=== PATIENT | female | born 1965 | race Caucasian/White ===

== ENCOUNTER 2022-12-22 02:53 | Emergency (ER) | payer OTHER, SELFPAY ==
[2022-12-22 02:55] VITALS: BP 141/81; PULSE 87; RESP 18; TEMP 36.8; O2SAT 99; BMI 23.5
[2022-12-22 03:11] VITALS: BP 162/94; PULSE 81
[2022-12-22] MEDS: EPINEPHrine 1 MG/ML VIAL 0.3 MG IM (03:11)
[2022-12-22] MEDS: diphenhydrAMINE HCL 50 MG/ML VIAL IVPUSH (03:16)
[2022-12-22] MEDS: methylPREDNISolone Sod Succ 125 MG/2 ML VIAL IVPUSH (03:16)
[2022-12-22] MEDS: Famotidine/PF 20 MG/2 ML VIAL IVPUSH (03:16)
[2022-12-22 03:53] VITALS: BP 130/68; PULSE 81; RESP 18; O2SAT 100
[2022-12-22 04:36] VITALS: BP 121/49; PULSE 77; RESP 14; TEMP 36.6; O2SAT 99
--- NOTE | 2022-12-22 04:58 | ED.ALLEREA ---
HPI - Allergic Reaction General Chief complaint: Allergic Reaction Stated complaint: Allergic reaction Time Seen by Provider: 12/22/22 03:06 Source: patient Mode of arrival: ambulatory Limitations: no limitations History of Present Illness HPI narrative: Patient had flu shot yesterday woke up at middle of the night with lip swelling and hives all over never had similar reaction in the past denies any shortness of breath no chest pain or palpitation Related Data Previous Rx's Medication Instructions Recorded diphenhydramine HCl 25 mg capsule 50 mg (2 x 25 mg) PO TID PRN 12/22/22 (Benadryl) allergic reaction #20 caps prednisone 20 mg tablet 40 mg (2 x 20 mg) PO DAILY #10 tabs 12/22/22 Allergies Allergy/AdvReac Type Severity Reaction Status Date / Time Sulfa (Sulfonamide Allergy Unknown headache Verified 03/22/14 00:00 Antibiotics) No Known Allergies Allergy Unverified 12/31/19 14:46 topiramate AdvReac Unknown confusion Verified 03/22/14 00:00 Review of Systems Review of Systems: Yes all other systems are reviewed and are negative [facility] Social History Social History Advance Directives: No Advance Directives Information Provided: Yes Patient : No Physical Exam ED Vital Signs: Vital Signs - 24 hr 12/22/22 02:55 12/22/22 03:11 12/22/22 03:53 Temperature 98.2 F Pulse Rate 87 81 81 Respiratory Rate 18 18 Blood Pressure 141/81 H 162/94 H 130/68 Pulse Oximetry 99 100 Oxygen Delivery Method Room Air 12/22/22 04:36 Temperature 97.8 F Pulse Rate 77 Respiratory Rate 14 Blood Pressure 121/49 L Pulse Oximetry 99 Oxygen Delivery Method Room Air BMI result Body Mass Index 23.5 Appearance: Alert. Oriented X3. No acute distress. Eyes: PERRLA, No Nystagmus ENT: Pharynx normal. Oral Mucosa moist upper lip swelling+ tongue and uvula normal Neck: Normal inspection. Neck supple. CVS: Normal heart rate and rhythm. Pulses normal. Respiratory: No respiratory distress. Equal air entry bilateral, no wheezing/rales/rhonchi Abdomen: Soft and nontender. Bowel sounds are present, no mass palpable, no CVA tenderness Skin: Skin warm and dry. Normal skin color. Normal skin turgor. Hives over the extremities Extremities: No lower extremity edema. No calf tenderness Neuro: Oriented X 3. No motor deficit. No sensory deficit.No cerebellar signs , cranial nerves II-XII intact Medications Administered Discontinued Medications Generic Name Dose Route Start Last Admin Trade Name Freq PRN Reason Stop Dose Admin Diphenhydramine HCl 50 mg 12/22/22 03:06 12/22/22 03:16 Diphenhydramine Hcl 50 Mg/Ml Vial IVPUSH 12/22/22 03:07 50 mg ONCE ONE Administration Epinephrine 0.3 mg 12/22/22 03:06 12/22/22 03:11 Epinephrine 1 Mg/Ml Vial IM 12/22/22 03:07 0.3 mg STAT STA Administration Famotidine 20 mg 12/22/22 03:06 12/22/22 03:16 Famotidine/Pf 20 Mg/2 Ml Vial IVPUSH 12/22/22 03:07 20 mg ONCE ONE Administration Methylprednisolone Sodium Succinate 125 mg 12/22/22 03:06 12/22/22 03:16 Methylprednisolone Sod Succ 125 Mg/2 Ml Vial IVPUSH 12/22/22 03:07 125 mg ONCE ONE Administration Medical Decision Making Medical Decision Making [facility] Narrative: Patient with acute allergic reaction with lip swelling and hives etiology not clear possibly from the flu shot received EpiPen Benadryl steroids and Pepcid improved discharge patient home Discharge Plan Discharge Clinical Impression: Allergic reaction Patient Disposition: Home, Self-Care Instructions: General Allergic Reaction (ED) Additional Instructions: Pursued you have allergic reaction to the flu shot Take prednisone and Benadryl as prescribed if hives come back Report to the ER if worsening of the rash Prescriptions: New diphenhydramine HCl [Benadryl] 25 mg capsule 50 mg PO TID PRN (Reason: allergic reaction) Qty: 20 0RF prednisone 20 mg tablet 40 mg PO DAILY Qty: 10 0RF Interventions: ED Discharge Assessment Last Done: 12/22/22 05:15 Discharge Date/Time: 12/22/22 05:16
== END 2022-12-22 05:16 | disposition home or self-care (01) ==
PROVIDERS: Emergency Provider Internal Medicine
DX: L50.9 Urticaria, unspecified (principal); T78.40XA Allergy, unspecified, initial encounter; X58.XXXA Exposure to other specified factors, initial encounter
CPT/HCPCS: 96372; 96374; 96375; 99284; J0171; J1200; J2930

== ENCOUNTER 2023-02-07 11:20 | Outpatient (AMB) | payer OTHER, SELFPAY ==
[2023-02-07 11:54] VITALS: BP 130/70; PULSE 98; TEMP 37; O2SAT 98; BMI 24.7
--- NOTE | 2023-02-07 11:54 | AM.OFFWIN_ITS ---
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 Allergic reaction-Hives/Sinus Intake Note: pt is here for c/o possible allergic reaction, hives and sinus issues Allergies diphenhydramine [From Banophen Anti-Itch] Allergy (Mild, Verified 02/07/23 11:59) Hives zinc acetate [From Banophen Anti-Itch] Allergy (Mild, Verified 02/07/23 11:59) Hives Sulfa (Sulfonamide Antibiotics) Allergy (Unknown, Verified 02/07/23 11:59) headache topiramate Adverse Reaction (Unknown, Verified 02/07/23 11:59) confusion Do you need a note to return to daycare/school/sports/work: Yes HPI HPI Comments History of Present Illness Details 57-year-old female presents for large re action and hives. Patient has an allergy to mushrooms accidentally ingested mushrooms soft. She endorses hives to come and go. She states this happened before in the thighs always come back worse and she has had anaphylaxis or 4. She also endorses some sinus pressure and fullness. Review of Systems Skin/Breast Details: Hives Reports pruritus Physical Exam Vital Signs: Last Vital Signs Temp 98.6 F 02/07/23 11:54 Pulse 98 02/07/23 11:54 BP 130/70 02/07/23 11:54 Pulse Ox 98 02/07/23 11:54 Oxygen Delivery Method Room Air 02/07/23 11:54 BMI result Body Mass Index 24.7 Const General: cooperative, no acute distress and alert Orientation/consciousness: patient oriented x3 Limitations: no limitations HEENT Head: Yes normal to inspection Ears: hearing grossly normal bilaterally and external ears normal General nose exam: Normal external nose present Eyes General: appearance normal, both eyes and all related structures Neck Other: No wheezing or stridor Neck: Yes normal visual inspection Chest Chest palpation & inspection: normal inspection of the chest Resp Effort & Inspection: normal respiratory effort, able to speak in complete sentences and no audible wheezes Auscultation: clear to auscultation bilaterally Cardio Rate: regular rate Rhythm: regular rhythm GI Inspection: Yes normal to inspection Palpation (GI): Soft to palpation and nontender Skin Other: Hives on the inner portion of right thigh General skin exam: no rashes or lesions noted Neuro General: patient oriented x3 Psych Appearance: grossly normal Mental Status: mental status grossly normal Speech and movement: Normal speech and movement present Affect: normal affect Attitude: cooperative Thought process: Normal thought process present Thought content: Normal thought content present Assessment & Plan Assessment & Plan (1) Allergic reaction: Code(s): T78.40XA - Allergy, unspecified, initial encounter Qualifiers: Encounter type: initial encounter Qualified Code(s): T78.40XA - Allergy, unspecified, initial encounter Plan: VSs. Exam notable for hives on the inner right thigh no wheezing or stridor present low suspicion for an for access. Will prescribe cetirizine prednisone and at the autoinjector. Plan VSS. Exam notable for high Center portion of the right thigh no wheezing or stridor. Full suspicion for anaphylaxis suspect allergic reaction will prescribe prednisone cetirizine and EpiPen Dragon Medications: New cetirizine (All Day Allergy (cetirizine)) Can take up to 40 mg daily 20 mg (2 x 10 mg) PO DAILY 5 days PRN 30 caps 0RF allergy symptoms epinephrine 0.3 mg (0.3 mL) IM Q4H PRN 2 ea 0RF anaphylaxis prednisone 50 mg PO DAILY 5 days 5 tabs 0RF Coding Level of Care Code New Pt Level 3 (48493) Diagnoses Allergic reaction, initial encounter T78.40XA Encounter type: initial encounter
== END 2023-02-07 12:42 | disposition home or self-care (01) ==
PROVIDERS: Visit Provider Physician Assistant
DX: T78.40XA Allergy, unspecified, initial encounter (principal)
CPT/HCPCS: 99203

== ENCOUNTER 2023-03-20 11:36 | Emergency (ER) | payer OTHER, SELFPAY ==
[2023-03-20 11:55] VITALS: BP 125/69; PULSE 78; RESP 18; TEMP 36.7; O2SAT 97; BMI 25.0
[2023-03-20 12:12] VITALS: BP 144/53; PULSE 74; RESP 14; O2SAT 98
[2023-03-20] MEDS: diphenhydrAMINE HCL 50 MG/ML VIAL IVPUSH (12:17)
[2023-03-20] MEDS: Famotidine/PF 20 MG/2 ML VIAL IVPUSH (12:17)
[2023-03-20] MEDS: methylPREDNISolone Sod Succ 125 MG/2 ML VIAL IVPUSH (12:18)
[2023-03-20 12:27] VITALS: BP 150/79; PULSE 75
[2023-03-20] MEDS: EPINEPHrine 1 MG/ML VIAL 0.3 MG IM (12:27)
--- NOTE | 2023-03-20 12:33 | PC.NURSE ---
pt medicated per MAR, facial swelling - lower lip, pt reports waking up with lower lip swelling, ate imitation crab last night. pt a&ox4, vss, lung sounds clear. pt reports hx of panic attacks.
[2023-03-20 13:30] VITALS: BP 103/46; PULSE 78; RESP 13; TEMP 37.1; O2SAT 98
--- NOTE | 2023-03-20 14:55 | ED.ALLEREA ---
HPI - Allergic Reaction General Chief complaint: Allergic Reaction Stated complaint: Diff Breathing Allergic Reaction to Seafood Time Seen by Provider: 03/20/23 12:10 Source: patient Mode of arrival: ambulatory Limitations: no limitations History of Present Illness HPI narrative: 57-year-old female with history of hyperlipidemia depression who presents emergency department for evaluation of allergic reaction. Patient states that she woke up this morning and had swelling of her right lower lip and a rash on her lower extremities. She states that the swelling of her lips got worse, she became short of breath, she felt dizzy and lightheaded, she denied difficulty swallowing, nausea or vomiting. She took Benadryl at home despite taking Benadryl her symptoms got worse therefore she came to the emergency department for evaluation. She states she has had allergic reaction before in the past after eating black olives. She has no known drug allergies. Related Data Home Medications Medication Instructions Recorded Confirmed atorvastatin 10 mg tablet 10 mg PO DAILY 02/07/23 brexpiprazole 0.5 mg tablet 0.5 mg PO DAILY 02/07/23 (Rexulti) escitalopram oxalate 20 mg tablet 20 mg PO DAILY 02/07/23 (Lexapro) hydroxyzine HCl 10 mg tablet 10 mg PO BID 02/07/23 lamotrigine 25 mg tablet 50 mg PO DAILY 02/07/23 levothyroxine 25 mcg tablet 25 mcg PO DAILY 02/07/23 lorazepam 1 mg tablet 1 mg PO BID 02/07/23 omeprazole 20 mg capsule,delayed 20 mg PO BID 02/07/23 release oxcarbazepine 300 mg tablet 300 mg PO BID 02/07/23 triamcinolone acetonide 0.1 % 1 appl topical BID-TID 02/07/23 topical cream vilazodone 20 mg tablet 20 mg PO DAILY 02/07/23 Previous Rx's Medication Instructions Recorded cetirizine 10 mg capsule (All Day 20 mg (2 x 10 mg) PO DAILY PRN 02/07/23 Allergy (cetirizine)) allergy symptoms 5 days #30 caps epinephrine 0.3 mg/0.3 mL 0.3 mg (0.3 mL) IM Q4H PRN 02/07/23 injection, auto-injector anaphylaxis #2 ea prednisone 50 mg tablet 50 mg PO DAILY 5 days #5 tabs 02/07/23 prednisone 20 mg tablet 60 mg (3 x 20 mg) PO DAILY 5 days 03/20/23 #15 tabs Allergies Allergy/AdvReac Type Severity Reaction Status Date / Time zinc acetate Allergy Mild Hives Verified 02/07/23 11:59 [From Banophen Anti-Itch] Sulfa (Sulfonamide Allergy Unknown headache Verified 02/07/23 11:59 Antibiotics) topiramate AdvReac Unknown confusion Verified 02/07/23 11:59 Review of Systems Review of Systems: Yes all other systems are reviewed and are negative [facility] Past Medical History [facility] Narrative: Social history: She denies tobacco and alcohol use. Social History Social History Smoked in Last 30 Days: No Use of substances other than those prescribed or required for medical reasons: No Advance Directives: No Advance Directives Information Provided: Yes Physical Exam ED Vital Signs: Vital Signs - 24 hr 03/20/23 11:55 03/20/23 12:12 03/20/23 12:27 Temperature 98.1 F Pulse Rate 78 74 75 Respiratory Rate 18 14 Blood Pressure 125/69 144/53 H 150/79 H Pulse Oximetry 97 98 Oxygen Delivery Method Room Air Room Air 03/20/23 13:30 Temperature 98.7 F Pulse Rate 78 Respiratory Rate 13 Blood Pressure 103/46 L Pulse Oximetry 98 Oxygen Delivery Method Room Air BMI result Body Mass Index 25.0 Vital signs were normal Exam: General: Awake, alert in no distress Head: Normocephalic, atraumatic EENT: PERRL, Lids symmetric swelling of the lower lip consistent with angioedema, sclera normal, conjunctiva normal, nose normal , ears normal, throat without erythema or exudates Neck: Supple, no adenopathy, no trachea midline or C-spine tenderness Lung: breath sounds symmetric, no wheezing, rales or rhonchi Chest: symmetric movement, nontender Heart: regular rate and rhythm, normal S1, S2 no murmurs or rubs Abdomen: soft, non-tender, nondistended, normal bowel sounds Back: no vertebral tenderness, no CVAT Extremities: no deformities, moves all extremities symmetrically Skin: Patient has an urticarial rash on her lower extremity Neuro: Awake, alert, oriented, normal speech, cranial nerves intact, moves all extremities symmetrically Psych: Pleasant, cooperative Medications Administered Discontinued Medications Generic Name Dose Route Start Last Admin Trade Name Freq PRN Reason Stop Dose Admin Diphenhydramine HCl 50 mg 03/20/23 12:07 03/20/23 12:17 Diphenhydramine Hcl 50 Mg/Ml Vial IVPUSH 03/20/23 12:08 50 mg ONCE ONE Administration Epinephrine 0.3 mg 03/20/23 12:17 03/20/23 12:27 Epinephrine 1 Mg/Ml Vial IM 03/20/23 12:18 0.3 mg STAT STA Administration Famotidine 20 mg 03/20/23 12:07 03/20/23 12:17 Famotidine/Pf 20 Mg/2 Ml Vial IVPUSH 03/20/23 12:08 20 mg ONCE ONE Administration Methylprednisolone Sodium Succinate 125 mg 03/20/23 12:07 03/20/23 12:18 Methylprednisolone Sod Succ 125 Mg/2 Ml Vial IVPUSH 03/20/23 12:08 125 mg ONCE ONE Administration Medical Decision Making Medical Decision Making MDM Narrative: 57-year-old female with a history of hyperlipidemia depression who presents emergency department for evaluation of allergic reaction that started earlier this morning at worse prior to coming to the emergency department. Patient has swelling of her lower lip, shortness of breath, dizziness and urticarial rash in her lower extremities. Patient was treated with the following medications: Epinephrine 0.3 mg IM, Solu-Medrol 125 mg IV, Benadryl 50 mg IV and Pepcid 20 mg IV Patient was placed on a cardiac and O2 saturation monitor. 15:03 Patient was observed on the cardiac and O2 saturation monitor for 2 hours after administration of the epinephrine with no rebound reaction. Patient's lip swelling did improve slightly, the patient's rash and shortness of breath resolved completely. Patient was discharged home with a prescription for prednisone 60 mg once a day for 5 days, she was advised to continue taking Benadryl as needed for rash and pruritus. She was given printed and verbal instructions prior to discharge Differential Diagnosis Differential diagnosis includes was not limited to allergic reaction, anaphylaxis Admission/Observation Consideration of admission/observation: Escalation of care including admission/observation considered Chronic Conditions Patient?s care impacted by: Other (Hyperlipidemia, depression) Discharge Plan Discharge Clinical Impression: Urticarial rash Allergic reaction Qualifiers: Encounter type: initial encounter Qualified Code(s): T78.40XA - Allergy, unspecified, initial encounter Angioedema of lips Qualifiers: Encounter type: initial encounter Qualified Code(s): T78.3XXA - Angioneurotic edema, initial encounter Patient Disposition: Home, Self-Care Instructions: General Allergic Reaction (ED) Additional Instructions: Take prednisone 20 mg pills, 3 pills once a day for 5 days. While you are taking prednisone, do not take any NSAIDs (Motrin, Advil, ibuprofen, Aleve, naproxen). Take your 1st dose of prednisone tomorrow morning. Take Benadryl (diphenhydramine) 25 mg pills, 2 pills 4 times a day for the next 2-3 days to help reduce the swelling and itchiness in the area of your rash. This medication will make you sleepy. Do not drive or work while taking this medication. Follow-up with your doctor in 2 days. Please return to the emergency department if your symptoms get worse or if you develop any symptoms that are concerning to you. Prescriptions: New prednisone 20 mg tablet 60 mg PO DAILY 5 Days Qty: 15 0RF No Action omeprazole 20 mg capsule,delayed release(DR/EC) 20 mg PO BID escitalopram oxalate [Lexapro] 20 mg tablet 20 mg PO DAILY triamcinolone acetonide 0.1 % cream 1 appl topical BID-TID atorvastatin 10 mg tablet 10 mg PO DAILY lorazepam 1 mg tablet 1 mg PO BID levothyroxine 25 mcg tablet 25 mcg PO DAILY hydroxyzine HCl 10 mg tablet 10 mg PO BID lamotrigine 25 mg tablet 50 mg PO DAILY oxcarbazepine 300 mg tablet 300 mg PO BID vilazodone 20 mg tablet 20 mg PO DAILY Rexulti 0.5 mg tablet 0.5 mg PO DAILY prednisone 50 mg tablet 50 mg PO DAILY 5 Days Qty: 5 0RF All Day Allergy (cetirizine) 10 mg capsule 20 mg PO DAILY PRN (Reason: allergy symptoms) 5 Days Qty: 30 0RF Rx Instructions: Can take up to 40 mg daily epinephrine 0.3 mg/0.3 mL auto-injector 0.3 mg IM Q4H PRN (Reason: anaphylaxis) Qty: 2 0RF
== END 2023-03-20 15:08 | disposition home or self-care (01) ==
PROVIDERS: Emergency Provider Emergency Medicine Emergency Medical Services
DX: T78.3XXA Angioneurotic edema, initial encounter (principal); T78.40XA Allergy, unspecified, initial encounter; X58.XXXA Exposure to other specified factors, initial encounter; E78.5 Hyperlipidemia, unspecified
CPT/HCPCS: 96372; 96374; 96375; 99284; J0171; J1200; J2930

== ENCOUNTER 2023-04-13 23:15 | Emergency (ER) | payer MEDICARE, MEDICAID, SELFPAY ==
[2023-04-13 23:20] VITALS: BP 163/93; PULSE 105; RESP 18; TEMP 36.8; O2SAT 97; BMI 24.9
--- NOTE | 2023-04-13 23:45 | ED_ITS ---
HPI - Allergic Reaction General Chief complaint: Allergic Reaction Stated complaint: allergic reaction Time Seen by Provider: 04/13/23 23:43 Source: patient and family Mode of arrival: ambulatory Limitations: no limitations History of Present Illness HPI narrative: 57-year-old female came in for evaluation of lip swelling, rashes and itching on the body after taking a shower with a soap that she has been using for months patient did not realize she was allergic to the soap, same thing happen yesterday patient had to administer 2 EpiPen at home yesterday to control the symptoms. Upper lip swelling, mild facial swelling, diffuse rash and hives on torso noticed on exam. No voice change, no SOB. Related Data Home Medications Medication Instructions Recorded Confirmed atorvastatin 10 mg tablet 10 mg PO DAILY 02/07/23 brexpiprazole 0.5 mg tablet 0.5 mg PO DAILY 02/07/23 (Rexulti) escitalopram oxalate 20 mg tablet 20 mg PO DAILY 02/07/23 (Lexapro) hydroxyzine HCl 10 mg tablet 10 mg PO BID 02/07/23 lamotrigine 25 mg tablet 50 mg PO DAILY 02/07/23 levothyroxine 25 mcg tablet 25 mcg PO DAILY 02/07/23 lorazepam 1 mg tablet 1 mg PO BID 02/07/23 omeprazole 20 mg capsule,delayed 20 mg PO BID 02/07/23 release oxcarbazepine 300 mg tablet 300 mg PO BID 02/07/23 triamcinolone acetonide 0.1 % 1 appl topical BID-TID 02/07/23 topical cream vilazodone 20 mg tablet 20 mg PO DAILY 02/07/23 Previous Rx's Medication Instructions Recorded cetirizine 10 mg capsule (All Day 20 mg (2 x 10 mg) PO DAILY PRN 02/07/23 Allergy (cetirizine)) allergy symptoms 5 days #30 caps epinephrine 0.3 mg/0.3 mL 0.3 mg (0.3 mL) IM Q4H PRN 02/07/23 injection, auto-injector anaphylaxis #2 ea prednisone 50 mg tablet 50 mg PO DAILY 5 days #5 tabs 02/07/23 prednisone 20 mg tablet 60 mg (3 x 20 mg) PO DAILY 5 days 03/20/23 #15 tabs epinephrine 0.3 mg/0.3 mL 0.3 mg (0.3 mL) IM Q4H PRN 04/14/23 injection, auto-injector (EpiPen anaphylaxis #2 ea 2-Reg) Allergies Allergy/AdvReac Type Severity Reaction Status Date / Time zinc acetate Allergy Mild Hives Verified 04/13/23 23:19 [From Banophen Anti-Itch] Sulfa (Sulfonamide Allergy Unknown headache Verified 04/13/23 23:19 Antibiotics) topiramate AdvReac Unknown confusion Verified 04/13/23 23:19 Review of Systems Review of Systems: All other systems are reviewed and are negative Constitutional: Reports as per HPI and Reports no additional constitutional complaints Eyes: Reports as per HPI and Reports no additional eye complaints Reports system reviewed and no additional complaints, except as documented Cardiovascular: Reports as per HPI and Reports no additional cardiovascular complaints Respiratory: Reports as per HPI and Reports no additional respiratory complaints Gastrointestinal: Reports as per HPI and Reports no additional gastrointestinal complaints Genitourinary: Reports no additional female genitourinary complaints Musculoskeletal: Reports no additional musculoskeletal complaints Skin/Breast: Reports system reviewed and no additional complaints, except as docu Psychiatric: Reports no additional psychiatric complaints Endocrine: Reports no additional endocrine complaints Hematologic/Lymphatic: Reports no additional hematologic/lymphatic complaints Allergic/Immunologic: Reports no additional allergic/immunologic complaints Reports system reviewed and no additional complaints, except as documented and Reports Abnormal speech present [facility] Social History Social History Advance Directives: No Advance Directives Information Provided: No Physical Exam ED Vital Signs: Vital Signs - 24 hr 04/13/23 23:20 Temperature 98.3 F Pulse Rate 105 H Respiratory Rate 18 Blood Pressure 163/93 H Pulse Oximetry 97 Oxygen Delivery Method Room Air BMI result Body Mass Index 24.9 Vital signs have been reviewed and appear to be correct. Blood pressure elevated. Heart rate normal. Respiratory rate normal. Temperature normal. Oxygen saturation normal. Appearance: Alert. Oriented X3. No acute distress. Head: Normal external exam. Normocephalic. Atraumatic. No [place] signs noted. No raccoon eyes noted Eyes: PERRLA. EOMI. Conjunctiva and sclera normal. Eyelids normal. ENT: TM's Normal. Pharynx normal. Uvula midline. Moist mucous membranes. No trismus noted. No drooling noted. No muffled voice noted. Neck: Normal inspection. Neck supple. FROM. No adenopathy. Thyroid Normal. No meningeal signs. No neck mass noted. CVS: Normal heart rate and rhythm. Heart sound normal. No murmurs noted. Pulses normal throughout. Respiratory: No respiratory distress. Painless inspiration. Breath sounds normal. No wheezes/rales/rhonchi noted. Chest nontender. No accessory muscle usage noted or decreased air movement noted. Abdomen: Soft and nontender. Bowel sounds normal in all 4 quadrants. No distention noted. No organomegaly noted. No visible injury noted. Back: No CVA tenderness. Full range of motion noted. Skin: Upper lip swelling, no tongue swelling all patent airway with no stridor, diffuse hives mostly on the anterior abdomin. Extremities: No lower extremity edema. Extremities exhibit normal range of motion. Extremities nontender. Neuro: Oriented X 3. Cranial nerve exam: II-XII are grossly intact No motor deficit. No sensory deficit. Reflexes normal. Course Reevaluation(s) Reevaluation #1: Patient received 2 L of normal saline, Solu-Medrol, Benadryl, decrease itching and rashes and facial swelling, patent airway. Will discharge the patient with EpiPen, refrain from using the same soap that caused the patient's symptoms. Time: 01:10 Medications Administered Discontinued Medications Generic Name Dose Route Start Last Admin Trade Name Freq PRN Reason Stop Dose Admin Diphenhydramine HCl 50 mg 04/13/23 23:43 04/13/23 23:56 Diphenhydramine Hcl 50 Mg/Ml Vial IVPUSH 04/13/23 23:44 50 mg ONCE ONE Administration Famotidine 20 mg 04/13/23 23:43 04/13/23 23:56 Famotidine/Pf 20 Mg/2 Ml Vial IVPUSH 04/13/23 23:44 20 mg ONCE ONE Administration Sodium Chloride 1,000 mls @ 999 mls/hr 04/13/23 23:43 04/13/23 23:57 Ns IV 04/14/23 00:43 999 mls/hr .Q1H1M ONE Administration Methylprednisolone Sodium Succinate 125 mg 04/13/23 23:43 04/13/23 23:56 Methylprednisolone Sod Succ 125 Mg/2 Ml Vial IVPUSH 04/13/23 23:44 125 mg ONCE ONE Administration Medical Decision Making Differential Diagnosis Differential Diagnoses: The differential diagnosis associated with the presentation includes (Angioedema, allergic reaction, upper airway obstruction.) Admission/Observation Consideration of admission/observation: Escalation of care including admission/observation considered Discharge Plan Discharge Clinical Impression: Allergic reaction, Angioedema Patient Disposition: Home, Self-Care Instructions: Angioedema (ED) Additional Instructions: Avoid using the same soap that caused your symptoms. Prescriptions: New epinephrine [EpiPen 2-Reg] 0.3 mg/0.3 mL auto-injector 0.3 mg IM Q4H PRN (Reason: anaphylaxis) Qty: 2 3RF No Action prednisone 20 mg tablet 60 mg PO DAILY 5 Days Qty: 15 0RF omeprazole 20 mg capsule,delayed release(DR/EC) 20 mg PO BID escitalopram oxalate [Lexapro] 20 mg tablet 20 mg PO DAILY triamcinolone acetonide 0.1 % cream 1 appl topical BID-TID atorvastatin 10 mg tablet 10 mg PO DAILY lorazepam 1 mg tablet 1 mg PO BID levothyroxine 25 mcg tablet 25 mcg PO DAILY hydroxyzine HCl 10 mg tablet 10 mg PO BID lamotrigine 25 mg tablet 50 mg PO DAILY oxcarbazepine 300 mg tablet 300 mg PO BID vilazodone 20 mg tablet 20 mg PO DAILY Rexulti 0.5 mg tablet 0.5 mg PO DAILY prednisone 50 mg tablet 50 mg PO DAILY 5 Days Qty: 5 0RF All Day Allergy (cetirizine) 10 mg capsule 20 mg PO DAILY PRN (Reason: allergy symptoms) 5 Days Qty: 30 0RF Rx Instructions: Can take up to 40 mg daily epinephrine 0.3 mg/0.3 mL auto-injector 0.3 mg IM Q4H PRN (Reason: anaphylaxis) Qty: 2 0RF Referrals: Migel Davis MD [Primary Care Provider] -
[2023-04-13] MEDS: Famotidine/PF 20 MG/2 ML VIAL IVPUSH (23:56)
[2023-04-13] MEDS: methylPREDNISolone Sod Succ 125 MG/2 ML VIAL IVPUSH (23:56)
[2023-04-13] MEDS: diphenhydrAMINE HCL 50 MG/ML VIAL IVPUSH (23:56)
[2023-04-13] MEDS: 0.9 % Sodium Chloride 1,000 ML 999 ML IV (23:57)
[2023-04-14] MEDS: 0.9 % Sodium Chloride 1,000 ML 999 ML IV (01:26)
[2023-04-14 03:06] VITALS: BP 144/80; PULSE 77; RESP 14; TEMP 36.7; O2SAT 97
--- NOTE | 2023-04-14 03:34 | PC.NURSE ---
pt denies difficulty breathing vss pt ambulatory at discharge. iv removed at discharge pt verbalized concern about no script for steroid at home use this rn made dr harp aware of pt concern. script added pt made aware. pt provided with discharge packet. pt verbalized understanding of discharge plan
== END 2023-04-14 03:39 | disposition home or self-care (01) ==
PROVIDERS: Emergency Provider Emergency Medicine; PCP Pediatrics
DX: L50.0 Allergic urticaria (principal); R22.9 Localized swelling, mass and lump, unspecified; T78.49XA Other allergy, initial encounter; X58.XXXA Exposure to other specified factors, initial encounter; Z79.899 Other long term (current) drug therapy
CPT/HCPCS: 96361; 96374; 96375; 99284; J1200; J2930

== ENCOUNTER 2023-05-03 14:23 | Outpatient (AMB) | payer OTHER, SELFPAY ==
[2023-05-03 14:38] VITALS: BP 152/84; PULSE 77; TEMP 36.8; O2SAT 97; BMI 26.3
--- NOTE | 2023-05-03 14:38 | AM.OFFWIN_ITS ---
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 PFSH Social History Patient Tobacco Use Status: Never used Tobacco Review of Systems Const All systems reviewed & are unremarkable except as noted in HPI and below Physical Exam Vital Signs: Last Vital Signs Temp 98.3 F 05/03/23 14:38 Pulse 77 05/03/23 14:38 BP 152/84 H 05/03/23 14:38 Pulse Ox 97 05/03/23 14:38 Oxygen Delivery Method Room Air 05/03/23 14:38 BMI result Body Mass Index 26.3 Const General: comfortable and no acute distress HEENT Head: Yes normocephalic Ears: external ears normal and TM's normal bilaterally General nose exam: Abnormal mucous membranes and turbinates present boggy and erythematous and Nasal discharge present Face and sinus: Yes normal facial exam Mouth: Normal oral and palatal mucosa present Throat: Yes posterior oropharynx normal Resp Effort & Inspection: normal respiratory effort, no audible wheezes and no cough Auscultation: clear to auscultation bilaterally Cardio Rate: regular rate Rhythm: regular rhythm Assessment & Plan Assessment & Plan (1) Acute rhinosinusitis: Code(s): J01.90 - Acute sinusitis, unspecified Plan: - OTC Cold remedies - Warm fluids - Rest Medications: New 2 azithromycin 500 mg PO DAILY 3 tabs 0RF 3 days J01.90 - Acute sinusitis, unspecified Coding Level of Care Code Est Pt Level 2 (89804) Diagnoses Acute rhinosinusitis J01.90 Time Spent (min) 10
== END 2023-05-03 15:11 | disposition home or self-care (01) ==
PROVIDERS: PCP Pediatrics; Visit Provider Nurse Practitioner Family
DX: J01.90 Acute sinusitis, unspecified (principal)
CPT/HCPCS: 99213

== ENCOUNTER 2023-05-15 10:46 | Outpatient (AMB) | payer OTHER, SELFPAY ==
[2023-05-15 11:16] VITALS: BP 126/70; PULSE 85; TEMP 36.6; O2SAT 98; BMI 26.3
--- NOTE | 2023-05-15 11:16 | MHC.OFFWIV ---
Intake Vital Signs 05/15/23 11:16 Height 5 ft 4 in Weight 153 lb 2 oz BMI 26.3 BP 126/70 Blood Pressure Location Rt brachial Position Sitting Pulse 85 Pulse Source Pulse Oximeter Temp 97.9 F Temp Source Oral Pulse Oximetry (%) 98 Oxygen Delivery Method Room Air Intake Visit Reasons: EP Allergic reactions/Lip Swelling Intake Note: Pt is here c/o having an allergic reaction to an ice pop. Pt states she ate it last night and woke up with swollen lips. Patient Tobacco Use Status: Never used Tobacco Allergies zinc acetate [From Banophen Anti-Itch] Allergy (Mild, Verified 05/15/23 11:17) Hives Sulfa (Sulfonamide Antibiotics) Allergy (Unknown, Verified 05/15/23 11:17) headache topiramate Adverse Reaction (Unknown, Verified 05/15/23 11:17) confusion Do you need a note to return to daycare/school/sports/work: No HPI HPI Comments History of Present Illness Details This is a 57-year-old female with a past medical history of multiple food and environmental allergies, hyperlipidemia and depression presenting for evaluation of swelling in her lower lip that she woke up with this morning. Patient states that she ate a popsicle last night at approximately 10:00 p.m., had no symptoms, went to bed and woke up with swelling in her lower lip. Patient denies having any hives, enlargement of her tongue, difficulty swallowing or shortness of breath. Patient took a Benadryl 25 mg at 10:00 a.m. today and presented to the urgent care for evaluation. [facility] Social History Patient Tobacco Use Status: Never used Tobacco Review of Systems Const All systems reviewed & are unremarkable except as noted in HPI and below Denies chills, Denies fatigue and Denies fever(s) Eyes Reports as per HPI ENT Details: lower lip swelling Denies sore throat, Denies throat swelling and Denies tongue swelling Card Reports no additional complaints Resp Reports no additional complaints Endo Denies fatigue Aller/Immun Reports no additional complaints, Denies throat swelling and Denies tongue swelling Physical Exam Vital Signs: Last Vital Signs Temp 97.9 F 05/15/23 11:16 Pulse 85 05/15/23 11:16 BP 126/70 05/15/23 11:16 Pulse Ox 98 05/15/23 11:16 Oxygen Delivery Method Room Air 05/15/23 11:16 BMI result Body Mass Index 26.3 Patient is not tachycardic, tachypneic or hypoxic. Const General: cooperative, healthy appearing, comfortable, no acute distress, alert, awake and Physically active; No acute distress Nutritional Appearance: average body habitus Orientation/consciousness: patient oriented x3 Limitations: no limitations HEENT Head: Yes normal to inspection Ears: hearing grossly normal bilaterally General nose exam: Normal external nose present Face and sinus: Yes sinuses nontender, No sinus tenderness and No amato face Mouth: Normal oral and palatal mucosa present, lip abnormal (mild edema lower lip; no edema upper lip or tongue), oropharynx normal, moist mucous membranes, no muffled voice and normal tongue Teeth and gingiva: dentition normal Throat: Yes posterior oropharynx normal (There is no edema of the posterior oropharynx) and Yes other (Patient is managing secretions independently) Eyes Eyelids: Yes eyelids normal Conjunctivae: conjunctivae normal Sclerae: sclerae normal Corneas: corneas normal Pupils: Equal, round and reactive pupils present EOM: EOMs intact bilaterally Resp Effort & Inspection: normal respiratory effort, able to speak in complete sentences, no audible wheezes and not tachypneic Auscultation: clear to auscultation bilaterally Cardio Rate: regular rate Rhythm: regular rhythm Skin Other: no hives, wheals, urticaria noted on examination Neuro General: patient oriented x3 Cranial nerves: Yes Equal, round and reactive pupils present Psych Appearance: grossly normal Mental Status: mental status grossly normal Insight: Good insight present (Psych) Judgement: Good judgement present (Psych) Assessment & Plan Assessment & Plan (1) Lip swelling: Comment: Patient has subjective enlargement of the lower lip only and no clinical signs consistent with anaphylaxis are global allergic reaction. Code(s): R22.0 - Localized swelling, mass and lump, head Plan: Diphenhydramine 25 mg q.6 hours x 24 hours. Patient will go to the emergency department directly if her symptoms acutely worsen. Coding Level of Care Code Est Pt Level 3 (79084) Diagnoses Lip swelling R22.0 Time Spent (min) 20
== END 2023-05-15 11:43 | disposition home or self-care (01) ==
PROVIDERS: PCP Pediatrics; Visit Provider Physician Assistant
DX: R22.0 Localized swelling, mass and lump, head (principal)
CPT/HCPCS: 99213

== ENCOUNTER 2023-05-29 09:16 | Outpatient (AMB) | payer OTHER, SELFPAY ==
[2023-05-29 10:50] VITALS: BP 140/100; TEMP 37.4; BMI 25.7
--- NOTE | 2023-05-29 10:50 | MHC.OFFWIV ---
Intake Vital Signs 05/29/23 10:50 Height 5 ft 4 in Weight 150 lb BMI 25.7 BP 140/100 H Blood Pressure Location Lt brachial Position Sitting Temp 99.3 F Temp Source Temporal Artery Scan Intake Visit Reasons: EST/allergy eye swelling ([phone]) Intake Note: pt is here today for allergy eye swelling started yesterday Patient Tobacco Use Status: Never used Tobacco Allergies zinc acetate [From Banophen Anti-Itch] Allergy (Mild, Verified 05/29/23 11:23) Hives Sulfa (Sulfonamide Antibiotics) Allergy (Unknown, Verified 05/29/23 11:23) headache topiramate Adverse Reaction (Unknown, Verified 05/29/23 11:23) confusion Medication List - Last Reconciled 05/29/23 by Arnaud Campos MD atorvastatin 10 mg PO DAILY azelastine intranasal azithromycin 500 mg PO DAILY 3 days epinephrine (EpiPen 2-Reg) 0.3 mg (0.3 mL) IM Q4H PRN epinephrine 0.3 mg (0.3 mL) IM Q4H PRN escitalopram oxalate (Lexapro) 20 mg PO DAILY levothyroxine 25 mcg PO DAILY lorazepam 1 mg PO BID omeprazole 20 mg PO BID triamcinolone acetonide 0.1% 1 appl topical BID-TID Do you need a note to return to daycare/school/sports/work: No HPI EST/allergy eye swelling ([phone]) HPI Details 57 yr old female presents to the office with complaints of a rash. Sx present for a day. Mostly in the upper thighs and around the eyes. Predominant complaint is itching. 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 Right and left thighs: Fading erythematous macular lesions. No vesicles or pustules Assessment & Plan Assessment & Plan (1) Rash: Code(s): R21 - Rash and other nonspecific skin eruption Plan: No lesions around the eyes seen. Most likely allergic reaction. Prednisone called in. Coding Level of Care Code Est Pt Level 3 (34361) Diagnoses Rash R21
== END 2023-05-29 12:43 | disposition home or self-care (01) ==
PROVIDERS: PCP Pediatrics; Visit Provider Internal Medicine
DX: R21 Rash and other nonspecific skin eruption (principal)
CPT/HCPCS: 99213

== ENCOUNTER 2023-06-09 23:34 | Emergency (ER) | payer OTHER, SELFPAY ==
[2023-06-09 23:40] VITALS: BP 151/71; PULSE 77; RESP 16; TEMP 36.6; O2SAT 99; BMI 25.7
--- NOTE | 2023-06-10 | ED.ALLEREA ---
HPI - Allergic Reaction General Chief complaint: Allergic Reaction Stated complaint: allergic reaction Time Seen by Provider: 06/09/23 23:45 Source: patient Mode of arrival: ambulatory Limitations: no limitations History of Present Illness HPI narrative: 57 yo female with PMH of allergies, recent sinusitis took amoxicillin at 2pm and 9pm upper lip felt tight and swollen no resp issues no rash took 50mg benadryl prior to arrival it has not worsened. Not on CRUZ-i MD complaint: facial swelling Onset (ago): hour(s) (11pm ) Exposure: medication Symptoms: lip swelling Severity: mild Treatment prior to arrival: benadryl Previous Allergic Reaction History: prior ED visit(s) and angioedema Related Data Home Medications Medication Instructions Recorded Confirmed atorvastatin 10 mg tablet 10 mg PO DAILY 02/07/23 05/29/23 escitalopram oxalate 20 mg tablet 20 mg PO DAILY 02/07/23 05/29/23 (Lexapro) levothyroxine 25 mcg tablet 25 mcg PO DAILY 02/07/23 05/29/23 lorazepam 1 mg tablet 1 mg PO BID 02/07/23 05/29/23 omeprazole 20 mg capsule,delayed 20 mg PO BID 02/07/23 05/29/23 release triamcinolone acetonide 0.1 % 1 appl topical BID-TID 02/07/23 05/29/23 topical cream azelastine 137 mcg (0.1 %) nasal intranasal 05/29/23 05/29/23 spray aerosol Previous Rx's Medication Instructions Recorded epinephrine 0.3 mg/0.3 mL 0.3 mg (0.3 mL) IM Q4H PRN 02/07/23 injection, auto-injector anaphylaxis #2 ea epinephrine 0.3 mg/0.3 mL 0.3 mg (0.3 mL) IM Q4H PRN 04/14/23 injection, auto-injector (EpiPen anaphylaxis #2 ea 2-Reg) azithromycin 500 mg tablet 500 mg PO DAILY 3 days #3 tabs 05/03/23 prednisone 20 mg tablet 60 mg (3 x 20 mg) PO DAILY #9 tabs 05/29/23 azithromycin 250 mg tablet See Rx Instructions PO .COMPLEX #6 06/10/23 tabs epinephrine 0.3 mg/0.3 mL 0.3 mg (0.3 mL) IM Q10M PRN 06/10/23 injection, auto-injector anaphylaxis #2 ea Allergies Allergy/AdvReac Type Severity Reaction Status Date / Time zinc acetate Allergy Mild Hives Verified 06/09/23 23:40 [From Banophen Anti-Itch] Sulfa (Sulfonamide Allergy Unknown headache Verified 06/09/23 23:40 Antibiotics) amoxicillin Allergy Swelling Verified 06/09/23 23:40 topiramate AdvReac Unknown confusion Verified 06/09/23 23:40 Review of Systems Review of Systems: Constitutional : No Fever, No Chills ENT/Mouth : positive oral swelling, No Hoarseness, No Swallowing Difficulty Eyes: No Eye Pain, No Swelling, No Redness Cardiovascular : No Chest Pain, No SOB Respiratory : No Cough, No Sputum, No Wheezing, No Smoke Exposure, No Dyspnea Gastrointestinal : No Nausea, No Vomiting, No Diarrhea, No abdominal Pain Genitourinary : No Dysuria, No Urinary Frequency, No Hematuria Musculoskeletal : No joint pain, No Myalgias, No Joint Swelling Skin : No Skin Lesions, no rash Neuro : No Weakness, No Numbness, No Headache Psych : No Anxiety/Panic, No Depression Heme/Lymph: No Bruising, No Lymphadenopathy Endocrine : No Polyuria, No Polydipsia All other systems reviewed and are negative [facility] Past Medical History Attestation statement: The following information was validated with the patient. Source: old records reviewed Medical History Allergies Sinusitis Depression Social History Social History Patient Tobacco Use Status: Never used Tobacco Smoked in Last 30 Days: No Use of substances other than those prescribed or required for medical reasons: No Any prior treatment program specific to substance use: No Advance Directives: No Advance Directives Information Provided: No Physical Exam ED Vital Signs: Vital Signs - 24 hr 06/09/23 23:40 Temperature 97.9 F Pulse Rate 77 Respiratory Rate 16 Blood Pressure 151/71 H Pulse Oximetry 99 Oxygen Delivery Method Room Air BMI result Body Mass Index 25.7 Appearance: Alert. Oriented X3. No acute distress. Eyes: Pupils equal, round and reactive to light. ENT: upper lip mild swelling otherwise oral area is normal no tongue, soft palate uvula swelling no hoarse voice no muffled voice Neck: Normal inspection. Neck supple. CVS: Normal heart rate and rhythm. Pulses normal. Respiratory: No respiratory distress. Breath sounds normal. Abdomen: Soft and nontender. Skin: Skin warm and dry. Normal skin color. Normal skin turgor. Extremities: No lower extremity edema. No calf ttp Neuro: Oriented X 3. No motor deficit. No sensory deficit. Course Course Course Narrative: symptoms improving anticipate she will be DC - plan to watch until 2am but swelling mostly resolved, already has epi pen at home Medications Administered Discontinued Medications Generic Name Dose Route Start Last Admin Trade Name Kristen PRN Reason Stop Dose Admin Famotidine 20 mg 06/09/23 23:49 06/10/23 00:06 Famotidine/Pf 20 Mg/2 Ml Vial IVPUSH 06/09/23 23:50 20 mg ONCE ONE Administration Loratadine 10 mg 06/09/23 23:49 06/10/23 00:06 Loratadine 10 Mg Tablet PO 06/09/23 23:50 10 mg ONCE ONE Administration Medical Decision Making Medical Decision Making [facility] Narrative: 57 yo female with PMH of depression, allergies, just took a 2 doses of amoxicillin yesterday 2pm and 9pm for sinusitis around 11pm she wok eup with lip swelling and tingling it is mild. at this time no need for epi pen she is refusing steroids as she states it has caused rash and worsens her mental health. We did discuss if it worsens she will need IV steroids. Will observe and take her off of amoxicillin Differential Diagnosis Differential Diagnoses: The differential diagnosis associated with the presentation includes allergic reaction Admission/Observation Consideration of admission/observation: Escalation of care including admission/observation considered observe for a couple of hours to make sure there is no progression External Record Review External record reviewed: Outpatient record Prescription Management I considered prescription management with: Antibiotic and Other Discharge Plan Discharge Clinical Impression: Lip swelling Patient Disposition: Home, Self-Care Instructions: Angioedema (ED) Additional Instructions: stop taking amoxicillin return for worsening symptoms of throat closing, inability to breathe, tongue swelling or any other concerns. a new antibiotic in in the pharmacy for you along with epi pen you can take zyrtec OR claritin daily for the next week Prescriptions: New azithromycin 250 mg tablet See Rx Instructions PO .COMPLEX Qty: 6 0RF Rx Instructions: For 250 mg dose pack: take 500 mg today (day 1), then 250 mg for 4 days (days 2-5) epinephrine 0.3 mg/0.3 mL auto-injector 0.3 mg IM Q10M PRN (Reason: anaphylaxis) Qty: 2 0RF Rx Instructions: for 2 doses No Action epinephrine [EpiPen 2-Reg] 0.3 mg/0.3 mL auto-injector 0.3 mg IM Q4H PRN (Reason: anaphylaxis) Qty: 2 3RF omeprazole 20 mg capsule,delayed release(DR/EC) 20 mg PO BID escitalopram oxalate [Lexapro] 20 mg tablet 20 mg PO DAILY triamcinolone acetonide 0.1 % cream 1 appl topical BID-TID atorvastatin 10 mg tablet 10 mg PO DAILY lorazepam 1 mg tablet 1 mg PO BID levothyroxine 25 mcg tablet 25 mcg PO DAILY epinephrine 0.3 mg/0.3 mL auto-injector 0.3 mg IM Q4H PRN (Reason: anaphylaxis) Qty: 2 0RF azithromycin 500 mg tablet 500 mg PO DAILY 3 Days Qty: 3 0RF azelastine 137 mcg (0.1 %) aerosol,spray intranasal prednisone 20 mg tablet 60 mg PO DAILY Qty: 9 0RF
[2023-06-10] MEDS: Famotidine/PF 20 MG/2 ML VIAL IVPUSH (00:06)
[2023-06-10] MEDS: Loratadine 10 MG TABLET PO (00:06)
[2023-06-10 02:22] VITALS: BP 128/66; PULSE 64; RESP 13; TEMP 36.8; O2SAT 98
== END 2023-06-10 02:28 | disposition home or self-care (01) ==
PROVIDERS: Emergency Provider Emergency Medicine
DX: K13.0 Diseases of lips (principal); J32.9 Chronic sinusitis, unspecified; Z91.09 Other allergy status, other than to drugs and biological substances
CPT/HCPCS: 96374; 99284

== ENCOUNTER 2023-06-11 21:53 | Emergency (ER) | payer MEDICARE, MEDICAID, SELFPAY ==
--- NOTE | 2023-06-11 | ECG_ITS ---
Test Reason : ALLERGIC REACTION Blood Pressure : / mmHG Vent. Rate : 098 BPM Atrial Rate : 098 BPM P-R Int : 136 ms QRS Dur : 076 ms QT Int : 338 ms P-R-T Axes : 062 065 017 degrees QTc Int : 431 ms Normal sinus rhythm T wave abnormality, consider inferior ischemia Abnormal ECG When compared to the previous EKG of 05 july 2010, inferior T inversions new. Referred By: Generic ED Physician Electronically Signed By:SAMMIE DANIELSON
[2023-06-11 22:01] VITALS: BP 165/76; PULSE 97; RESP 14; TEMP 36.9; O2SAT 97; BMI 31.4
--- NOTE | 2023-06-11 22:18 | ED.ALLEREA ---
HPI - Allergic Reaction General Chief complaint: Allergic Reaction Stated complaint: Allergic reaction antibiotics Time Seen by Provider: 06/11/23 22:11 Source: patient Mode of arrival: ambulatory Limitations: no limitations History of Present Illness HPI narrative: Patient allergic to mushrooms and amoxicillin start taking Zithromax since yesterday sinusitis also patient had popcorn with new type of salt which she had yesterday today again she had popcorn after eating popcorn she noticed swelling of the lower lip no rash no itching swelling localized to the lower lip no difficulty in breathing no tongue swelling speech is normal no nausea no vomiting Related Data Home Medications Medication Instructions Recorded Confirmed atorvastatin 10 mg tablet 10 mg PO DAILY 02/07/23 05/29/23 escitalopram oxalate 20 mg tablet 20 mg PO DAILY 02/07/23 05/29/23 (Lexapro) levothyroxine 25 mcg tablet 25 mcg PO DAILY 02/07/23 05/29/23 lorazepam 1 mg tablet 1 mg PO BID 02/07/23 05/29/23 omeprazole 20 mg capsule,delayed 20 mg PO BID 02/07/23 05/29/23 release triamcinolone acetonide 0.1 % 1 appl topical BID-TID 02/07/23 05/29/23 topical cream azelastine 137 mcg (0.1 %) nasal intranasal 05/29/23 05/29/23 spray aerosol Previous Rx's Medication Instructions Recorded epinephrine 0.3 mg/0.3 mL 0.3 mg (0.3 mL) IM Q4H PRN 02/07/23 injection, auto-injector anaphylaxis #2 ea epinephrine 0.3 mg/0.3 mL 0.3 mg (0.3 mL) IM Q4H PRN 04/14/23 injection, auto-injector (EpiPen anaphylaxis #2 ea 2-Reg) azithromycin 500 mg tablet 500 mg PO DAILY 3 days #3 tabs 05/03/23 prednisone 20 mg tablet 60 mg (3 x 20 mg) PO DAILY #9 tabs 05/29/23 azithromycin 250 mg tablet See Rx Instructions PO .COMPLEX #6 06/10/23 tabs epinephrine 0.3 mg/0.3 mL 0.3 mg (0.3 mL) IM Q10M PRN 06/10/23 injection, auto-injector anaphylaxis #2 ea Allergies Allergy/AdvReac Type Severity Reaction Status Date / Time zinc acetate Allergy Mild Hives Verified 06/11/23 22:01 [From Banophen Anti-Itch] Sulfa (Sulfonamide Allergy Unknown headache Verified 06/11/23 22:01 Antibiotics) amoxicillin Allergy Swelling Verified 06/11/23 22:01 topiramate AdvReac Unknown confusion Verified 06/11/23 22:01 Review of Systems Review of Systems: Yes all other systems are reviewed and are negative PMFSH Past Medical History Medical History Allergies Sinusitis Depression Social History Social History Patient Tobacco Use Status: Never used Tobacco Smoked in Last 30 Days: No Use of substances other than those prescribed or required for medical reasons: No Advance Directives: No Advance Directives Information Provided: No Patient : No Physical Exam ED Vital Signs: Vital Signs - 24 hr 06/11/23 22:01 06/11/23 23:57 Temperature 98.5 F 97.8 F Pulse Rate 97 76 Respiratory Rate 14 12 Blood Pressure 165/76 H 118/70 Pulse Oximetry 97 97 Oxygen Delivery Method Room Air Room Air BMI result Body Mass Index 31.4 Appearance: Alert. Oriented X3. No acute distress. ENT: Pharynx normal. Oral Mucosa moist localized swelling of the lower lip uvula normal tongue normal, no stridor Neck: Normal inspection. Neck supple. CVS: Normal heart rate and rhythm. Pulses normal. Respiratory: No respiratory distress. Equal air entry bilateral, no wheezing/rales/rhonchi Abdomen: Soft and nontender. Bowel sounds are present, Skin: Skin warm and dry. Normal skin color. Normal skin turgor. Neuro: Oriented X 3. No motor deficit. Medications Administered Discontinued Medications Generic Name Dose Route Start Last Admin Trade Name Freq PRN Reason Stop Dose Admin Dexamethasone 10 mg 06/11/23 22:19 06/11/23 22:25 Dexamethasone 2 Mg Tablet PO 06/11/23 22:20 10 mg ONCE ONE Administration Diphenhydramine HCl 50 mg 06/11/23 22:19 06/11/23 22:25 Diphenhydramine Hcl 25 Mg Capsule PO 06/11/23 22:20 50 mg ONCE ONE Administration Famotidine 20 mg 06/11/23 22:20 06/11/23 22:25 Famotidine 20 Mg Tablet PO 06/11/23 22:21 20 mg ONCE ONE Administration Medical Decision Making Medical Decision Making MDM Narrative: Patient with localized allergic reaction not on CRUZ inhibitor likely from popcorn/salt. Unlikely from Zithromax. Will give her Decadron and Benadryl and Pepcid Patient felt better during stay in the ER no further progression of the angioedema/allergic rash discharge patient home on Benadryl Discharge Plan Discharge Clinical Impression: Allergic reaction, Lip swelling Patient Disposition: Home, Self-Care Instructions: General Allergic Reaction (ED) Additional Instructions: Likely allergic to salt/popcorn which you had earlier Take Benadryl 1-2 tablets every 6 hours as needed Swelling should get better in a day or so Report to the ER if worsening of the swelling or swelling of the tongue or difficulty in swallowing Prescriptions: No Action azithromycin 250 mg tablet See Rx Instructions PO .COMPLEX Qty: 6 0RF Rx Instructions: For 250 mg dose pack: take 500 mg today (day 1), then 250 mg for 4 days (days 2-5) epinephrine 0.3 mg/0.3 mL auto-injector 0.3 mg IM Q10M PRN (Reason: anaphylaxis) Qty: 2 0RF Rx Instructions: for 2 doses epinephrine [EpiPen 2-Reg] 0.3 mg/0.3 mL auto-injector 0.3 mg IM Q4H PRN (Reason: anaphylaxis) Qty: 2 3RF omeprazole 20 mg capsule,delayed release(DR/EC) 20 mg PO BID escitalopram oxalate [Lexapro] 20 mg tablet 20 mg PO DAILY triamcinolone acetonide 0.1 % cream 1 appl topical BID-TID atorvastatin 10 mg tablet 10 mg PO DAILY lorazepam 1 mg tablet 1 mg PO BID levothyroxine 25 mcg tablet 25 mcg PO DAILY epinephrine 0.3 mg/0.3 mL auto-injector 0.3 mg IM Q4H PRN (Reason: anaphylaxis) Qty: 2 0RF azithromycin 500 mg tablet 500 mg PO DAILY 3 Days Qty: 3 0RF azelastine 137 mcg (0.1 %) aerosol,spray intranasal prednisone 20 mg tablet 60 mg PO DAILY Qty: 9 0RF Interventions: ED Discharge Assessment Last Done: 06/12/23 00:18 Discharge Date/Time: 06/12/23 00:18
[2023-06-11] MEDS: diphenhydrAMINE HCL 25 MG CAPSULE 50 MG PO (22:25)
[2023-06-11] MEDS: dexAMETHasone 2 MG TABLET 10 MG PO (22:25)
[2023-06-11] MEDS: Famotidine 20 MG TABLET PO (22:25)
--- NOTE | 2023-06-11 22:34 | PC.NURSE ---
this rn assumed care of pt. pt reports taking z-pack for 3 days and reports after dose this morning she developed lower lip swelling an hour ago. pt talking in full clear sentences, lung sounds clear bilaterally, throat patent. pt denies n/v/d and chest pain. denies rash at this time. pt normal sinus on tele 80-83.
--- NOTE | 2023-06-11 23:26 | PC.NURSE ---
pt resting in stretcher, no acute distress noted. pt lower lip noted to be swollen, denies SOB. lung sounds clear bilaterally.
[2023-06-11 23:57] VITALS: BP 118/70; PULSE 76; RESP 12; TEMP 36.6; O2SAT 97
== END 2023-06-12 00:18 | disposition home or self-care (01) ==
PROVIDERS: Emergency Provider Internal Medicine
DX: L50.0 Allergic urticaria (principal); R94.31 Abnormal electrocardiogram [ECG] [EKG]
CPT/HCPCS: 93005; 99283; 99285; J8540

== ENCOUNTER → 2023-06-11 22:11 | Outpatient (BNV) | payer OTHER, MEDICAID, SELFPAY | PROVIDERS: Emergency Provider Internal Medicine; Visit Provider Internal Medicine | DX: Z88.1 Allergy status to other antibiotic agents (principal) | CPT/HCPCS: 93010 ==

== ENCOUNTER 2023-06-28 02:48 | Emergency (ER) | payer OTHER, MEDICAID, SELFPAY ==
[2023-06-28 03:03] VITALS: BP 139/81; PULSE 97; RESP 18; TEMP 36.2; O2SAT 96; BMI 26.8
[2023-06-28 06:23] VITALS: BP 144/75; PULSE 99; RESP 14; TEMP 37.2; O2SAT 99
[2023-06-28 07:11] VITALS: BP 151/64; RESP 18; O2SAT 97
--- NOTE | 2023-06-28 07:28 | ED.ALLEREA ---
HPI - Allergic Reaction General Chief complaint: Allergic Reaction Stated complaint: allergic reaction Time Seen by Provider: 06/28/23 06:58 History of Present Illness HPI narrative: Patient is a 57-year-old has a history of allergic reaction to unknown substance. Patient complaining of itchy skin some rashes over the body. Took some Benadryl without any relief. Patient is from home. There is no difficulty in voice. There has no difficulty in breathing. There has no lesion inside her mouth. Had a history of something similar. The last time was about a month ago. Patient has an appointment to see an concrete pointer in 6 months. He is trying to move that up. No fever no chills no systemic complaints Related Data Home Medications Medication Instructions Recorded Confirmed atorvastatin 10 mg tablet 10 mg PO DAILY 02/07/23 05/29/23 escitalopram oxalate 20 mg tablet 20 mg PO DAILY 02/07/23 05/29/23 (Lexapro) levothyroxine 25 mcg tablet 25 mcg PO DAILY 02/07/23 05/29/23 lorazepam 1 mg tablet 1 mg PO BID 02/07/23 05/29/23 omeprazole 20 mg capsule,delayed 20 mg PO BID 02/07/23 05/29/23 release triamcinolone acetonide 0.1 % 1 appl topical BID-TID 02/07/23 05/29/23 topical cream azelastine 137 mcg (0.1 %) nasal intranasal 05/29/23 05/29/23 spray aerosol Previous Rx's Medication Instructions Recorded epinephrine 0.3 mg/0.3 mL 0.3 mg (0.3 mL) IM Q4H PRN 02/07/23 injection, auto-injector anaphylaxis #2 ea epinephrine 0.3 mg/0.3 mL 0.3 mg (0.3 mL) IM Q4H PRN 04/14/23 injection, auto-injector (EpiPen anaphylaxis #2 ea 2-Reg) azithromycin 500 mg tablet 500 mg PO DAILY 3 days #3 tabs 05/03/23 prednisone 20 mg tablet 60 mg (3 x 20 mg) PO DAILY #9 tabs 05/29/23 azithromycin 250 mg tablet See Rx Instructions PO .COMPLEX #6 06/10/23 tabs epinephrine 0.3 mg/0.3 mL 0.3 mg (0.3 mL) IM Q10M PRN 06/10/23 injection, auto-injector anaphylaxis #2 ea famotidine 20 mg tablet (Pepcid) 20 mg PO BID 5 days #10 tabs 06/28/23 prednisone 20 mg tablet 40 mg (2 x 20 mg) PO DAILY #10 tabs 06/28/23 Allergies Allergy/AdvReac Type Severity Reaction Status Date / Time zinc acetate Allergy Mild Hives Verified 06/11/23 22:01 [From Banophen Anti-Itch] Sulfa (Sulfonamide Allergy Unknown headache Verified 06/11/23 22:01 Antibiotics) amoxicillin Allergy Swelling Verified 06/11/23 22:01 topiramate AdvReac Unknown confusion Verified 06/11/23 22:01 Review of Systems Review of Systems: Positive rash Yes all other systems are reviewed and are negative [facility] Past Medical History Attestation statement: The following information was validated with the patient. Medical History Allergies Sinusitis Depression Social History Social History Alcohol intake: never Patient Tobacco Use Status: Never used Tobacco Smoked in Last 30 Days: No Use of substances other than those prescribed or required for medical reasons: No Advance Directives: No Advance Directives Information Provided: No Physical Exam ED Vital Signs: Vital Signs - 24 hr 06/28/23 03:03 06/28/23 06:23 06/28/23 07:11 Temperature 97.1 F 99.0 F Pulse Rate 97 99 Respiratory Rate 18 14 18 Blood Pressure 139/81 144/75 H 151/64 H Pulse Oximetry 96 99 97 Oxygen Delivery Method Room Air Room Air Room Air BMI result Body Mass Index 26.8 Appearance: Alert. Oriented X3. No acute distress. Eyes: Pupils equal, round and reactive to light. ENT: Pharynx normal. Neck: Normal inspection. Neck supple. No lymph nodes noted. No crepitus CVS: Normal heart rate and rhythm. Pulses normal. Normal S1 and S2 Respiratory: No respiratory distress. Breath sounds normal. No Wheezing. No rales Abdomen: Soft and nontender. No rigidity. No distention. good BS x4 Skin: Skin warm and dry. Normal skin color. Normal skin turgor. Positive red irregularly bordered slightly raised blanching rash over the legs and abdomen. Pruritic Extremities: No lower extremity edema. Neurovascular intact to all extremities. No Lacerations. No Rash Neuro: Oriented X 3. No motor deficit. No sensory deficit. Moving all extermities. No slurred speech Medical Decision Making Medical Decision Making MDM Narrative: Question allergic reaction. Patient already took Benadryl with only moderate relief. We will go ahead and give patient some steroids. Pepcid close follow-up on an outpatient basis there is no respiratory distress. Patient's lungs are clear. Vital signs are normal. Will discharge patient home close follow-up on an outpatient basis. Patient has been seen multiple times for allergic reaction. Differential Diagnosis Differential Diagnoses: The differential diagnosis associated with the presentation includes Allergic reaction, anaphylaxis, [place] Admission/Observation Consideration of admission/observation: Escalation of care including admission/observation considered Discharge Plan Discharge Clinical Impression: Allergic reaction Patient Disposition: Home, Self-Care Instructions: General Allergic Reaction (ED) Prescriptions: New prednisone 20 mg tablet 40 mg PO DAILY Qty: 10 0RF famotidine [Pepcid] 20 mg tablet 20 mg PO BID 5 Days Qty: 10 0RF No Action azithromycin 250 mg tablet See Rx Instructions PO .COMPLEX Qty: 6 0RF Rx Instructions: For 250 mg dose pack: take 500 mg today (day 1), then 250 mg for 4 days (days 2-5) epinephrine 0.3 mg/0.3 mL auto-injector 0.3 mg IM Q10M PRN (Reason: anaphylaxis) Qty: 2 0RF Rx Instructions: for 2 doses epinephrine [EpiPen 2-Reg] 0.3 mg/0.3 mL auto-injector 0.3 mg IM Q4H PRN (Reason: anaphylaxis) Qty: 2 3RF omeprazole 20 mg capsule,delayed release(DR/EC) 20 mg PO BID escitalopram oxalate [Lexapro] 20 mg tablet 20 mg PO DAILY triamcinolone acetonide 0.1 % cream 1 appl topical BID-TID atorvastatin 10 mg tablet 10 mg PO DAILY lorazepam 1 mg tablet 1 mg PO BID levothyroxine 25 mcg tablet 25 mcg PO DAILY epinephrine 0.3 mg/0.3 mL auto-injector 0.3 mg IM Q4H PRN (Reason: anaphylaxis) Qty: 2 0RF azithromycin 500 mg tablet 500 mg PO DAILY 3 Days Qty: 3 0RF azelastine 137 mcg (0.1 %) aerosol,spray intranasal prednisone 20 mg tablet 60 mg PO DAILY Qty: 9 0RF Referrals: Physician,Unknown J [Primary Care Provider] - (Please follow-up with your concrete pointer within a week)
[2023-06-28 08:02] VITALS: BP 151/64; PULSE 99; RESP 18; TEMP 37.1; O2SAT 98
== END 2023-06-28 08:03 | disposition home or self-care (01) ==
PROVIDERS: Emergency Provider Emergency Medicine Emergency Medical Services
DX: T78.40XA Allergy, unspecified, initial encounter (principal); X58.XXXA Exposure to other specified factors, initial encounter
CPT/HCPCS: 99283; 99284

== ENCOUNTER 2023-09-16 08:12 | Outpatient (AMB) | payer MEDICARE, MEDICAID, SELFPAY ==
[2023-09-16 08:51] VITALS: BP 112/70; PULSE 89; TEMP 36.2; O2SAT 98; BMI 26.8
--- NOTE | 2023-09-16 08:51 | AM.OFFWIN_ITS ---
Intake Vital Signs 09/16/23 08:51 Height 5 ft 4 in Weight 70.76 kg BMI 26.8 BP 112/70 Blood Pressure Location Lt brachial Position Sitting Pulse 89 Pulse Source Pulse Oximeter Temp 97.2 F Temp Source Temporal Artery Scan Pulse Oximetry (%) 98 Oxygen Delivery Method Room Air Intake Visit Reasons: EP allergic reaction Intake Note: pt is here today for allergic reaction started saturday Patient Tobacco Use Status: Never used Tobacco Allergies zinc acetate [From Banophen Anti-Itch] Allergy (Mild, Verified 09/16/23 08:55) Hives Sulfa (Sulfonamide Antibiotics) Allergy (Unknown, Verified 09/16/23 08:55) headache amoxicillin Allergy (Verified 09/16/23 08:55) Swelling topiramate Adverse Reaction (Unknown, Verified 09/16/23 08:55) confusion Do you need a note to return to daycare/school/sports/work: No HPI EP allergic reaction HPI Details Patient presents with 4 days of hives mostly on her lower extremity but also some on the trunk. She notes she has been to an flight agent and is known to break out in hives at times from exposure to chlorine and swimming pools, a llergies are also heightened during pollen season for her. She has been using Xyzal Q 24 hours with minimal relief. She went in and exercise pool twice last week. Denies shortness of breath or difficulty breathing. [facility] Medical History Allergies Sinusitis Depression Social History Alcohol intake: never Patient Tobacco Use Status: Never used Tobacco Review of Systems Const Reports no additional complaints Eyes Reports no additional complaints ENT Reports as per HPI Card Reports no additional complaints Resp Reports as per HPI and Reports no additional complaints GI Reports no additional complaints Skin/Breast Reports as per HPI Physical Exam Vital Signs: Last Vital Signs Temp 97.2 F 09/16/23 08:51 Pulse 89 09/16/23 08:51 BP 112/70 09/16/23 08:51 Pulse Ox 98 09/16/23 08:51 Oxygen Delivery Method Room Air 09/16/23 08:51 BMI result Body Mass Index 26.8 Const General: cooperative, comfortable and no acute distress Orientation/consciousness: patient oriented x3 HEENT General nose exam: Normal external nose present Face and sinus: Yes normal facial exam Mouth: Normal oral and palatal mucosa present Throat: Yes posterior oropharynx normal Resp Effort & Inspection: normal respiratory effort Auscultation: clear to auscultation bilaterally Cardio Rate: regular rate Rhythm: regular rhythm Heart sounds: S1 normal heart sound present and S2 normal heart sound present Skin General skin exam: turgor normal Rashes: rashes noted (Urticaria noted also concentrated on lower extremities, thighs with scatter) Neuro General: patient oriented x3 Assessment & Plan Assessment & Plan (1) Hives: Code(s): L50.9 - Urticaria, unspecified Plan: Patient advised to avoid contact with coordinated pools. We will start a 10 day prednisone taper 50 mg to 10 mg over 10 days. ER if worsening symptoms tongue lip or mouth swelling or wheezing or shortness of occur. Follow-up with flight agent as planned. Medications: New prednisone 5 pills day 1 and 2, 4 pills day 3 and 4, 3 pills day 5 and 6, 2 pills day 7 and 8, 1 pill day 9 and 10 10 mg PO DIRECTED 30 tabs 0RF Coding Level of Care Code Est Pt Level 3 (76510) Diagnoses Hives L50.9
== END 2023-09-16 09:26 | disposition home or self-care (01) ==
PROVIDERS: Visit Provider Physician Assistant
DX: L50.9 Urticaria, unspecified (principal)
CPT/HCPCS: 99213

== ENCOUNTER 2023-10-10 10:15 | Outpatient (AMB) | payer MEDICARE, MEDICAID, SELFPAY ==
--- NOTE | 2023-10-10 10:19 | AM.OFFWIN_ITS ---
Intake Vital Signs 10/10/23 10:22 Height 5 ft 4 in Weight 156 lb BMI 26.8 BP 126/74 Blood Pressure Location Lt brachial Position Sitting Pulse 86 Pulse Source Pulse Oximeter Temp 98.1 F Temp Source Oral Pulse Oximetry (%) 98 Intake Visit Reasons: EP allergic reaction rash legs from lubriderm Intake Note: pt is here for allergic reaction to rash on legs Patient Tobacco Use Status: Never used Tobacco Allergies zinc acetate [From Banophen Anti-Itch] Allergy (Mild, Verified 10/10/23 10:22) Hives Sulfa (Sulfonamide Antibiotics) Allergy (Unknown, Verified 10/10/23 10:22) headache amoxicillin Allergy (Verified 10/10/23 10:22) Swelling topiramate Adverse Reaction (Unknown, Verified 10/10/23 10:22) confusion Do you need a note to return to daycare/school/sports/work: No HPI HPI Comments History of Present Illness Details Pateint is a 58 year old female complaining of breaking out an itchy h hector on both of her legs that she believes is from Lubriderm lotion. She states this started 4 days ago. She denies any fevers. She states she does have an appointment with an business initiatives manager in early October because she seems to be allergic to a lot of creams and lotions. She states this has happened before where she applies a new cream to her body and she ends up breaking out in hives. She states she just moved here from [place] and she is having issues with allergic reactions to environmental. She states she has tried steroid creams in the past and they do not work, she states the only thing that will help is oral prednisone [facility] Medical History Allergies Sinusitis Depression Social History Alcohol intake: never Patient Tobacco Use Status: Never used Tobacco Review of Systems Const All systems reviewed & are unremarkable except as noted in HPI and below Physical Exam Vital Signs: Last Vital Signs Temp 98.1 F 10/10/23 10:22 Pulse 86 10/10/23 10:22 BP 126/74 10/10/23 10:22 Pulse Ox 98 10/10/23 10:22 BMI result Body Mass Index 26.8 Const General: cooperative, healthy appearing, comfortable, no acute distress and well developed Orientation/consciousness: patient oriented x3 Limitations: no limitations Eyes General: appearance normal, both eyes and all related structures Resp Effort & Inspection: normal respiratory effort and able to speak in complete sentences Skin Other: 4-5 areas of 1cm circular erythema that is raised on posterior right lower extremity, 3 more similar circular raised erythematous areas on right thigh Neuro General: patient oriented x3 Assessment & Plan Assessment & Plan (1) Allergic dermatitis: Code(s): L23.9 - Allergic contact dermatitis, unspecified cause Plan: Sent prednisone taper to pharmacy for patient advised to make sure she follows up with her business initiatives manager, as scheduled. We did discuss the risks and benefits of prednisone. Patient understands and agrees with plan. Plan See above Medications: New prednisone On days 1&2, take 3 tablets with breakfast. On days 3&4 take 2 tablets with breakfast, on days 5&6 take 1.5 tablets with breakfast, on days 7&8 take 1 tablet with breakfast, on days 9&10 take 0.5 tablet with breakfast. 20 mg PO DAILY 16 tabs 0RF Coding Level of Care Code Est Pt Level 3 (63967) Diagnoses Allergic dermatitis L23.9
[2023-10-10 10:22] VITALS: BP 126/74; PULSE 86; TEMP 36.7; O2SAT 98; BMI 26.8
== END 2023-10-10 11:45 | disposition home or self-care (01) ==
PROVIDERS: Visit Provider Physician Assistant
DX: L23.9 Allergic contact dermatitis, unspecified cause (principal)
CPT/HCPCS: 99213

== ENCOUNTER 2023-11-09 14:31 | Outpatient (AMB) | payer MEDICARE, MEDICAID, SELFPAY ==
[2023-11-09 14:31] VITALS: BP 138/82; PULSE 86; TEMP 36.8; O2SAT 98
--- NOTE | 2023-11-09 14:31 | AM.OFFWIN_ITS ---
Intake Vital Signs 11/09/23 14:31 Height 5 ft 4 in BP 138/82 Blood Pressure Location Rt brachial Position Sitting Pulse 86 Pulse Source Pulse Oximeter Temp 98.2 F Temp Source Temporal Artery Scan Pulse Oximetry (%) 98 Intake Visit Reasons: EP/ Allergic reaction Intake Note: pt is here for allergic reaction on legs Patient Tobacco Use Status: Never used Tobacco Allergies zinc acetate [From Banophen Anti-Itch] Allergy (Mild, Verified 11/09/23 14:50) Hives Sulfa (Sulfonamide Antibiotics) Allergy (Unknown, Verified 11/09/23 14:50) headache amoxicillin Allergy (Verified 11/09/23 14:50) Swelling topiramate Adverse Reaction (Unknown, Verified 11/09/23 14:50) confusion Medication List - Last Reconciled 11/09/23 by Joanna Altamirano, MIXED SIGNAL DESIGN ENGINEER- atorvastatin 10 mg PO DAILY azelastine intranasal epinephrine 0.3 mg (0.3 mL) IM Q10M PRN escitalopram oxalate (Lexapro) 20 mg PO DAILY famotidine (Pepcid) 20 mg PO BID 5 days levothyroxine 25 mcg PO DAILY lorazepam 1 mg PO BID omeprazole 20 mg PO BID triamcinolone acetonide 0.1% 1 appl topical BID-TID Do you need a note to return to daycare/school/sports/work: No HPI HPI Comments History of Present Illness Details 58-year-old female here today for recurr ent dermatitis. She reports multiple allergies and sensitivities. Has been seen at the walk-in several times for the same. She was recently evaluated by an supervisor fruit grading who advised her to refrain from using any products that are highly scented. Unfortunately she use [place] fabric softener and her laundry and then developed hives. The hives are on the inside of her right thigh and on her left waist. They started yesterday. Time spent reviewing the last 2 urgent care visit notes. Exam Awake alert oriented Speaking in full sentences Urticaria on the inside of right thigh, left waist Plan States that she can not tolerate topical steroid cream. States that she responds very well to prednisone taper. I have sent this in. Advised for her to follow up with her primary care and discuss a referral to a senior javascript engineer. She thinks that this would be a good idea. Advised to avoid known irritants. This note is constructed using voice recognition software. While every effort has been made to ensure accuracy in director of transportation, still errors may have been included Sometimes, these errors may affect the content or meaning of the given sentence . PFSH Medical History Allergies Sinusitis Depression Social History Alcohol intake: never Patient Tobacco Use Status: Never used Tobacco Assessment & Plan Assessment & Plan (1) Allergic dermatitis: Code(s): L23.9 - Allergic contact dermatitis, unspecified cause Plan: . Medications: New prednisone 5 tabs x 2 days, 4 tabs x 2 days, 3 tabs x 2 days, 2 tabs x 2 days, 1 tab x 2 days and then STOP. 10 mg PO DIRECTED 10 days 30 tabs 0RF Coding Level of Care Code Est Pt Level 4 (48040) Diagnoses Allergic dermatitis L23.9
== END 2023-11-09 14:47 | disposition home or self-care (01) ==
LOC: HO.HMGWI 14:31
DX: L23.9 Allergic contact dermatitis, unspecified cause (principal)
CPT/HCPCS: 99051; 99214

== ENCOUNTER 2023-12-09 09:40 | Outpatient (AMB) | payer MEDICARE, MEDICAID, SELFPAY ==
--- NOTE | 2023-12-09 09:51 | AM.OFFWIN_ITS ---
Intake Vital Signs 12/09/23 09:53 Height 5 ft 4 in Weight 160 lb BMI 27.5 BP 126/84 Blood Pressure Location Lt brachial Position Sitting Pulse 75 Pulse Source Pulse Oximeter Temp 98.1 F Temp Source Oral Pulse Oximetry (%) 98 Oxygen Delivery Method Room Air Intake Visit Reasons: EP allergy, hives on behind/legs Intake Note: pt c/o of hives on legs and buttocks. Started last night after using new soap Patient Tobacco Use Status: Never used Tobacco Allergies zinc acetate [From Banophen Anti-Itch] Allergy (Mild, Verified 12/09/23 09:52) Hives Sulfa (Sulfonamide Antibiotics) Allergy (Unknown, Verified 12/09/23 09:52) headache amoxicillin Allergy (Verified 12/09/23 09:52) Swelling topiramate Adverse Reaction (Unknown, Verified 12/09/23 09:52) confusion Olay Soap Allergy (Intermediate, Uncoded 12/09/23 09:57) Hives Do you need a note to return to daycare/school/sports/work: No HPI HPI Comments History of Present Illness Details Patient is a 58-year-old female complaining of hives and itchiness on her legs and buttocks and arms after using a new soap yesterday. She states she went to a audiovisual tech who told her she has a lot of skin he has and she needs to be very careful when she changes soaps. She bought a new soap and tried it and ended up breaking out with this itchy rash. She states this has happened several times before and she always needs prednisone to clear it up. She states she took a Benadryl and it only helped for about an hour or 2. She denies any trouble breathing or shortness of breath or tingling in the back of her throat [facility] Medical History Allergies Sinusitis Depression Social History Alcohol intake: never Patient Tobacco Use Status: Never used Tobacco Review of Systems Const All systems reviewed & are unremarkable except as noted in HPI and below Physical Exam Vital Signs: Last Vital Signs Temp 98.1 F 12/09/23 09:53 Pulse 75 12/09/23 09:53 BP 126/84 12/09/23 09:53 Pulse Ox 98 12/09/23 09:53 Oxygen Delivery Method Room Air 12/09/23 09:53 BMI result Body Mass Index 27.5 Const General: cooperative, healthy appearing, comfortable, no acute distress and well developed Orientation/consciousness: patient oriented x3 Limitations: no limitations Eyes General: appearance normal, both eyes and all related structures Resp Effort & Inspection: normal respiratory effort and able to speak in complete sentences Skin Other: Patches of erythematous, slightly raised hives on her bilateral buttocks, upper bilateral thighs and bilateral forearms. No signs of infection noted Neuro General: patient oriented x3 Assessment & Plan Assessment & Plan (1) Allergic dermatitis: Code(s): L23.9 - Allergic contact dermatitis, unspecified cause Plan: As patient requested, I have sent prednisone to her pharmacy for a 5 day burst along with hydroxyzine to help with the itching. Recommended she try using a soap without many additives, and when she adds a new soap, to only use it in a small area to see how her skin reacts before she uses it on her whole body. Plan See above Medications: New hydroxyzine HCl 10 mg PO Q6-8H PRN 20 tabs 0RF itching prednisone 20 mg PO DAILY 10 tabs 0RF Coding Level of Care Code New Pt Level 3 (86673) Diagnoses Allergic dermatitis L23.9
[2023-12-09 09:53] VITALS: BP 126/84; PULSE 75; TEMP 36.7; O2SAT 98; BMI 27.5
== END 2023-12-09 10:37 | disposition home or self-care (01) ==
PROVIDERS: Visit Provider Physician Assistant
DX: L23.9 Allergic contact dermatitis, unspecified cause (principal)
CPT/HCPCS: 99213

== ENCOUNTER 2024-01-08 13:14 | Outpatient (AMB) | payer MEDICARE, MEDICAID, SELFPAY ==
--- NOTE | 2024-01-08 13:19 | MHC.OFFWIV ---
Intake Vital Signs 01/08/24 13:20 Height 5 ft 4 in Weight 160 lb BMI 27.5 BP 116/80 Blood Pressure Location Lt brachial Position Sitting Pulse 90 Pulse Source Pulse Oximeter Temp 98.4 F Temp Source Oral Pulse Oximetry (%) 98 Oxygen Delivery Method Room Air Intake Visit Reasons: EP allergic reaction Intake Note: pt c/o allergic reaction (Hives) to a new nail [place] islander. Started 4 days ago. Improves w/ Benadryl and returns Patient Tobacco Use Status: Never used Tobacco Allergies zinc acetate [From Banophen Anti-Itch] Allergy (Mild, Verified 01/08/24 13:32) Hives Sulfa (Sulfonamide Antibiotics) Allergy (Unknown, Verified 01/08/24 13:32) headache amoxicillin Allergy (Verified 01/08/24 13:32) Swelling topiramate Adverse Reaction (Unknown, Verified 01/08/24 13:32) confusion Olay Soap Allergy (Intermediate, Uncoded 01/08/24 13:32) Hives Do you need a note to return to daycare/school/sports/work: No HPI EP allergic reaction HPI Details This note is constructed using voice recognition software. While every effort has been made to ensure accuracy, completions manager errors may have been included. The patient is a 58 year old female who presents to the clinic today with rash to her groin onset Saturday. She notes reported hives one day after having a new nail Spanish applied at the big enough. She denies pain to the, but does note that the area is worsened when she experiences heat, particularly sweat which she sweats quite a bit in that area. She notes that the area is somewhat raised, but flat, pink, and then after some time it seems to go away. She takes Benadryl every day since the onset but it does not seem to be making it go away completely. [facility] Medical History Allergies Sinusitis Depression Social History Alcohol intake: never Patient Tobacco Use Status: Never used Tobacco Review of Systems Const All systems reviewed & are unremarkable except as noted in HPI and below Physical Exam Vital Signs: Last Vital Signs Temp 98.4 F 01/08/24 13:20 Pulse 90 01/08/24 13:20 BP 116/80 01/08/24 13:20 Pulse Ox 98 01/08/24 13:20 Oxygen Delivery Method Room Air 01/08/24 13:20 BMI result Body Mass Index 27.5 Const General: cooperative, healthy appearing, comfortable, no acute distress and well developed Orientation/consciousness: patient oriented x3 Limitations: no limitations Resp Effort & Inspection: normal respiratory effort and able to speak in complete sentences Skin Other: Slightly raised salmon-colored plaques to bilateral groin area. No erythema, warmth, discharge. Neuro General: patient oriented x3 Assessment & Plan Assessment & Plan (1) Tinea versicolor: Code(s): B36.0 - Pityriasis versicolor Plan: Advised use of selsun blue applied to rash three times per week in combination with ketoconazole. She may continue to use benadryl to help with itch. I advised her to avoid the new [place] islander for now, until symptoms have subsided, and then reintroduce this watching for any return of symptoms. Plan See above for full details and plan. Medications: New ketoconazole 2% Apply daily for one to three weeks to rash 1 appl topical DAILY 30 grams 0RF Coding Level of Care Code Est Pt Level 3 (80386) Diagnoses Tinea versicolor B36.0
[2024-01-08 13:20] VITALS: BP 116/80; PULSE 90; TEMP 36.9; O2SAT 98; BMI 27.5
== END 2024-01-08 14:52 | disposition home or self-care (01) ==
PROVIDERS: Visit Provider Registered Nurse
DX: B36.0 Pityriasis versicolor (principal)

== ENCOUNTER → 2024-01-08 13:14 | Outpatient (BNVA) | payer MEDICARE, MEDICAID, SELFPAY | DX: B36.0 Pityriasis versicolor (principal) | CPT/HCPCS: 99212 ==

== ENCOUNTER 2024-02-11 10:03 | Outpatient (AMB) | payer MEDICARE, MEDICAID, SELFPAY ==
[2024-02-11 10:07] VITALS: BP 142/80; PULSE 76; TEMP 37; O2SAT 98; BMI 27.5
--- NOTE | 2024-02-11 10:07 | MHC.OFFWIV ---
Intake Vital Signs 02/11/24 10:07 Height 5 ft 4 in Weight 160 lb BMI 27.5 BP 142/80 H Blood Pressure Location Rt brachial Position Sitting Pulse 76 Pulse Source Pulse Oximeter Temp 98.6 F Temp Source Oral Pulse Oximetry (%) 98 Intake Visit Reasons: EP Allergic reaction Intake Note: pt is here for c/o allergic reaction to cream from OTC Patient Tobacco Use Status: Never used Tobacco Allergies zinc acetate [From Banophen Anti-Itch] Allergy (Mild, Verified 02/11/24 10:08) Hives Sulfa (Sulfonamide Antibiotics) Allergy (Unknown, Verified 02/11/24 10:08) headache amoxicillin Allergy (Verified 02/11/24 10:08) Swelling topiramate Adverse Reaction (Unknown, Verified 02/11/24 10:08) confusion Olay Soap Allergy (Intermediate, Uncoded 01/08/24 13:32) Hives Do you need a note to return to daycare/school/sports/work: No HPI HPI Comments History of Present Illness Details Patient is a 58-year-old female complaining of an itchy rash all over her legs that has continued for the last 2 weeks. She tells me that 2 weeks ago, she used a cream that she had at home and she did not know she was allergic to it. She tells me she has been using Benadryl every day to try to get rid of the rash but it is just making her tired in the rash is still itchy and present. She tells me that 3 days ago, her eyes got swollen and her lips got swollen so she gave herself her EpiPen but did not want to go to the emergency room. She denies any shortness of breath, trouble be breathing, tickle in the back of her throat or feeling like her throat is closing up today. She tells me she tried to refill the EpiPen but the pharmacy would not do it because it was ?too soon? and she is asking for a new prescription. [facility] Medical History Allergies Sinusitis Depression Social History Alcohol intake: never Patient Tobacco Use Status: Never used Tobacco Review of Systems Const All systems reviewed & are unremarkable except as noted in HPI and below Physical Exam Vital Signs: Last Vital Signs Temp 98.6 F 02/11/24 10:07 Pulse 76 02/11/24 10:07 BP 142/80 H 02/11/24 10:07 Pulse Ox 98 02/11/24 10:07 BMI result Body Mass Index 27.5 Const General: cooperative, healthy appearing, comfortable, no acute distress and well developed Orientation/consciousness: patient oriented x3 Limitations: no limitations HEENT Head: Yes normal to inspection Ears: hearing grossly normal bilaterally General nose exam: Normal external nose present Face and sinus: Yes normal facial exam Eyes General: appearance normal, both eyes and all related structures Neck Neck: Yes normal visual inspection and Yes full ROM Resp Effort & Inspection: normal respiratory effort and able to speak in complete sentences Auscultation: clear to auscultation bilaterally Cardio Rate: regular rate Rhythm: regular rhythm Heart sounds: normal S1 and S2 Skin Other: raised round pink rash on bilateral lower extremities, no warmth, no signs of infection noted, no ecchymosis Neuro General: patient oriented x3 Extrem General: Yes normal to inspection Assessment & Plan Assessment & Plan (1) Allergic reaction: Code(s): T78.40XA - Allergy, unspecified, initial encounter Qualifiers: Encounter type: initial encounter Qualified Code(s): T78.40XA - Allergy, unspecified, initial encounter Plan: Vital signs are stable, patient well-appearing and lung sounds are clear, she has no angioedema or other signs of anaphylaxis. We will start her on a prednisone taper (patient asking to start with 60mg daily) and hydroxyzine. Sent a refill on her EpiPen, as requested. Plan see above Medications: New prednisone On days 1&2, take 3 tablets with breakfast. On days 3&4 take 2 tablets with breakfast, on days 5&6 take 1.5 tablets with breakfast, on days 7&8 take 1 tablet with breakfast, on days 9&10 take 0.5 tablet with breakfast. 20 mg PO DAILY 16 tabs 0RF Refilled hydroxyzine HCl 10 mg PO Q6-8H PRN 20 tabs 0RF itching epinephrine for 2 doses 0.3 mg (0.3 mL) IM Q10M PRN 2 ea 0RF anaphylaxis Coding Level of Care Code New Pt Level 4 (42222) Diagnoses Allergic reaction, initial encounter T78.40XA Encounter type: initial encounter
== END 2024-02-11 10:58 | disposition home or self-care (01) ==
PROVIDERS: Visit Provider Physician Assistant
DX: T78.40XA Allergy, unspecified, initial encounter (principal)

== ENCOUNTER → 2024-02-11 10:03 | Outpatient (BNVA) | payer MEDICARE, MEDICAID, SELFPAY | PROVIDERS: Visit Provider Physician Assistant | DX: T78.40XA Allergy, unspecified, initial encounter (principal) | CPT/HCPCS: 99202 ==

== ENCOUNTER 2024-03-26 11:01 | Outpatient (AMB) | payer MEDICARE, MEDICAID, SELFPAY ==
--- NOTE | 2024-03-26 11:04 | MHC.OFFWIV ---
Intake Vital Signs 03/26/24 11:16 Height 5 ft 4 in Weight 161 lb BMI 27.6 BP 130/90 H Blood Pressure Location Lt brachial Position Sitting Pulse 85 Pulse Source Pulse Oximeter Pulse Oximetry (%) 98 Oxygen Delivery Method Room Air Intake Visit Reasons: EP-body allergy reaction Intake Note: Patient here for allergic reaction to acrylic that has been present for a couple of days. Patient Tobacco Use Status: Never used Tobacco Allergies zinc acetate [From Banophen Anti-Itch] Allergy (Mild, Verified 03/26/24 11:17) Hives Sulfa (Sulfonamide Antibiotics) Allergy (Unknown, Verified 03/26/24 11:17) headache amoxicillin Allergy (Verified 03/26/24 11:17) Swelling topiramate Adverse Reaction (Unknown, Verified 03/26/24 11:17) confusion Olay Soap Allergy (Intermediate, Uncoded 03/26/24 11:17) Hives Do you need a note to return to daycare/school/sports/work: No HPI EP-body allergy reaction HPI Details This note is constructed using voice recognition software. While every effort has been made to ensure accuracy, phlebotomy program coordinator errors may have been included. The patient is a 58 year old female who presents to the clinic today with concern of allergic reaction on her body after wearing and shirt that had acrylic in it. She notes that she has numerous responses to medications and chemicals, so she tries to avoid new medications when she can. She has been taking Benadryl which seems to help with the itch, as well as Zyrtec to help her allergies. She requests a prescription for prednisone as this has helped with previous rashes. She has been seen multiple times for rashes, and does report that previous symptoms did completely resolve, prior to her putting on the sweater. She denies mild swelling, shortness of breath, difficulty breathing, or any other respiratory symptoms. She reports the rash to be flat, red, and mostly on her torso and upper legs, it is itchy.. [facility] Medical History Allergies Sinusitis Depression Social History Alcohol intake: never Patient Tobacco Use Status: Never used Tobacco Review of Systems Const All systems reviewed & are unremarkable except as noted in HPI and below Physical Exam Vital Signs: Last Vital Signs Pulse 85 03/26/24 11:16 BP 130/90 H 03/26/24 11:16 Pulse Ox 98 03/26/24 11:16 Oxygen Delivery Method Room Air 03/26/24 11:16 BMI result Body Mass Index 27.6 Const General: cooperative, healthy appearing, comfortable, no acute distress and well developed Orientation/consciousness: patient oriented x3 Limitations: no limitations HEENT Head: Yes normal to inspection Ears: hearing grossly normal bilaterally General nose exam: Normal external nose present Face and sinus: Yes normal facial exam Eyes General: appearance normal, both eyes and all related structures Neck Neck: Yes normal visual inspection and Yes full ROM Resp Effort & Inspection: normal respiratory effort and able to speak in complete sentences Auscultation: clear to auscultation bilaterally Cardio Rate: regular rate Rhythm: regular rhythm Heart sounds: normal S1 and S2 Skin Other: Flat, salmon-colored plaques to torso, bilateral upper legs. No erythema, warmth, discharge. Neuro General: patient oriented x3 Assessment & Plan Assessment & Plan (1) Allergic dermatitis: Code(s): L23.9 - Allergic contact dermatitis, unspecified cause Plan: Discussed possible treatment plans, advised patient to continue with the Benadryl and Zyrtec, advised trial Pepcid for antihistamine response, and prescription sent for prednisone for symptomatic management. Advised patient to follow up with her PCP with ongoing or worsening symptoms.. Plan See above for full details and plan. Medications: New prednisone 40 mg (2 x 20 mg) PO DAILY 5 days 10 tabs 0RF Coding Level of Care Code Est Pt Level 3 (03385) Diagnoses Allergic dermatitis L23.9
[2024-03-26 11:16] VITALS: BP 130/90; PULSE 85; O2SAT 98; BMI 27.6
== END 2024-03-26 12:11 | disposition home or self-care (01) ==
PROVIDERS: Visit Provider Registered Nurse
DX: L23.9 Allergic contact dermatitis, unspecified cause (principal)

== ENCOUNTER → 2024-03-26 11:01 | Outpatient (BNVA) | payer MEDICARE, MEDICAID, SELFPAY | PROVIDERS: Visit Provider Registered Nurse | DX: L23.9 Allergic contact dermatitis, unspecified cause (principal) | CPT/HCPCS: 99212 ==

== ENCOUNTER 2024-04-09 10:22 | Outpatient (AMB) | payer MEDICARE, MEDICAID, SELFPAY ==
--- NOTE | 2024-04-09 12:17 | MHC.OFFWIV ---
Intake Vital Signs 04/09/24 12:22 Height 5 ft 4 in Weight 163 lb BMI 28.0 BP 124/80 Blood Pressure Location Rt brachial Position Sitting Pulse 84 Pulse Source Pulse Oximeter Pulse Oximetry (%) 95 Oxygen Delivery Method Room Air Intake Visit Reasons: EP-body rash from a blanket Intake Note: Patient here for rash all over body after using a new blanket. Patient Tobacco Use Status: Never used Tobacco Allergies zinc acetate [From Banophen Anti-Itch] Allergy (Mild, Verified 04/09/24 12:23) Hives Sulfa (Sulfonamide Antibiotics) Allergy (Unknown, Verified 04/09/24 12:23) headache amoxicillin Allergy (Verified 04/09/24 12:23) Swelling topiramate Adverse Reaction (Unknown, Verified 04/09/24 12:23) confusion Olay Soap Allergy (Intermediate, Uncoded 04/09/24 12:23) Hives Do you need a note to return to daycare/school/sports/work: No HPI EP-body rash from a blanket HPI Details This note is constructed using voice recognition software. While every effort has been made to ensure accuracy, outcomes analyst errors may have been included. The patient is a 58 year old female who presents to the clinic today with body rash. Patient reports that for she was kept at a pool the had Roque fur, which she used, she later developed a body wide rash. She has a allergies to many things that she comes into contact with such as cashier associate and acrylic, and she typically gets a similar rash. She developed a rash on her legs, arms, chest, abdomen, it is itchy, but improving since onset. She has not taken anything for it this time, in the past she has taken Benadryl but does not want to take it as she does not want to be sleepy. She requests prescription with prednisone for symptomatic management this that has worked well in the past she denies any new soaps, lotions, detergents, or exposures to anything. [facility] Medical History Allergies Sinusitis Depression Social History Alcohol intake: never Patient Tobacco Use Status: Never used Tobacco Review of Systems Const All systems reviewed & are unremarkable except as noted in HPI and below Physical Exam Vital Signs: Last Vital Signs Pulse 84 12/26/24 12:22 BP 124/80 04/09/24 12:22 Pulse Ox 95 04/09/24 12:22 Oxygen Delivery Method Room Air 04/09/24 12:22 BMI result Body Mass Index 28.0 Const General: cooperative, healthy appearing, comfortable, no acute distress and well developed Orientation/consciousness: patient oriented x3 Limitations: no limitations Neck Neck: Yes normal visual inspection and Yes full ROM Resp Effort & Inspection: normal respiratory effort and able to speak in complete sentences Auscultation: clear to auscultation bilaterally Cardio Rate: regular rate Rhythm: regular rhythm Heart sounds: normal S1 and S2 Skin Other: urticaria present to bilateral arms, legs, chest. Neuro General: patient oriented x3 Assessment & Plan Assessment & Plan (1) Allergic dermatitis: Code(s): L23.9 - Allergic contact dermatitis, unspecified cause Plan: Advised antihistamines, which patient has declined. Discussed avoidance of repeat exposure to the pillow. Prednisone prescription sent for symptomatic management. Plan See above for full details and plan. Medications: New prednisone 40 mg (2 x 20 mg) PO DAILY 5 days 10 tabs 0RF Coding Level of Care Code Est Pt Level 3 (17490) Diagnoses Allergic dermatitis L23.9
[2024-04-09 12:22] VITALS: BP 124/80; PULSE 84; O2SAT 95; BMI 28.0
== END 2024-04-09 14:30 | disposition home or self-care (01) ==
PROVIDERS: Visit Provider Registered Nurse
DX: L23.9 Allergic contact dermatitis, unspecified cause (principal)

== ENCOUNTER → 2024-04-09 10:22 | Outpatient (BNVA) | payer MEDICARE, MEDICAID, SELFPAY | PROVIDERS: Visit Provider Registered Nurse | DX: L23.9 Allergic contact dermatitis, unspecified cause (principal) | CPT/HCPCS: 99212 ==

== ENCOUNTER 2024-05-22 08:00 | Outpatient (REF) | payer MEDICARE, MEDICAID, SELFPAY ==
--- OUTSIDE RECORDS SUMMARY | 2024-05-22 13:37 | XMS_ITS | Encounter Summary ---
Author Organization [facility] Address [address] [place] [address] Care Team Providers Care Link Wire Fabric Machine Tender Name Role Phone Farzana Herring MD Primary Care Provider [phone] Encounter Details Date Type Department Care Team (Latest Contact Info) Description 04/30/2024 11:10 AM EST - 04/30/2024 11:59 PM [facility] Hospital Encounter XRAY - [place] [address] [place] [address] Chronic midline low back pain with bilateral [...] mg capsule Take by mouth. butalbit/acetamin/caff/c odeine (OPKJGOLUAQ-HSNZQCVNXF-M AF-COD ORAL) [id number]- COD OR Take by mouth cetirizine (ZyrTEC) [...] Description 05/25/2024 10:00 AM EST Treatment Outpatient [facility] - [address] [phone] Sangeeta Epstein, LICENSED GUIDE 05/29/2024 10:00 AM EST Treatment Outpatient [facility] - [address] [phone] Sangeeta Epstein, LICENSED GUIDE 06/01/2024 10:00 AM EST Treatment Outpatient [address] [phone] Sangeeta Epstein, LICENSED GUIDE 06/05/2024 10:00 AM EST Treatment Outpatient [address] [phone] Sangeeta Epstein, LICENSED GUIDE 06/08/2024 10:30 AM EST Treatment Outpatient [address] [phone] Jayden Archuleta, PT 10/28/2024 8:30 AM EDT Office Visit Adult Medicine [address] [phone] Farzana Herring MD [address] [place] [address] 02/05/2025 3:00 PM EDT Office Visit Adult Medicine [facility] [place] [address] [facility] [place] [address] Farzana Herring MD [address] [place] documented as of this [...] PM EST Multilevel degenerative changes. POS - [id number] -------- FINAL REPORT -------- Dictated By: Radha Nicholson Dictated Date: 04/30/2024 19:26 ET Assigned Physician: Radha Nicholson Reviewed and Electronically Signed By: Radha Nicholson Signed Date: 04/30/2024 19:31 ET Workstation ID: [id number] Transcribed By: Self Edit Transcribed Date: 04/30/2024 [...] throughL5-S1. IMPRESSION: Multilevel degenerative changes. POS - [id number] -------- FINAL REPORT -------- Dictated By: Radha Nicholson Dictated Date: 04/30/2024 19:26 ET Assigned Physician: Radha Nicholson Reviewed and Electronically Signed By: Radha Nicholson Signed Date: 04/30/2024 19:31 ET Workstation ID: [id number] Transcribed By: Self Edit Transcribed Date: 04/30/2024 19:26 ET Farzana Herring MD IMG XR PROCEDURES documented in this encounter Visit Diagnoses Diagnosis Chronic midline low back pain with bilateral sciatica documented in this encounter Care Teams Link Wire Fabric Machine Tender Relationship Specialty Start Date End Date Farzana Herring MD [address] [place] [address] PCP - General Internal Medicine 04/23/24 documented as of this encounter
--- OUTSIDE RECORDS SUMMARY | 2024-05-22 13:37 | XMS_ITS | Encounter Summary ---
Author Organization [facility] Address [address] [place] [address] Care Team Providers Care Automobile Racer Name Role Phone Farzana Herring MD Primary Care Provider [phone] Reason for Visit * Consultation (Routine) - Authorized Specialty Diagnoses / Procedures Referred By Pablito correa Referred To Contact Physical Therapy Diagnoses Chronic pain of both hips Farzana Herring MD [address] [place] [address] Referral ID Status Reason Start Date Expiration Date Visits Requested Visits Authorized [id number] Authorized Specialty Services Required 04/30/2024 04/30/2025 13 13 Encounter Details Date Type Department Care Team ([facility] Contact Info) Description 05/18/2024 11:00 AM EST Treatment Outpatient Rehabilitation [address] [phone] Sangeeta Epstein PTA Chronic pain of both [...] Epstein PTA - 05/18/2024 11:00 AM EST [facility] - Outpatient PHYSICAL THERAPY DAILY TREATMENT NOTE - OP Date: 05/18/2024 Visit Number: 3 Patient Name: Olivia Jacome : 1965 Age: 58 y.o. Gender: female Diagnosis: ICD-10-CM ICD-9-CM 1. Chronic pain of both hips M25.551 719.45 M25.552 338.29 G89.29 Date of Onset/Surgery: 05/11/2021 Referring Provider: Farzana Herring MD Insurance: Payor: UNITED [employer] MEDICARE / Plan: [address] MEDICARE ADVANTAGE / Product Type: *No Product type* / Patient Identified by: Sangeeta Epstein PTA Language: Hebrew Medications: Current Outpatient Medications on File Prior [...] (Patient not taking: Reported on 04/30/2024) butalbit/acetamin/caff/codeine (WOEYANAHCM-JQRBINSDPX-NIZ-COD ORAL) YSAFUTYWUM-CAVO-APLH-COD OR Take by mouth cetirizine (ZyrTEC) 10 [...] 05/25/2024 10:00 AM EST Treatment Outpatient Rehabilitation [address] [phone] Sangeeta Epstein PTA 05/29/2024 10:00 AM EST Treatment Outpatient Rehabilitation [address] [phone] Sangeeta Epstein PTA 06/01/2024 10:00 AM EST Treatment Outpatient Rehabilitation [address] [phone] Sangeeta Epstein PTA 06/05/2024 10:00 AM EST Treatment Outpatient Rehabilitation [address] [phone] GilbertoSangeeta diamond, COUNTY COURT JUDGE 06/08/2024 10:30 AM EST Treatment Outpatient Rehabilitation - [address] [phone] Jayden Archuleta, PT 10/28/2024 8:30 AM EDT Office Visit [address] [phone] Farzana Herring MD [address] [place], [place] 02/05/2025 3:00 PM EDT Office Visit [address] [phone] Farzana Herring MD [address] [place], [place] documented as of this encounter Goals [...] Primary documented in this encounter Care Teams Automobile Racer Relationship Specialty Start Date End Date Farzana Herring MD [address] [place] [address] PCP - General Internal Medicine 04/23/24 documented as of this encounter
--- OUTSIDE RECORDS SUMMARY | 2024-05-22 13:37 | XMS_ITS | Clinical Summary ---
Author Organization [address] Address [address] [place] [address] Phone Care Team Providers Care Sheet Metal Duct Installer Apprentice Name Role Phone Farzana Herring MD Primary Care Provider [phone] Allergies Active Allergy Reactions Criticality Noted Date [...] Take by mouth. Active butalbit/acetami n/caff/codeine (BUTALBITAL-ACET HPGVUW-UBL-VDQ ORAL) BUTALBITAL-AP AP-CAFF-COD OR Take by mouth [...] 05/18/2024 11:00 AM EST Treatment Outpatient Rehabilitation [address] [phone] Sangeeta Epstein PTA Chronic pain of both hips (Primary Dx) 05/13/2024 10:00 AM EST Treatment Outpatient [address] [phone] Sangeeta Epstein, REGISTERED PHARMACY TECHNICIAN Chronic pain of both hips (Primary Dx) 05/12/2024 3:00 PM EST Consult Orthopedic Surgery - [address] [phone] Luis Felipe Raman, DPM Chronic pain of both feet (Primary Dx); Lumbosacral radiculopathy; Pes planus of both feet; Metatarsalgia of left foot 05/11/2024 10:30 AM EST Evaluation Outpatient Rehabilitation [address] [phone] Jayden Archuleta, PT Chronic pain of both hips (Primary Dx) 05/11/2024 Plan of Care Documentation Outpatient Rehabilitation - [address] [phone] 04/30/2024 11:12 AM EST - 04/30/2024 11:59 PM EST Hospital Encounter [address] [phone] Chronic pain of both hips Discharge Disposition: Home or Self Care 04/30/2024 11:10 AM EST - 04/30/2024 11:59 PM EST Hospital Encounter [address] [phone] Chronic midline low back pain with bilateral sciatica Discharge Disposition: Home or Self Care 04/30/2024 11:00 AM EST - 04/30/2024 11:59 PM EST Hospital Encounter XRAY - [address] [phone] Chronic pain of both feet Discharge Disposition: Home or Self Care 04/30/2024 10:30 AM EST Office Visit Adult Medicine [address] [phone] Farzana Herring MD Hyperlipidemia, unspecified hyperlipidemia type (Primary Dx); Hypothyroidism, unspecified type; Chronic pain of both hips; Overweight (BMI 25.0-29.9); Chronic midline low back pain with bilateral sciatica; History of gestational diabetes; Family history of diabetes mellitus; Hyperglycemia; Chronic pain of both feet; Muscle spasm 04/23/2024 Telephone Adult Medicine [address] [phone] Farzana Herring MD Back Pain from Last [...] 10:00 AM EST Treatment Outpatient Rehabilitation - [address] [phone] Sangeeta Epstein, REGISTERED PHARMACY TECHNICIAN 05/29/2024 10:00 AM EST Treatment Outpatient [facility] - [address] [phone] Sangeeta Epstein, REGISTERED PHARMACY TECHNICIAN 06/01/2024 10:00 AM EST Treatment Outpatient [facility] - [address] [phone] Sangeeta Epstein, REGISTERED PHARMACY TECHNICIAN 06/05/2024 10:00 AM EST Treatment Outpatient [facility] - [address] [phone] Sangeeta Epstein, REGISTERED PHARMACY TECHNICIAN 06/08/2024 10:30 AM EST Treatment Outpatient [facility] - [address] [phone] Jayden Archuleta, PT 10/28/2024 8:30 AM EDT Office Visit Adult Medicine [address] [phone] Farzana Herring MD [address] [place] [address] 02/05/2025 3:00 PM EDT Office Visit Adult Medicine [facility] [address] [facility] [place] [phone] Farzana Herring MD [address] [facility] [place] [address] Health Maintenance Due Date Last Done Comments [...] free t3 (05/11/2024 10:08 AM EST) Pathologist [facility] TSH 2.95 0.40 - 4.00 mcIU/mL LAB CHEMISTRY METHOD 05/11/2024 3:06 PM EST [facility] Blood Venous blood specimen / Unknown Venipuncture / Unknown 05/11/2024 10:08 AM EST 05/11/2024 10:08 AM EST Farzana Herring MD LAB BLOOD ORDERABLE S [facility] [address] [place] [address], [place] [phone] * (ABNORMAL) Lipid panel with reflex to direct LDL (05/11/2024 10:08 AM EST) Pathologist [facility] Cholesterol 207(H) 0 - 200 mg/dL LAB CHEMISTRY METHOD 05/11/2024 2:59 PM [facility] Triglycerides 145 0 - 150 mg/dL LAB CHEMISTRY METHOD 05/11/2024 2:59 PM EST [facility] HDL 49 >=40 mg/dL LAB CHEMISTRY METHOD 05/11/2024 2:59 PM [facility] LDL Calculated 129(H) 0 - 100 mg/dL LAB CHEMISTRY METHOD 05/11/2024 2:59 PM [facility] VLDL Cholesterol Rambo 29 mg/dL LAB CHEMISTRY METHOD 05/11/2024 2:59 PM [facility] Non HDL Chol. (LDL+VLDL) 158(H) <145 mg/dL LAB CHEMISTRY METHOD 05/11/2024 2:59 PM EST [facility] Chol/HDL Ratio 4.2 0.0 - 4.4 LAB CHEMISTRY METHOD 05/11/2024 2:59 PM EST [facility] Blood Venous blood specimen / Unknown Venipuncture / Unknown 05/11/2024 10:08 AM EST 05/11/2024 10:08 AM EST Farzana Herring MD LAB BLOOD ORDERABLE S Performing Organization Address City/[facility]/ZIP Co de Phone Number [facility] [address] [place] [address], * Phosphorus (05/11/2024 10:08 AM EST) Phosphorus 3.4 2.5 - 4.5 mg/dL LAB CHEMISTRY METHOD 05/11/2024 2:59 PM EST [facility] Blood Venous blood specimen / Unknown Venipuncture / Unknown 05/11/2024 10:08 AM EST 05/11/2024 10:08 AM EST Farzana Herring MD LAB BLOOD ORDERABLE S Performing Organization Address City/[facility]/ZIP Co de Phone Number [facility] [address] [place] [address], * Magnesium (05/11/2024 10:08 AM EST) Magnesium 2.1 1.9 - 2.6 mg/dL LAB CHEMISTRY METHOD 05/11/2024 2:59 PM EST [facility] Blood Venous blood specimen / Unknown Venipuncture / Unknown 05/11/2024 10:08 AM EST 05/11/2024 10:08 AM EST Farzana Herring MD LAB BLOOD ORDERABLE S [facility] [address] [place] [address], [place] [phone] * Hemoglobin A1c (05/11/2024 10:08 AM EST) [facility] Hemoglobin A1C 6.1 <6.5 % LAB CHEMISTRY METHOD 05/11/2024 1:57 PM [facility] Mean Bld Glu Estim. 128 mg/dL LAB CHEMISTRY METHOD 05/11/2024 1:57 PM [facility] Blood Venous blood specimen / Unknown Venipuncture / Unknown 05/11/2024 10:08 AM EST 05/11/2024 10:08 AM EST Farzana Herring MD LAB BLOOD ORDERABLE S [facility] [address] [place] [address], * (ABNORMAL) Comprehensive metabolic panel (05/11/2024 10:08 AM EST) [facility] Sodium 138 133 - 145 mmol/L LAB CHEMISTRY METHOD 05/11/2024 3:28 PM [facility] Potassium 4.9 3.5 - 5.5 mmol/L LAB CHEMISTRY METHOD 05/11/2024 3:28 PM [facility] Chloride 106 96 - 110 mmol/L LAB CHEMISTRY METHOD 05/11/2024 3:28 PM [facility] CO2 28 21 - 32 mmol/L LAB CHEMISTRY METHOD 05/11/2024 3:28 PM [facility] Anion Gap 4 3 - 11 LAB CHEMISTRY METHOD 05/11/2024 3:28 PM [facility] Glucose 137(H) 70 - 100 mg/dL LAB CHEMISTRY METHOD 05/11/2024 3:28 PM [facility] BUN 18 5 - 25 mg/dL LAB CHEMISTRY METHOD 05/11/2024 3:28 PM [facility] Creatinine 0.98 0.50 - 1.10 mg/dL LAB CHEMISTRY METHOD 05/11/2024 3:28 PM [facility] eGFR 67 >=60 mL/min/1. 73m2 LAB CHEMISTRY METHOD 05/11/2024 3:28 PM [facility] Comment:Calculation based on the??Chronic Kidney Disease Epidemiology Collaboration (CKD-EPI) equation refit??without adjustment for race. BUN/Creatinine Ratio 18.4 LAB CHEMISTRY METHOD 05/11/2024 3:28 PM [facility] Calcium 9.6 8.5 - 10.5 mg/dL LAB CHEMISTRY METHOD 05/11/2024 3:28 PM [facility] AST (SGOT) 47(H) 10 - 42 unit/L LAB CHEMISTRY METHOD 05/11/2024 3:28 PM [facility] ALT (SGPT) 68(H) 10 - 60 unit/L LAB CHEMISTRY METHOD 05/11/2024 3:28 PM [facility] Alkaline Phosphatase 126(H) 42 - 121 unit/L LAB CHEMISTRY METHOD 05/11/2024 3:28 PM [facility] Total Protein 7.0 6.0 - 8.0 g/dL LAB CHEMISTRY METHOD 05/11/2024 3:28 PM [facility] Albumin 4.1 3.2 - 5.0 g/dL LAB CHEMISTRY METHOD 05/11/2024 3:28 PM [facility] Total Bilirubin 0.4 0.0 - 1.4 mg/dL LAB CHEMISTRY METHOD 05/11/2024 3:28 PM [facility] Blood Venous blood specimen / Unknown Venipuncture / Unknown 05/11/2024 10:08 AM EST 05/11/2024 10:08 AM EST Farzana Herring MD LAB BLOOD ORDERABLE S [facility] [address] [place] [address], * XR Hips 5+ Views wo or w Pelvis bilat (04/30/2024 11:50 AM EST) Anatomical Region Laterality Modality Lower Extremities, Hip Bilateral Radiograp hic Imaging 04/30/2024 7:32 PM EST Impressions 04/30/2024 7:34 PM EST No hip abnormality identified. POS - [id number] -------- FINAL REPORT -------- Dictated By: Radha Nicholson Dictated Date: 04/30/2024 19:32 ET Assigned Physician: Radha Nicholson Reviewed and Electronically Signed By: Radha Nicholson Signed Date: 04/30/2024 19:34 ET Workstation ID: [id number] Transcribed By: Self Edit Transcribed Date: 04/30/2024 [...] IMPRESSION: No hip abnormality identified. POS - [id number] -------- FINAL REPORT -------- Dictated By: Radha Nicholson Dictated Date: 04/30/2024 19:32 ET Assigned Physician: Radha Nicholson Reviewed and Electronically Signed By: Radha Nicholson Signed Date: 04/30/2024 19:34 ET Workstation ID: [id number] Transcribed By: Self Edit Transcribed Date: 04/30/2024 19:32 ET Authorizing Provider Result Christiano Herring MD IMG XR PROCEDURES * XR Lumbar Spine 4+ Views (04/30/2024 11:49 AM EST) Anatomical Region Laterality Modality Spine, L-spine Radiographic Yahaira ging 04/30/2024 7:26 PM EST Impressions 04/30/2024 7:31 PM EST Multilevel degenerative changes. POS - [id number] -------- FINAL REPORT -------- Dictated By: Radha Nicholson Dictated Date: 04/30/2024 19:26 ET Assigned Physician: Radha Nicholson Reviewed and Electronically Signed By: Radha Nicholson Signed Date: 04/30/2024 19:31 ET Workstation ID: [id number] Transcribed By: Self Edit Transcribed Date: 04/30/2024 [...] throughL5-S1. IMPRESSION: Multilevel degenerative changes. POS - [id number] -------- FINAL REPORT -------- Dictated By: Radha Nicholson Dictated Date: 04/30/2024 19:26 ET Assigned Physician: Radha Nicholson Reviewed and Electronically Signed By: Radha Nicholson Signed Date: 04/30/2024 19:31 ET Workstation ID: [id number] Transcribed By: Self Edit Transcribed Date: 04/30/2024 19:26 ET Farzana Herring MD IMG XR PROCEDURES * XR Foot 3+ Views bilat (04/30/2024 11:48 AM EST) Anatomical Region Laterality Modality Lower Extremities, Foot Bilateral Radiogra phic Imaging 04/30/2024 7:34 PM EST Impressions 04/30/2024 7:39 PM EST Bilateral pes planus. ??Tiny bilateral calcaneal spurs. POS - [id number] -------- FINAL REPORT -------- Dictated By: Radha Nicholson Dictated Date: 04/30/2024 19:34 ET Assigned Physician: Radha Nicholson Reviewed and Electronically Signed By: Radha Nicholson Signed Date: 04/30/2024 19:39 ET Workstation ID: [id number] Transcribed By: Self Edit Transcribed Date: 04/30/2024 [...] planus. Tiny bilateral calcaneal spurs. POS - [id number] -------- FINAL REPORT -------- Dictated By: Radha Nicholson Dictated Date: 04/30/2024 19:34 ET Assigned Physician: Radha Nicholson Reviewed and Electronically Signed By: Radha Nicholson Signed Date: 04/30/2024 19:39 ET Workstation ID: [id number] Transcribed By: Self Edit Transcribed Date: 04/30/2024 19:34 ET Farzana Herring MD IMG XR PROCEDURES * Hepatitis C Screening (05/16/2023) Hepatitis C Screening abstracted Historical Provider MD NEHA Shankar from Last 3 Months or Most Recently Relevant to Health Maintenance Guarantor Name Account Type Relation to Patient Date of Phone Billing Address Olivia Jacome Personal/Family Self 1965 [address] [place] [id number] Care Teams Sheet Metal Duct Installer Apprentice Relationship Specialty Start Date End Date Farzana Herring MD [address] [place] [address] [place] [address] PCP - General Internal Medicine 04/23/24
--- OUTSIDE RECORDS SUMMARY | 2024-05-22 13:37 | XMS_ITS | Encounter Summary ---
Author Organization [facility] Address [address] [place] [address] Care Team Providers Care Manufacturing Cost Estimator Name Role Phone Farzana Herring MD Primary Care Provider [phone] Reason for Visit * Consultation (Routine) - Authorized Specialty Diagnoses / Procedures Referred By Pablito correa Referred To Contact Physical Therapy Diagnoses Chronic pain of both hips Farzana Herring MD [address] [place] [address] Referral ID Status Reason Start Date Expiration Date Visits Requested Visits Authorized [id number] Authorized Specialty Services Required 04/30/2024 04/30/2025 13 13 Encounter Details Date Type Department Care Team (Latest Contact Info) Description 05/11/2024 10:30 AM EST Evaluation Outpatient Rehabilitation [address] [phone] Jayden Archuleta, PT Chronic pain of both [...] from the original note were not included. [facility] - Outpatient PHYSICAL THERAPY EVALUATION Date: [...] Jayden Archuleta PT Language: Speaks and understands Indian as preferred language with no nuclear physician required Chart Reviewed: Yes Medications: Current Outpatient [...] (Patient not taking: Reported on 04/30/2024) butalbit/acetamin/caff/codeine (LLTKYCKVNA-BBJBBSJGNI-ZOD-COD ORAL) EJYBHSXYIN-AFUV-IDTB-COD OR Take by mouth cetirizine (ZyrTEC) 10 [...] restrictions Documentation completed by Jayden Archuleta PT [address] Dept: [phone] Dept PATIENT NAME: Olivia Jacome : 1965 [...] Description 05/25/2024 10:00 AM EST Treatment Outpatient [address] [phone] Sangeeta Epstein PTA 05/29/2024 10:00 AM EST Treatment Outpatient Rehabilitation - [address] [phone] Lucian Sangeeta, FINANCE ADMINISTRATOR 06/01/2024 10:00 AM EST Treatment Outpatient Rehabilitation - [address] [phone] Sangeeta Epstein, FINANCE ADMINISTRATOR 06/05/2024 10:00 AM EST Treatment Outpatient Rehabilitation - [address] [phone] Gilbertodara Sangeeta, FINANCE ADMINISTRATOR 06/08/2024 10:30 AM EST Treatment Outpatient [facility] - [address] [phone] Jayden Archuleta, PT 10/28/2024 8:30 AM EDT Office Visit Adult [address] [phone] Farzana Herring MD [address] [place], [place] 02/05/2025 3:00 PM EDT Office Visit [address] [phone] Farzana Herring MD [address] [place], [place] documented as of this encounter Goals [...] 05/11/2024 documented in this encounter Care Teams Manufacturing Cost Estimator Relationship Specialty Start Date End Date Farzana Herring MD [address] [place] [address] PCP - General Internal Medicine 04/23/24 documented as of this encounter
--- OUTSIDE RECORDS SUMMARY | 2024-05-22 13:37 | XMS_ITS | Encounter Summary ---
Author Organization [facility] Address [address] [place] [address] Care Team Providers Care Internship Name Role Phone Farzana Herring MD Primary Care Provider [phone] Reason for Referral * Consultation (Routine) - Pending Review Specialty Diagnoses / Procedures Referred By Contact Referred To Contact Physical Medicine and Rehabilitation Diagnoses Lumbosacral radiculopathy Luis Felipe Raman DPM [address] [address] Referral ID Status Reason Start Date Expiration Date Visits Requested Visits Authorized [id number] Pending Review Specialty Services Required 05/12/2024 05/12/2025 1 1 Reason for Visit * Reason Comments Foot Pain * Consultation (Routine) - Closed Specialty Diagnoses / Procedures Referred By Contrancho t Referred To Contact Podiatry Diagnoses Chronic pain of both feet Farzana Herring MD [address] [place] [address] Luis Felipe Raman DPM [address] [address] Referral ID Status Reason Start Date Expiration Date V isits Requested Visits Authorized [id number] Closed Specialty Services Required 04/30/2024 04/30/2025 1 1 Encounter Details Date Type Department Care Team ([facility] st Contact Info) Description 05/12/2024 3:00 PM EST Consult Orthopedic Surgery - [place] [address] 175 [facility] [address] [place] [id number] Luis Felipe Raman DPM 175 [facility] [address] [place] [address] Chronic pain of both feet (Primary Dx); [...] Sharp/dull sensation intact, protective sensation intact on [place]. Peripheral neuropathy throughout the feet bilaterally. ORTHOPEDIC: [...] legs. Patient is currently going to a ham trimmer and increasing mobility through the hips lower [...] AM EST Treatment Outpatient Rehabilitation - [address] [phone] Sangeeta Epstein PTA 05/29/2024 10:00 AM EST Treatment Outpatient Rehabilitation - [address] [phone] Sangeeta Epstein PTA 06/01/2024 10:00 AM EST Treatment Outpatient Rehabilitation [address] [phone] Sangeeta Epstein, SAND HAULER 06/05/2024 10:00 AM EST Treatment Outpatient [address] [phone] Sangeeta Epstein, SAND HAULER 06/08/2024 10:30 AM EST Treatment Outpatient [address] [phone] Jayden Archuleta, PT 10/28/2024 8:30 AM EDT Office Visit Adult [address] [phone] Farzana Herring MD [address] [place], [place] 02/05/2025 3:00 PM EDT Office Visit [address] [phone] Farzana Herring MD [address] [place], [place] Scheduled Referrals Name Type Priority Associated [...] 05/12/2024 documented in this encounter Care Teams Internship Relationship Specialty Start Date End Date Farzana Herring MD [address] [place] [address] PCP - General Internal Medicine 04/23/24 documented as of this encounter
--- OUTSIDE RECORDS SUMMARY | 2024-05-22 13:37 | XMS_ITS | Encounter Summary ---
Author Organization [facility] Address [address] [place] [address] Care Team Providers Care Die Repair Machinist Name Role Phone Farzana Herring MD Primary Care Provider [phone] Reason for Visit * Consultation (Routine) - Authorized Specialty Diagnoses / Procedures Referred By Pablito correa Referred To Contact Physical Therapy Diagnoses Chronic pain of both hips Farzana Herring MD [address] [place] [address] Referral ID Status Reason Start Date Expiration Date Visits Requested Visits Authorized [id number] Authorized Specialty Services Required 04/30/2024 04/30/2025 13 13 Encounter Details Date Type Department Care Team ([facility] Contact Info) Description 05/13/2024 10:00 AM EST Treatment Outpatient [address] [phone] Sangeeta Epstein PTA Chronic pain of both [...] Epstein PTA - 05/13/2024 10:00 AM EST [facility] - Outpatient PHYSICAL THERAPY DAILY TREATMENT NOTE - OP Date: 05/13/2024 Visit Number: 2 Patient Name: Olivia Jacome : 1965 Age: 58 y.o. Gender: female Diagnosis: ICD-10-CM ICD-9-CM 1. Chronic pain of both hips M25.551 719.45 M25.552 338.29 G89.29 Date of Onset/Surgery: 05/11/2021 Referring Provider: Farzana Herring MD Insurance: Payor: [employer] MEDICARE / Plan: [address] MEDICARE ADVANTAGE / Product Type: *No Product type* / Patient Identified by: Sangeeta Epstein PTA Language: Sierra Leonean Medications: Current Outpatient Medications on File Prior [...] (Patient not taking: Reported on 04/30/2024) butalbit/acetamin/caff/codeine (BZLNUMLLRG-QBKEVRYVNF-FAZ-COD ORAL) AGYGQABFHU-MVEO-KADE-COD OR Take by mouth cetirizine (ZyrTEC) 10 [...] 10:00 AM EST Treatment Outpatient Rehabilitation - [address] [phone] Sangeeta Epstein, FIRE PREVENTION FORESTER 05/29/2024 10:00 AM EST Treatment Outpatient Rehabilitation [address] [phone] Sangeeta Epstein, FIRE PREVENTION FORESTER 06/01/2024 10:00 AM EST Treatment Outpatient Rehabilitation - [address] [phone] Sangeeta Epstein, FIRE PREVENTION FORESTER 06/05/2024 10:00 AM EST Treatment Outpatient Rehabilitation - [address] [phone] Sangeeta Epstein, FIRE PREVENTION FORESTER 06/08/2024 10:30 AM EST Treatment Outpatient Rehabilitation [address] [phone] Jayden Archuleta, PT 10/28/2024 8:30 AM EDT Office Visit [facility] [address] [place] [phone] Farzana Herring MD [address] [place] 02/05/2025 3:00 PM EDT Office Visit [facility] [address] [place] [phone] Farzana Herring MD [address] [place] [place] [...] Primary documented in this encounter Care Teams Die Repair Machinist Relationship Specialty Start Date End Date Farzana Herring MD [address] [place] PCP - General Internal Medicine 04/23/24 documented as of this encounter
--- OUTSIDE RECORDS SUMMARY | 2024-05-22 13:37 | XMS_ITS | Encounter Summary ---
Author Organization [facility] Address [address] [place] [address] Care Team Providers Care Boiler House Mechanic Name Role Phone Farzana Herring MD Primary Care Provider [phone] Reason for Referral * Consultation (Routine) - Closed Specialty Diagnoses / Procedures Referred By Pablito t Referred To Contact Podiatry Diagnoses Chronic pain of both feet Farzana Herring MD [address] [place] [address] Luis Felipe Raman, BRANT [address] [facility] [address] [place] [address] Referral ID Status Reason Start Date Expiration Date V isits Requested Visits Authorized [id number] Closed Specialty Services Required 04/30/2024 04/30/2025 1 1 * Consultation (Routine) - Authorized Specialty Diagnoses / Procedures Referred By Contac t Referred To Contact Physical Therapy Diagnoses Chronic pain of both hips Farzana Herring MD [address] [place] [address] Referral ID Status Reason Start Date Expiration Date Visits Requested Visits Authorized [id number] Authorized Specialty Services Required 04/30/2024 04/30/2025 13 13 Reason for Visit * Reason Comments Hyperlipidemia Hypothyroidism Encounter Details Date Type Department Care Team ([facility] Contact Info) Description 04/30/2024 10:30 AM EST Office Visit Adult Medicine [facility] [address], [place] [phone] Farzana Herring MD [address] [facility] [place] [address] Hyperlipidemia, unspecified hyperlipidemia type (Primary Dx); Hypothyroidism, [...] sent through Care Everywhere. * Diet: DASH (Namibian) * Back Pain (Namibian) * Hip Pain (Namibian) * Hip Pain: Sex (Namibian) documented in this encounter Ordered Prescriptions Prescription [...] pain with bilateral sciatica Patient moved from [place] in Dec 2022 But she was born and raised in [place] Patient takes fusion multivitamin ROS: The remainder [...] Use in each nostril as directed butalbit/acetamin/caff/codeine (JSOYHKZYGD-CSLNDZBJPJ-FKW-COD ORAL) TWLJXAIRKT-INMI-POAD-COD OR Take by mouth escitalopram (Lexapro) 20 [...] pain with bilateral sciatica Patient moved from [place] in Dec 2022 But she was born and raised in [place] Patient takes fusion multivitamin #Hyperlipidemia #Overweight Plan: [...] ice therapy as needed Patient will try nlfl-hde-[id number] Tylenol as needed Will consider NSAIDs for [...] Description 05/25/2024 10:00 AM EST Treatment Out[facility] [address] [phone] Sangeeta Epstein, GLASS ETCHER 05/29/2024 10:00 AM EST Treatment Out[facility] - [address] [phone] Sangeeta Epstein, GLASS ETCHER 06/01/2024 10:00 AM EST Treatment Outpatient [facility] - [address] [phone] Sangeeta Epstein, GLASS ETCHER 06/05/2024 10:00 AM EST Treatment Outpatient [facility] - [address] [phone] Sangeeta Epstein, GLASS ETCHER 06/08/2024 10:30 AM EST Treatment Outpatient [facility] - [address] [phone] Jayden Archuleta, PT 10/28/2024 8:30 AM EDT Office Visit Adult Medicine [address] [phone] Farzana Herring MD [address] [place] [address] 02/05/2025 3:00 PM EDT Office Visit Adult Medicine [facility] [address] [place], [place] [phone] Farzana Herring MD [address] [place] [address] Scheduled Referrals Name Type Priority Associated Diagnoses [...] LAB CHEMISTRY METHOD 05/11/2024 2:59 PM EST [facility] Blood Venous blood specimen / Unknown Venipuncture / Unknown 05/11/2024 10:08 AM EST 05/11/2024 10:08 AM EST Farzana Herring MD LAB BLOOD ORDERABLE S [facility] [address] [place] [address], * Magnesium (05/11/2024 10:08 AM EST) Magnesium 2.1 1.9 - 2.6 mg/dL LAB CHEMISTRY METHOD 05/11/2024 2:59 PM EST [facility] Blood Venous blood specimen / Unknown Venipuncture / Unknown 05/11/2024 10:08 AM EST 05/11/2024 10:08 AM EST Farzana Herring MD LAB BLOOD ORDERABLE S [facility] [address] [place] [address], * (ABNORMAL) Comprehensive metabolic panel (05/11/2024 10:08 AM EST) Sodium 138 133 - 145 mmol/L LAB CHEMISTRY METHOD 05/11/2024 3:28 PM [facility] Potassium 4.9 3.5 - 5.5 mmol/L LAB CHEMISTRY METHOD 05/11/2024 3:28 PM [facility] Chloride 106 96 - 110 mmol/L LAB CHEMISTRY METHOD 05/11/2024 3:28 PM [facility] CO2 28 21 - 32 mmol/L LAB CHEMISTRY METHOD 05/11/2024 3:28 PM [facility] Anion Gap 4 3 - 11 LAB CHEMISTRY METHOD 05/11/2024 3:28 PM [facility] Glucose 137(H) 70 - 100 mg/dL LAB CHEMISTRY METHOD 05/11/2024 3:28 PM [facility] BUN 18 5 - 25 mg/dL LAB CHEMISTRY METHOD 05/11/2024 3:28 PM [facility] Creatinine 0.98 0.50 - 1.10 mg/dL LAB CHEMISTRY METHOD 05/11/2024 3:28 PM [facility] eGFR 67 >=60 mL/min/1. 73m2 LAB CHEMISTRY METHOD 05/11/2024 3:28 PM [facility] Comment:Calculation based on the??Chronic Kidney Disease Epidemiology Collaboration (CKD-EPI) equation refit??without adjustment for race. BUN/Creatinine Ratio 18.4 LAB CHEMISTRY METHOD 05/11/2024 3:28 PM [facility] Calcium 9.6 8.5 - 10.5 mg/dL LAB CHEMISTRY METHOD 05/11/2024 3:28 PM [facility] AST (SGOT) 47(H) 10 - 42 unit/L LAB CHEMISTRY METHOD 05/11/2024 3:28 PM [facility] ALT (SGPT) 68(H) 10 - 60 unit/L LAB CHEMISTRY METHOD 05/11/2024 3:28 PM EST [facility] Alkaline Phosphatase 126(H) 42 - 121 unit/L LAB CHEMISTRY METHOD 05/11/2024 3:28 PM [facility] Total Protein 7.0 6.0 - 8.0 g/dL LAB CHEMISTRY METHOD 05/11/2024 3:28 PM EST [facility] Albumin 4.1 3.2 - 5.0 g/dL LAB CHEMISTRY METHOD 05/11/2024 3:28 PM [facility] Total Bilirubin 0.4 0.0 - 1.4 mg/dL LAB CHEMISTRY METHOD 05/11/2024 3:28 PM [facility] Blood Venous blood specimen / Unknown Venipuncture / Unknown 05/11/2024 10:08 AM EST 05/11/2024 10:08 AM EST Farzana Herring MD LAB BLOOD ORDERABLE S [facility] [address] [place] [address], * Hemoglobin A1c (05/11/2024 10:08 AM EST) Hemoglobin A1C 6.1 <6.5 % LAB CHEMISTRY METHOD 05/11/2024 1:57 PM [facility] Mean Bld Glu Estim. 128 mg/dL LAB CHEMISTRY METHOD 05/11/2024 1:57 PM EST [facility] Blood Venous blood specimen / Unknown Venipuncture / Unknown 05/11/2024 10:08 AM EST 05/11/2024 10:08 AM EST Farzana Herring MD LAB BLOOD ORDERABLE S [facility] [address] [place] [address], [place] [phone] * Thyroid stimulating hormone with reflex to free t4 and free t3 (05/11/2024 10:08 AM EST) [facility] TSH 2.95 0.40 - 4.00 mcIU/mL LAB CHEMISTRY METHOD 05/11/2024 3:06 PM [facility] Blood Venous blood specimen / Unknown Venipuncture / Unknown 05/11/2024 10:08 AM EST 05/11/2024 10:08 AM EST Farzana Herring MD LAB BLOOD ORDERABLE S [facility] [address] [place] [address], [place] [phone] * (ABNORMAL) Lipid panel with reflex to direct LDL (05/11/2024 10:08 AM EST) [facility] Cholesterol 207(H) 0 - 200 mg/dL LAB CHEMISTRY METHOD 05/11/2024 2:59 PM [facility] Triglycerides 145 0 - 150 mg/dL LAB CHEMISTRY METHOD 05/11/2024 2:59 PM [facility] HDL 49 >=40 mg/dL LAB CHEMISTRY METHOD 05/11/2024 2:59 PM [facility] LDL Calculated 129(H) 0 - 100 mg/dL LAB CHEMISTRY METHOD 05/11/2024 2:59 PM [facility] VLDL Cholesterol Rambo 29 mg/dL LAB CHEMISTRY METHOD 05/11/2024 2:59 PM [facility] Non HDL Chol. (LDL+VLDL) 158(H) <145 mg/dL LAB CHEMISTRY METHOD 05/11/2024 2:59 PM [facility] Chol/HDL Ratio 4.2 0.0 - 4.4 LAB CHEMISTRY METHOD 05/11/2024 2:59 PM [facility] Blood Venous blood specimen / Unknown Venipuncture / Unknown 05/11/2024 10:08 AM EST 05/11/2024 10:08 AM EST Farzana Herring MD LAB BLOOD ORDERABLE S [facility] [address] [place] [address], documented in this encounter Visit Diagnoses Diagnosis [...] documented as of this encounter Care Teams Boiler House Mechanic Relationship Specialty Start Date End Date Farzana Herring MD [address] [facility] [place] [address] PCP - General Internal Medicine 04/23/24 documented as of this encounter
--- OUTSIDE RECORDS SUMMARY | 2024-05-22 13:37 | XMS_ITS | Encounter Summary ---
Author Organization [facility] Address [address] [place] [address] Care Team Providers Care Community Development Specialist Name Role Phone Farzana Herring MD Primary Care Provider [phone] Encounter Details Date Type Department Care Team (Latest Contact Info) Description 05/11/2024 Plan of Care Documentation Outpatient Rehabilitation - [address] [address] Social History Tobacco Use Types Packs/Day Years [...] from the original note were not included. [facility] - Outpatient PHYSICAL THERAPY EVALUATION Date: 05/11/2024 Visit Number: 1 Patient Name: Olivia Jacome : 1965 Age: 58 y.o. Gender: female Diagnosis: ICD-10-CM ICD-9-CM 1. Chronic pain of both hips M25.551 719.45 Ambulatory referral to Physical Therapy and Athletic Training M25.552 338.29 G89.29 Date of Onset/Surgery: 05/11/2021 Referring Provider: Farzana Herring MD Insurance: Payor: [facility] MED[facility] / Plan: LIFE1 A[employer] MEDICARE ADVANTAGE / Product Type: *No Product type* / Patient identified by: Jayden Archuleta PT Language: Speaks and understands Japanese as preferred language with no coal washer tender required Chart Reviewed: Yes Medications: Current Outpatient [...] (Patient not taking: Reported on 04/30/2024) butalbit/acetamin/caff/codeine (HWRBKBCTFQ-BUMNXPMWNE-NLY-COD ORAL) [id number]-AALX-COD OR Take by mouth cetirizine (ZyrTEC) 10 [...] Documentation completed by Jayden Archuleta PT OUTPATIENT [address] Dept: [phone] Dept PATIENT NAME: Olivia Jacome : 1965 [...] 10:00 AM EST Treatment Outpatient Rehabilitation - [address] [phone] Sangeeta Epstein, SLAB STRIPPER 05/29/2024 10:00 AM EST Treatment Outpatient Rehabilitation [address] [phone] Sangeeta Epstein, SLAB STRIPPER 06/01/2024 10:00 AM EST Treatment Outpatient Rehabilitation [address] [phone] Sangeeta Epstein, SLAB STRIPPER 06/05/2024 10:00 AM EST Treatment Outpatient [address] [place] [phone] Sangeeta Epstein, SLAB STRIPPER 06/08/2024 10:30 AM EST Treatment Outpatient Rehabilitation [address] [phone] Jayden Archuleta, WINSTON 10/28/2024 8:30 AM EDT Office Visit [address] [phone] Farzana Herring MD [address] [place], [place] 02/05/2025 3:00 PM EDT Office Visit [address] [phone] Farzana Herring MD [address] [place], [place] documented as of this encounter Goals [...] on filedocumented in this encounter Care Teams Community Development Specialist Relationship Specialty Start Date End Date Farzana Herring MD [address] [place] [address] PCP - General Internal Medicine 04/23/24 documented as of this encounter
--- OUTSIDE RECORDS SUMMARY | 2024-05-22 13:37 | XMS_ITS | Encounter Summary ---
Author Organization [facility] Address [address] [place] [address] Care Team Providers Care Party Plan Sales Unit Sales Leader Name Role Phone Farzana Herring MD Primary Care Provider [phone] Encounter Details Date Type Department Care Team (Latest Contact Info) Description 04/30/2024 11:12 AM EST - 04/30/2024 11:59 PM [facility] Hospital Encounter XRAY - [place] [address] [place] [address] Chronic pain of both hips Discharge Disposition: [...] mg capsule Take by mouth. butalbit/acetamin/caff/c odeine (CLWDXVLMVL-EYUUCXUAEP-Q AF-COD ORAL) [id number]- COD OR Take by mouth cetirizine (ZyrTEC) [...] Description 05/25/2024 10:00 AM EST Treatment Outpatient [address] [phone] Sangeeta Epstein, DRIED FRUIT WASHER 05/29/2024 10:00 AM EST Treatment Outpatient [facility] - [address] [phone] Sangeeta Epstein, DRIED FRUIT WASHER 06/01/2024 10:00 AM EST Treatment Outpatient [address] [phone] Sangeeta Epstein, DRIED FRUIT WASHER 06/05/2024 10:00 AM EST Treatment Outpatient [address] [phone] Sangeeta Epstein, DRIED FRUIT WASHER 06/08/2024 10:30 AM EST Treatment Outpatient [address] [phone] Jayden Archuleta, PT 10/28/2024 8:30 AM EDT Office Visit Adult Medicine [address] [phone] Farzana Herring MD [address] [place] [address] 02/05/2025 3:00 PM EDT Office Visit Adult Medicine [facility] [address] [facility] [place] [address] Farzana Herring MD [address] [facility] [place] [address] documented as of this encounter Procedures Procedure [...] EST No hip abnormality identified. POS - [id number] -------- FINAL REPORT -------- Dictated By: Radha Nicholson Dictated Date: 04/30/2024 19:32 ET Assigned Physician: Radha Nicholson Reviewed and Electronically Signed By: Radha Nicholson Signed Date: 04/30/2024 19:34 ET Workstation ID: [id number] Transcribed By: Self Edit Transcribed Date: 04/30/2024 [...] IMPRESSION: No hip abnormality identified. POS - [id number] -------- FINAL REPORT -------- Dictated By: Radha Nicholson Dictated Date: 04/30/2024 19:32 ET Assigned Physician: Radha Nicholson Reviewed and Electronically Signed By: Radha Nicholson Signed Date: 04/30/2024 19:34 ET Workstation ID: [id number] Transcribed By: Self Edit Transcribed Date: 04/30/2024 19:32 ET Farzana Herring MD IMG XR PROCEDURES documented in this encounter Visit Diagnoses Diagnosis Chronic pain of both hips documented in this encounter Care Teams Party Plan Sales Unit Sales Leader Relationship Specialty Start Date End Date Farzana Herring MD [address] [place] [address] PCP - General Internal Medicine 04/23/24 documented as of this encounter
--- OUTSIDE RECORDS SUMMARY | 2024-05-22 13:37 | XMS_ITS | Encounter Summary ---
Author Organization [facility] Address [address] [place] [address] Care Team Providers Care Household Personal Assistant Name Role Phone Farzana Herring MD Primary Care Provider [phone] Reason for Visit * Reason Onset Date Comments Back Pain 04/23/2024 Encounter Details Date Type Department Care Team ([facility] Contact Info) Description 04/23/2024 Telephone Adult Medicine [facility] [address] [place] [address] Farzana Herring MD [address] [place] [address] Back Pain Social History Tobacco Use Types [...] to keep appt in oct also for PE/POST OFFICE CLERK appt * Scarlet Satya - 04/23/2024 11:56 [...] traveled recently to another state outside of [place], [place], [place], [place], [place], [place], [place]? no o If yes, did you quarantine [...] of accident/Injury: No If yes, gather 3rd libertarian insurance information Third Constitution Party Information: not applicable PCP: Farzana Herring MD Payor: / No coverage found. documented in this encounter Plan of Treatment Upcoming Encounters Date Type Department Care Team (Late st Contact Info) Description 05/25/2024 10:00 AM EST Treatment Outpatient Rehabilitation - [address] [phone] Sangeeta Epstein PTA 05/29/2024 10:00 AM EST Treatment Outpatient Rehabilitation - [address] [phone] Sangeeta Epstein, HOT DIP GALVANIZER 06/01/2024 10:00 AM EST Treatment Outpatient [address] [phone] Sangeeta Epstein, HOT DIP GALVANIZER 06/05/2024 10:00 AM EST Treatment Outpatient [address] [phone] Sangeeta Epstein, HOT DIP GALVANIZER 06/08/2024 10:30 AM EST Treatment Outpatient [address] [phone] Jayden Archuleta, PT 10/28/2024 8:30 AM EDT Office Visit Adult [address] [phone] Farzana Herring MD [address] [place], [place] 02/05/2025 3:00 PM EDT Office Visit Adult [address] [phone] Farzana Herrnig MD [address] [place], [place] documented as of this encounter Visit Diagnoses Not on filedocumented in this encounter Care Teams Household Personal Assistant Relationship Specialty Start Date End Date Farzana Herring MD [address] [place], [place] PCP - General Internal Medicine 04/23/24 documented as of this encounter
--- OUTSIDE RECORDS SUMMARY | 2024-05-22 13:37 | XMS_ITS | Encounter Summary ---
Author Organization [facility] Address [address] [place] [address] Care Team Providers Care Digital X Ray Service Engineer Name Role Phone Farzana Herring MD Primary Care Provider [phone] Encounter Details Date Type Department Care Team (Latest Contact Info) Description 04/30/2024 11:00 AM EST - 04/30/2024 11:59 PM [facility] Hospital Encounter XRAY - [place] [address] [place] [address] Chronic pain of both feet Discharge Disposition: [...] mg capsule Take by mouth. butalbit/acetamin/caff/c odeine ([id number]-[id number]-E AF-COD ORAL) [id number]- COD OR Take by mouth cetirizine (ZyrTEC) [...] Description 05/25/2024 10:00 AM EST Treatment Outpatient [address] [phone] Sangeeta Epstein, WASH HOUSE WORKER 05/29/2024 10:00 AM EST Treatment Outpatient [facility] - [address] [phone] Sangeeta Epstein, WASH HOUSE WORKER 06/01/2024 10:00 AM EST Treatment Outpatient [address] [phone] Sangeeta Epstein, WASH HOUSE WORKER 06/05/2024 10:00 AM EST Treatment Outpatient [address] [phone] Sangeeta Epstein, WASH HOUSE WORKER 06/08/2024 10:30 AM EST Treatment Outpatient [address] [phone] Jayden Archuleta, PT 10/28/2024 8:30 AM EDT Office Visit Adult Medicine [address] [phone] Farzana Herring MD [address] [place] [address] 02/05/2025 3:00 PM EDT Office Visit Adult Medicine [facility] [address] [facility] [place] [address] Farzana Herring MD [address] [facility] [place] documented as of this encounter Procedures Procedure [...] planus. ??Tiny bilateral calcaneal spurs. POS - [id number] -------- FINAL REPORT -------- Dictated By: Radha Nicholson Dictated Date: 04/30/2024 19:34 ET Assigned Physician: Radha Nicholson Reviewed and Electronically Signed By: Radha Nicholson Signed Date: 04/30/2024 19:39 ET Workstation ID: [id number] Transcribed By: Self Edit Transcribed Date: 04/30/2024 [...] planus. Tiny bilateral calcaneal spurs. POS - [id number] -------- FINAL REPORT -------- Dictated By: Radha Nicholson Dictated Date: 04/30/2024 19:34 ET Assigned Physician: Radha Nicholson Reviewed and Electronically Signed By: Radha Nicholson Signed Date: 04/30/2024 19:39 ET Workstation ID: [id number] Transcribed By: Self Edit Transcribed Date: 04/30/2024 19:34 ET Farzana Herring MD IMG XR PROCEDURES documented in this encounter Visit Diagnoses Diagnosis Chronic pain of both feet documented in this encounter Care Teams Digital X Ray Service Engineer Relationship Specialty Start Date End Date Farzana Herring MD [address] [place] [address] PCP - General Internal Medicine 04/23/24 documented as of this encounter
[2024-05-22 14:29] LABS: Influenza A PCR POSITIVE (Negative); Influenza B PCR NEGATIVE (Negative); Resp Syncy Virus RNA Qual PCR NEGATIVE (Negative); SARS COV2 PCR INHOUSE NEGATIVE (Negative)
== END 2024-05-22 08:01 | disposition home or self-care (01) ==
LOC: HO.LNP 08:00
PROVIDERS: Visit Provider Physician Assistant Medical
DX: J06.9 Acute upper respiratory infection, unspecified (principal); L50.0 Allergic urticaria; R00.0 Tachycardia, unspecified; R22.0 Localized swelling, mass and lump, head
CPT/HCPCS: 0241U; 93005; 99212

== ENCOUNTER → 2024-05-22 08:00 | Outpatient (AMB) ==
--- OUTSIDE RECORDS SUMMARY | 2024-05-22 08:04 | XMS_ITS | Encounter Summary ---
Author Organization [facility] Address [address] [place] [address] Care Team Providers Care Ferris Wheel Operator Name Role Phone Farzana Herring MD Primary Care Provider [phone] Reason for Referral * Consultation (Routine) - Closed Specialty Diagnoses / Procedures Referred By Pablito t Referred To Contact Podiatry Diagnoses Chronic pain of both feet Farzana Herring MD [address] [place] [address] Luis Felipe Raman, BRANT [address] [facility] [address] [place] [address] Referral ID Status Reason Start Date Expiration Date V isits Requested Visits Authorized [id number] Closed Specialty Services Required 04/30/2024 04/30/2025 1 1 * Consultation (Routine) - Authorized Specialty Diagnoses / Procedures Referred By Contac t Referred To Contact Physical Therapy Diagnoses Chronic pain of both hips Farzana Herring MD [address] [place] [address] Referral ID Status Reason Start Date Expiration Date Visits Requested Visits Authorized [id number] Authorized Specialty Services Required 04/30/2024 04/30/2025 13 13 Reason for Visit * Reason Comments Hyperlipidemia Hypothyroidism Encounter Details Date Type Department Care Team ([facility] Contact Info) Description 04/30/2024 10:30 AM EST Office Visit Adult Medicine [facility] [address] [place], [place] [phone] Farzana Herring MD [address] [place] [address] Hyperlipidemia, unspecified hyperlipidemia type (Primary Dx); Hypothyroidism, unspecified type; Chronic pain of both hips; Overweight (BMI 25.0-29.9); Chronic midline low back pain with bilateral sciatica; History of gestational diabetes; Family history of diabetes mellitus; Hyperglycemia; Chronic pain of both feet; Muscle spasm Social History Tobacco Use Types Packs/Day Years Used Date Smoking Tobacco: Never Smokeless Tobacco: Never Alcohol Use Standard Drinks/Week Comments Never 0 (1 standard drink = 0.6 oz pur e alcohol) Sex and Gender Information Value Date Recorded Sex Assigned at Not on file Gender Identity Not on file Sexual Orientation Not on file Job Start Date Occupation Industry Not on file Not on file Not on file documented as of this encounter Last Filed Vital Signs Vital Sign Reading Time Taken Comments Blood Pressure 124/70 04/30/2024 10:32 AM EST Pulse 86 04/30/2024 10:32 AM EST Temperature 36.5 ??C (97.7 ??F) 04/30/2024 10:[address] Respiratory Rate 12 04/30/2024 10:32 AM EST Oxygen Saturation - - Inhaled Oxygen Concentration - - Weight 74.8 kg (165 lb) 04/30/2024 10:32 AM EST Height 162.6 cm (5' 4 ) 04/30/2024 10:32 AM EST Body Mass Index 28.32 04/30/2024 10:32 AM EST documented in this encounter Patient Instructions * Attachments The following attachments cannot be sent through Care Everywhere. * Diet: DASH (Cymraes) * Back Pain (Cymraes) * Hip Pain (Cymraes) * Hip Pain: Sex (Cymraes) documented in this encounter Ordered Prescriptions Prescription Sig Dispensed Refills Start Date End Da te loratadine (CLARITIN) 10 mg tablet Take 1 tablet (10 mg total) by mouth 1 (one) time each day if needed for allergies. 90 each 1 04/30/2024 acetaminophen (Tylenol 8 Hour) 650 mg 8 hr tablet Take 1 tablet (650 mg total) by mouth every 8 (eight) hours if needed for mild pain. Do not crush, chew, or split. 60 tablet 2 04/30/2024 atorvastatin (LIPITOR) 10 mg tablet Take 1 tablet (10 mg total) by mouth 1 (one) time each day. 90 tablet 1 04/30/2024 atorvastatin (LIPITOR) 10 mg tablet Take 1 tablet (10 mg total) by mouth 1 (one) time each day. 90 tablet 04/30/2024 04/30/2024 documented in this encounter Progress Notes * Farzana Herring MD - 04/30/2024 10:30 AM EST CHIEF COMPLAINT: Hyperlipidemia and Hypothyroidism IDENTIFIER: Olivia Jacome is a 58 y.o. old female. HPI: 58 yo F comes for follow up: Hyperlipidemia Hypothyroidism Chronic hip pain Chronic low back pain with bilateral sciatica Patient moved from [place] in Dec 2022 But she was born and raised in [place] Patient takes fusion multivitamin ROS: The remainder of review of systems is noncontributory. PAST MEDICAL HISTORY: Patient Active Problem List Diagnosis Date Noted Overweight (BMI 25.0-29.9) 04/30/2024 Chronic pain of both hips 04/30/2024 Allergy 06/14/2023 Hyperglycemia 06/14/2023 Hypothyroidism 06/14/2023 Pure hypercholesterolemia 06/14/2023 SOCIAL HISTORY: Social History Tobacco Use Smoking status: Never Smokeless tobacco: Never Substance Use Topics Alcohol use: Never FAMILY HISTORY: No family status information on file. No family history on file. ACTIVE MEDICATIONS: Outpatient Medications Marked as Taking for the 04/30/24 encounter (Office Visit) with Farzana Herring MD Medication Sig Dispense Refill atorvastatin (LIPITOR) 10 mg tablet Take 1 tablet (10 mg total) by mouth 1 (one) time each day. 90 tablet 1 azelastine (ASTELIN) 137 mcg (0.1 %) nasal spray 2 Sprays by Each Nare route 2 times daily. Use in each nostril as directed butalbit/acetamin/caff/codeine ([id number]-COD ORAL) [id number] OR Take by mouth escitalopram (Lexapro) 20 mg tablet Take 1 Tablet by mouth daily. levothyroxine (SYNTHROID, LEVOTHROID) 25 mcg tablet Take 1 Tablet by mouth daily. OMEPRAZOLE ORAL Take by mouth. [DISCONTINUED] atorvastatin (LIPITOR) 10 mg tablet Take 1 tablet (10 mg total) by mouth 1 (one) time each day. 90 tablet 1 [DISCONTINUED] atorvastatin (LIPITOR) 10 mg tablet Take 1 tablet (10 mg total) by mouth 1 (one) time each day. 90 tablet 0 ALLERGIES: Amoxicillin, Other, and Sulfa (sulfonamide antibiotics) PHYSICAL EXAM: Blood pressure 124/70, pulse 86, temperature 36.5 ??C (97.7 ??F), resp. rate 12, height 1.626 m (64 ), weight 74.8 kg (165 lb). Body mass index is 28.32 kg/m??. BMI is greater than 25.0 (above the normal range) - see Plan APPEARANCE: Alert and in no acute distress HEART: RRR with normal S1 and S2, no murmurs, no gallops, no JVD appreciated LUNG: clear to auscultation bilaterally IMPRESSION: 1. Hyperlipidemia, unspecified hyperlipidemia type 2. Hypothyroidism, unspecified type 3. Chronic pain of both hips 4. Overweight (BMI 25.0-29.9) 5. Chronic midline low back pain with bilateral sciatica 6. History of gestational diabetes 7. Family history of diabetes mellitus 8. Hyperglycemia 9. Chronic pain of both feet 10. Muscle spasm PLAN: 58 yo F comes for follow up: Hyperlipidemia Hypothyroidism Chronic hip pain Chronic low back pain with bilateral sciatica Patient moved from [place] in Dec 2022 But she was born and raised in [place] Patient takes fusion multivitamin #Hyperlipidemia #Overweight Plan: Patient will work on lifestyle changes including diet and exercise Patient will continue with Lipitor 10 mg daily Patient agreeable for repeat labs including lipid profile to reassess hyperlipidemia #Muscle spasm Plan: CMP, magnesium and phosphorus levels ordered #Hyperglycemia #History of gestational diabetes #Family history of diabetes mellitus Plan: Patient agreeable for A1c to assess for diabetes mellitus #Hypothyroidism Plan: Patient agreeable for repeat thyroid function test Patient will continue with levothyroxine 25 mcg daily #Chronic hip pain #Chronic low back pain with bilateral sciatica #Chronic feet pain Plan: Patient agreeable for x-ray of hips, low back, feet to evaluate for fracture/dislocation/osteoarthritis Patient referred to podiatry for foot exam Patient referred to physical therapy for musculoskeletal pain Patient will do ice therapy as needed Patient will try [id number] Tylenol as needed Will consider NSAIDs for pain as needed depending on patient's kidney function test Orders Placed This Encounter Procedures Lipid panel with reflex to direct LDL Thyroid stimulating hormone with reflex to free t4 and free t3 Hemoglobin A1c Comprehensive metabolic panel Magnesium Phosphorus Ambulatory referral to Physical Therapy and Athletic Training Ambulatory referral to Podiatry ADDITIONAL ORDERS: AMB REFERRAL TO PHYSICAL THERAPY AND ATHLETIC TRAINING AMB REFERRAL TO PODIATRY Farzana Herring MD on 04/30/2024 at 12:27 PM EST documented in this encounter Plan of Treatment Upcoming Encounters Date Type Department Care Team (Late st Contact Info) Description 05/25/2024 10:00 AM EST Treatment Outpatient [facility] - [address] [phone] Sangeeta Epstein, CODING SPECIALIST HOME HEALTH 05/29/2024 10:00 AM EST Treatment Outpatient [facility] - [address] [phone] Sangeeta Epstein, CODING SPECIALIST HOME HEALTH 06/01/2024 10:00 AM EST Treatment Outpatient [facility] - [address] [phone] Sangeeta Epstein, CODING SPECIALIST HOME HEALTH 06/05/2024 10:00 AM EST Treatment Outpatient [facility] - [address] [phone] Sangeeta Epstein, CODING SPECIALIST HOME HEALTH 06/08/2024 10:30 AM EST Treatment Outpatient [facility] - [address] [phone] Jayden Archuleta, PT 10/28/2024 8:30 AM EDT Office Visit Adult Medicine [address] [phone] Farzana Herring MD [address] [place] [address] 02/05/2025 3:00 PM EDT Office Visit Adult Medicine [facility] [address] [place], [place] [phone] Farzana Herring MD [address] [place] [address] Scheduled Referrals Name Type Priority Associated Diagnoses Order Schedule Ambulatory referral to Physical Therapy and Athletic Training Outpatient Referral Routine Chronic pain of both hips 1 Occurrences starting 04/30/2024 until 04/30/2025 Ambulatory referral to Podiatry Outpatient Referral Routine Chronic pain of both feet 1 Occurrences starting 04/30/2024 until 04/30/2025 documented as of this encounter Results * Phosphorus (05/11/2024 10:08 AM EST) Phosphorus 3.4 2.5 - 4.5 mg/dL LAB CHEMISTRY METHOD 05/11/2024 2:59 PM EST [facility] Blood Venous blood specimen / Unknown Venipuncture / Unknown 05/11/2024 10:08 AM EST 05/11/2024 10:08 AM EST Farzana Herring MD LAB BLOOD ORDERABLE S [facility] [address] [place] [address], * Magnesium (05/11/2024 10:08 AM EST) Magnesium 2.1 1.9 - 2.6 mg/dL LAB CHEMISTRY METHOD 05/11/2024 2:59 PM EST [facility] Blood Venous blood specimen / Unknown Venipuncture / Unknown 05/11/2024 10:08 AM EST 05/11/2024 10:08 AM EST Farzana Herring MD LAB BLOOD ORDERABLE S [facility] [address] [place] [address], * (ABNORMAL) Comprehensive metabolic panel (05/11/2024 10:08 AM EST) Sodium 138 133 - 145 mmol/L LAB CHEMISTRY METHOD 05/11/2024 3:28 PM [facility] Potassium 4.9 3.5 - 5.5 mmol/L LAB CHEMISTRY METHOD 05/11/2024 3:28 PM [facility] Chloride 106 96 - 110 mmol/L LAB CHEMISTRY METHOD 05/11/2024 3:28 PM [facility] CO2 28 21 - 32 mmol/L LAB CHEMISTRY METHOD 05/11/2024 3:28 PM [facility] Anion Gap 4 3 - 11 LAB CHEMISTRY METHOD 05/11/2024 3:28 PM [facility] Glucose 137(H) 70 - 100 mg/dL LAB CHEMISTRY METHOD 05/11/2024 3:28 PM [facility] BUN 18 5 - 25 mg/dL LAB CHEMISTRY METHOD 05/11/2024 3:28 PM [facility] Creatinine 0.98 0.50 - 1.10 mg/dL LAB CHEMISTRY METHOD 05/11/2024 3:28 PM [facility] eGFR 67 >=60 mL/min/1. 73m2 LAB CHEMISTRY METHOD 05/11/2024 3:28 PM [facility] Comment:Calculation based on the??Chronic Kidney Disease Epidemiology Collaboration (CKD-EPI) equation refit??without adjustment for race. BUN/Creatinine Ratio 18.4 LAB CHEMISTRY METHOD 05/11/2024 3:28 PM [facility] Calcium 9.6 8.5 - 10.5 mg/dL LAB CHEMISTRY METHOD 05/11/2024 3:28 PM [facility] AST (SGOT) 47(H) 10 - 42 unit/L LAB CHEMISTRY METHOD 05/11/2024 3:28 PM [facility] ALT (SGPT) 68(H) 10 - 60 unit/L LAB CHEMISTRY METHOD 05/11/2024 3:28 PM EST [facility] Alkaline Phosphatase 126(H) 42 - 121 unit/L LAB CHEMISTRY METHOD 05/11/2024 3:28 PM [facility] Total Protein 7.0 6.0 - 8.0 g/dL LAB CHEMISTRY METHOD 05/11/2024 3:28 PM EST [facility] Albumin 4.1 3.2 - 5.0 g/dL LAB CHEMISTRY METHOD 05/11/2024 3:28 PM [facility] Total Bilirubin 0.4 0.0 - 1.4 mg/dL LAB CHEMISTRY METHOD 05/11/2024 3:28 PM [facility] Blood Venous blood specimen / Unknown Venipuncture / Unknown 05/11/2024 10:08 AM EST 05/11/2024 10:08 AM EST Farzana Herring MD LAB BLOOD ORDERABLE S [facility] [address] [place] [address], * Hemoglobin A1c (05/11/2024 10:08 AM EST) Hemoglobin A1C 6.1 <6.5 % LAB CHEMISTRY METHOD 05/11/2024 1:57 PM [facility] Mean Bld Glu Estim. 128 mg/dL LAB CHEMISTRY METHOD 05/11/2024 1:57 PM EST [facility] Blood Venous blood specimen / Unknown Venipuncture / Unknown 05/11/2024 10:08 AM EST 05/11/2024 10:08 AM EST Farzana Herring MD LAB BLOOD ORDERABLE S [facility] [address] [place] [address], [place] [phone] * Thyroid stimulating hormone with reflex to free t4 and free t3 (05/11/2024 10:08 AM EST) [facility] TSH 2.95 0.40 - 4.00 mcIU/mL LAB CHEMISTRY METHOD 05/11/2024 3:06 PM [facility] Blood Venous blood specimen / Unknown Venipuncture / Unknown 05/11/2024 10:08 AM EST 05/11/2024 10:08 AM EST Farzana Herring MD LAB BLOOD ORDERABLE S [facility] [address] [place] [address], [place] [phone] * (ABNORMAL) Lipid panel with reflex to direct LDL (05/11/2024 10:08 AM EST) [facility] Cholesterol 207(H) 0 - 200 mg/dL LAB CHEMISTRY METHOD 05/11/2024 2:59 PM [facility] Triglycerides 145 0 - 150 mg/dL LAB CHEMISTRY METHOD 05/11/2024 2:59 PM [facility] HDL 49 >=40 mg/dL LAB CHEMISTRY METHOD 05/11/2024 2:59 PM [facility] LDL Calculated 129(H) 0 - 100 mg/dL LAB CHEMISTRY METHOD 05/11/2024 2:59 PM [facility] VLDL Cholesterol Rambo 29 mg/dL LAB CHEMISTRY METHOD 05/11/2024 2:59 PM [facility] Non HDL Chol. (LDL+VLDL) 158(H) <145 mg/dL LAB CHEMISTRY METHOD 05/11/2024 2:59 PM [facility] Chol/HDL Ratio 4.2 0.0 - 4.4 LAB CHEMISTRY METHOD 05/11/2024 2:59 PM [facility] Blood Venous blood specimen / Unknown Venipuncture / Unknown 05/11/2024 10:08 AM EST 05/11/2024 10:08 AM EST Farzana Herring MD LAB BLOOD ORDERABLE S [facility] [address] [place] [address], documented in this encounter Visit Diagnoses Diagnosis Hyperlipidemia, unspecified hyperlipidemia type- Primary Hypothyroidism, unspecified type Chronic pain of both hips Overweight (BMI 25.0-29.9) Overweight Chronic midline low back pain with bilateral sciatica History of gestational diabetes Personal history of other genital system and obstetric disorders Family history of diabetes mellitus Hyperglycemia Other abnormal glucose Chronic pain of both feet Muscle spasm Spasm of muscle documented in this encounter Discontinued Medications Medication Sig Discontinue Reason Start Date End Da te atorvastatin (LIPITOR) 10 mg tablet Take 1 tablet (10 mg total) by mouth 1 (one) time each day. Reorder 03/23/2024 04/30/2024 atorvastatin (LIPITOR) 10 mg tablet Take 1 tablet (10 mg total) by mouth 1 (one) time each day. 04/30/2024 04/30/2024 documented as of this encounter Care Teams Ferris Wheel Operator Relationship Specialty Start Date End Date Farzana Herring MD [address] [facility] [place] [address] PCP - General Internal Medicine 04/23/24 documented as of this encounter
--- OUTSIDE RECORDS SUMMARY | 2024-05-22 08:04 | XMS_ITS | Encounter Summary ---
Author Organization [facility] Address [address] [place] [address] Care Team Providers Care Fireproof Door Maker Name Role Phone Farzana Herring MD Primary Care Provider [phone] Encounter Details Date Type Department Care Team (Latest Contact Info) Description 05/11/2024 Plan of Care Documentation Outpatient Rehabilitation - [address] [address] Social History Tobacco Use Types Packs/Day Years [...] on file documented as of this encounter Progress Notes * Jayden Archuleta, PT - 05/11/2024 2:18 PM EST Images from the original note were not included. [facility] - Outpatient PHYSICAL THERAPY EVALUATION Date: 05/11/2024 Visit Number: 1 Patient Name: Olivia Jacome : 1965 Age: 58 y.o. Gender: female Diagnosis: ICD-10-CM ICD-9-CM 1. Chronic pain of both hips M25.551 719.45 Ambulatory referral to Physical Therapy and Athletic Training M25.552 338.29 G89.29 Date of Onset/Surgery: 05/11/2021 Referring Provider: Farzana Herring MD Insurance: Payor: [facility] MEDICARE / Plan: LIFE1 AARP MEDICARE ADVANTAGE / Product Type: *No Product type* / Patient identified by: Jayden Archuleta PT Language: Speaks and understands Greenlandic as preferred language with no airline station agent required Chart Reviewed: Yes Medications: Current Outpatient Medications on File Prior to Visit Medication Sig Dispense Refill acetaminophen (Tylenol 8 Hour) 650 mg 8 hr tablet Take 1 tablet (650 mg total) by mouth every 8 (eight) hours if needed for mild pain. Do not crush, chew, or split. 60 tablet 2 atorvastatin (LIPITOR) 10 mg tablet Take 1 tablet (10 mg total) by mouth 1 (one) time each day. 90 tablet 1 azelastine (ASTELIN) 137 mcg (0.1 %) nasal spray 2 Sprays by Each Nare route 2 times daily. Use in each nostril as directed biotin 1 mg capsule Take by mouth. (Patient not taking: Reported on 04/30/2024) butalbit/acetamin/caff/codeine (YVNXTFLBZI-IFFNWSLHMC-BUR-COD ORAL) PMZONVRSTH-RRMM-JRUL-COD OR Take by mouth cetirizine (ZyrTEC) 10 mg capsule Take by mouth. (Patient not taking: Reported on 04/30/2024) escitalopram (Lexapro) 20 mg tablet Take 1 Tablet by mouth daily. levothyroxine (SYNTHROID, LEVOTHROID) 25 mcg tablet Take 1 Tablet by mouth daily. loratadine (CLARITIN) 10 mg tablet Take 1 tablet (10 mg total) by mouth 1 (one) time each day if needed for allergies. 90 each 1 OMEPRAZOLE ORAL Take by mouth. No current facility-administered medications on file prior to visit. Advised Patient to contact MD with any questions regarding medications and importance of managing medication information. has a past medical history of Allergy, Hypothyroidism, and Pure hypercholesterolemia. has no past surgical history on file. is allergic to amoxicillin, other, and sulfa (sulfonamide antibiotics). Precautions: N/A Previous Medical Care/Therapy: N/A SUBJECTIVE History of Present Illness/Subjective Report: Pt reports 3 year history of B hip pain but has been moving around and no health insurance. Pt now has health insurance and was able to see MD for hip pain. Pt had X-rays that showed no hip abnormalities or issues. Pt was given PT referral. Pt tried Tylenol w/ out relief. CP no relief but heat made it worse. Home Environment: Lives w/ boyfriend in 2nd floor apartment w/out elevators. W/D are in basement. Pt is on disability d/t learning disorder. R hand dominant. Prior Level of Function: Unable to assess d/t chronic nature of hip pain. Pt is unaware of any injuries. Current Functional Limitations: Reported by Patient Unable to exercise for general health, when pain is bad she is unable to walk, difficulty squatting d/t no leg strength. Pt helps sister who has Parkinson's disease w/ household IADL's and when walking. Is the patient at Risk for Falls: No Pain: Pain location(s) Currently has no hip pain in either hip. When present rates pain to be 8/10 on VAS. Pt tends to rest and use of Advil seems to help temporarily. OBJECTIVE General Observations/Posture/Comments: Valgus deformities B, R>L. Walks w/ B hips IR'd. Gait non-antalgic at this time. General/Functional Assessments/Extremity Assessments: LE MMT Right Left Hip flexion 4/5 4/5 Hip extension 5/5 5/5 Hip abduction 4-/5 4-/5 Hip adduction 5/5 5/5 Hip IR 5/5 5/5 Hip ER 4/5 4/5 Lower abd/TA=3/5, L quad=5/5, R=5/5. L HS=4/5, R=4/5. B PF=4-/5. LE ROM AROM Right AROM Left PROM Right PROM Left Hip flexion (0-120) WNL WNL WNL WNL Hip extension (0-30) WNL WNL WNL WNL Hip abduction (0-45) WNL WNL WNL WNL Hip adduction (0-45) WNL WNL WNL WNL Hip IR (0-45) WNL WNL WNL WNL Hip ER (0-45) WNL WNL WNL WNL Poor technique for sup<->sit transfers and no log rolling noted. Palpation: Pt had TTP at L TFL and mid way down L ITB. This is her familiar pain. Special Tests: Not tested at this time. HEP of TA isometrics, supine HS stretches, Wig Wags and side lying hip abduction all to include demo and trial. Written instructions issued and reviewed w/ pt and pt's SO per pt's request. Answered questions to pt's satisfaction at this time. ASSESSMENT: IE completed this visit. Rehabilitation Potential: Rehab Potential: Condition Has Potential to Improve Olivia Jacome is a 58 y.o. female presenting for outpatient physical therapy evaluation with complaints of B hip pain and lateral thigh pain. Skilled Physical therapy is medically necessary to reach PTgoals, improve ROM, strength, function and pain levels Learning Needs: Were Patient Learning needs assessed: Yes Learning Preferences: Explanation and Printed Materials Barriers to Learning: Other: Learning disability. Patient Education: [x] Discussed, with patient and/or caregiver, the recommended plan of care/goals, the importance oftherapy and appointment compliance in order to achieve goals in a timely manner. GOALS Goals Addressed This Visit's Progress LTG's 12 visits (pt-stated) Pt will I demonstrate proper technique for sup<->sit transfers in 5/5 trials. Pt will be Independent and compliant with final HEP. Pt will return to exercising 3 times/ week or more w/out increased hip pain. Pt will demonstrate lower abd/TA strength of 4-/5 or better to increase tolerance to IADL's. STG's 6 weeks (pt-stated) Pt will perform correct technique for sup<->sit transfers w/ min VC's in 5/5 trials. Pt is Independent and compliant with initial HEP. Pt will return to exercising 2 times/ week w/out increased hip pain. Pt will demonstrate lower abd/TA strength of 3+/5 or better to increase tolerance to IADL's. PLAN POC Development/Review: Initial Evaluation; Participants: Patient Skilled Therapy Plan Required: YES- Reasons for Rehab and Medical Necessity -- Reduce Need for Assist with Functional Activity/ADL's/Mobility Planned Therapy Interventions: Cold Pack, E-Stim -- Unattended, Kinesiotaping, Manual Therapy, Neuromuscular Re-education, Patient / Family Education, Therapeutic Activity, and Therapeutic Exercise Skilled PT recommended at a freq of 2x/week for 12 visits. Recommended Consults: none Equipment Recommended: none; Equipment Provided: none BILLING TOTAL TREATMENT TIME: 60 Minutes Evaluation Medium Complexity Justification ::: A history of present problem with 1 - 2 personal factors and/or co-morbidities that impact the plan of care and An examination of body systems using standardized tests and measures in addressing a total of 3 or more elements from any of the following body structures and functions, activity limitations, and/or participation restrictions Documentation completed by Jayden Archuleta PT OUTPATIENT [address] Dept: [phone] Dept PATIENT NAME: Olivia Jacome : 1965 Certification: This is to certify that the above named patient, who is under my care, requires skilled Therapy services as described in the above treatment plan. I further certify that the services outlined in this plan are skilled and medically necessary. I have reviewed this plan for rehabilitation services, and I recommend that these services continue to meet the above stated goals and plan. SIGNATURE: DATE Farzana Herring MD Referring provider documented in this encounter Plan of Treatment Upcoming Encounters Date Type Department Care Team (Late st Contact Info) Description 05/25/2024 10:00 AM EST Treatment Outpatient Rehabilitation - [address] [phone] Sangeeta Epstein, STAVE SAW OPERATOR 05/29/2024 10:00 AM EST Treatment Outpatient Rehabilitation [address] [phone] Sangeeta Epstein, STAVE SAW OPERATOR 06/01/2024 10:00 AM EST Treatment Outpatient Rehabilitation [address] [phone] Sangeeta Epstein, STAVE SAW OPERATOR 06/05/2024 10:00 AM EST Treatment Outpatient [address] [place] [phone] Sangeeta Epstein, STAVE SAW OPERATOR 06/08/2024 10:30 AM EST Treatment Outpatient Rehabilitation [address] [phone] Jayden Archuleta, W[place] 10/28/2024 8:30 AM EDT Office Visit [address] [phone] Farzana Herring MD [address] [place], [place] 02/05/2025 3:00 PM EDT Office Visit [address] [phone] Farzana Herring MD [address] [place], [place] documented as of this encounter Goals Goal Patient Goal Type Associated Problems Recent Progress Patient-Stated? Author STG's 6 weeks General Yes Jayden Archultea, PT Note: Pt will perform correct technique for sup<->sit transfers w/ min VC's in 5/5 trials. Pt is Independent and compliant with initial HEP. Pt will return to exercising 2 times/ week w/out increased hip pain. Pt will demonstrate lower abd/TA strength of 3+/5 or better to increase tolerance to IADL's. LTG's 12 visits General Yes Jayden Archuleta, PT Note: Pt will I demonstrate proper technique for sup<->sit transfers in 5/5 trials. Pt will be Independent and compliant with final HEP. Pt will return to exercising 3 times/ week or more w/out increased hip pain. Pt will demonstrate lower abd/TA strength of 4-/5 or better to increase tolerance to IADL's. documented as of this encounter Visit Diagnoses Not on filedocumented in this encounter Care Teams Fireproof Door Maker Relationship Specialty Start Date End Date Farzana Herring MD [address] [place] [address] PCP - General Internal Medicine 04/23/24 documented as of this encounter
--- OUTSIDE RECORDS SUMMARY | 2024-05-22 08:04 | XMS_ITS | Encounter Summary ---
Author Organization [facility] Address [address] [place] [address] Care Team Providers Care Patient Accounting Representative Name Role Phone Farzana Herring MD Primary Care Provider [phone] Reason for Referral * Consultation (Routine) - Pending Review Specialty Diagnoses / Procedures Referred By Contact Referred To Contact Physical Medicine and Rehabilitation Diagnoses Lumbosacral radiculopathy Luis Felipe Raman DPM [address] [address] Referral ID Status Reason Start Date Expiration Date Visits Requested Visits Authorized [id number] Pending Review Specialty Services Required 05/12/2024 05/12/2025 1 1 Reason for Visit * Reason Comments Foot Pain * Consultation (Routine) - Closed Specialty Diagnoses / Procedures Referred By Contrancho t Referred To Contact Podiatry Diagnoses Chronic pain of both feet Farzana Herring MD [address] [place] [id number] Luis Felipe Raman DPM [address] [address] Referral ID Status Reason Start Date Expiration Date V isits Requested Visits Authorized [id number] Closed Specialty Services Required 04/30/2024 04/30/2025 1 1 Encounter Details Date Type Department Care Team ([facility] st Contact Info) Description 05/12/2024 3:00 PM EST Consult Orthopedic Surgery - [place] [address] 175 [facility] [address] [place] [id number] Luis Felipe Raman DPM 175 [facility] [address] [place] [address] Chronic pain of both feet (Primary Dx); Lumbosacral radiculopathy; Pes planus of both feet; Metatarsalgia of left foot Social History Tobacco Use Types Packs/Day Years [...] Sign Reading Time Taken Comments Blood Pressure - - Pulse - - Temperature - - Respiratory Rate - - Oxygen Saturation - - Inhaled Oxygen Concentration - - Weight 74.8 kg (165 lb) 05/12/2024 2:43 PM EST Height 162.6 cm (5' 4 ) 05/12/2024 2:43 PM EST Body Mass Index 28.32 05/12/2024 2:43 PM EST documented in this encounter Ordered Prescriptions Prescription Sig Dispensed Refills Start Date End Da te meloxicam (Mobic) 15 mg tablet Take 1 tablet (15 mg total) by mouth 1 (one) time each day. 30 tablet 05/12/2024 06/11/2024 documented in this encounter Progress Notes * Luis Felipe Raman DPM - 05/12/2024 3:00 PM EST Referring MD: Farzana Herring MD Last PCP visit: 04/30/2024 IDENTIFIER: @TITLE@ Naa is a 58 y.o. year old female who presents for consultation. CC: Bilateral foot pain HPI: 58-year-old female presents office chief complaint of bilateral foot pain. Patient notes that she has been having chronic pain worsening at night when she is lying in bed. Patient notes that she doeshave some soreness in the midfoot from time to time after standing for prolonged periods. Patient wears supportive shoes. Patient does not use orthotics. Patient recently started going to physical therapy for tightness within the hips which is causing pain into the upper leg and around the calf. Patient notes she has a history of lower back pathology but has not been undergoing treatment for it. ROS: GENERAL: Pt denies nausea, fever, vomiting, chills, or shortness of breath. Pt in NAD. CARDIOLOGY: pt denies chest pain, palpitations LUNGS: pt denies shortness of breath MUSCULOSKELETAL: See HPI, otherwise no joint pain or swelling, back pain, or muscle pain. SKIN: see HPI, otherwise no lesions, rash or itching NEURO: No persistent headache, weakness or numbness The remainder of the review of systems is noncontributory PAST MEDICAL HISTORY: Patient Active Problem List Diagnosis Allergy Hyperglycemia Hypothyroidism Pure hypercholesterolemia Overweight (BMI 25.0-29.9) Chronic pain of both hips SOCIAL HISTORY: Social History Tobacco Use Smoking status: Never Smokeless tobacco: Never Substance Use Topics Alcohol use: Never ACTIVE MEDICATIONS: No outpatient medications have been marked as taking for the 05/12/24 encounter (Consult) with Luis Felipe Raman DPM. ALLERGIES: @ALL@ PHYSICAL EXAM: Height 1.626 m (64 ), weight 74.8 kg (165 lb). PODIATRIC EXAMINATION: GENERAL: Patient appears well nourished, with NAD. VASCULAR: Dorsalis pedis pulses are 2/4 bilaterally and Posterior tibial pulses are 2/4 bilaterally. Capillary filling time within normal limits the digits. No pallor on elevation or rubor on dependency. Positive hair growth. No varicosities. Denies rest pain or claudication pain. NEUROLOGICAL: Sharp/dull sensation intact, protective sensation intact on [place]. Peripheral neuropathy throughout the feet bilaterally. ORTHOPEDIC: Good muscle strength 5/5 of all flexors and extensors. Dorsi flexion of ankle ,10 degrees, plantar flexion WNL. No muscle atrophy. Diffuse pain to the plantar aspect of the foot without severe tenderness at point palpation of the metatarsal heads. Arthritic changes to the digits. Flexible flatfoot deformity bilaterally. DERMATOLOGICAL:.No masses or skin lesions noted. Normal skin temperature, normal skin turgor. BIOMECHANICS: STJ ROM wnl, MTJ ROM wnl, 1st MPJ ROM wnl. IMAGING: No fractures or dislocations. Joint space narrowing through the midtarsal joint. Decreasedcalcaneal inclination angle with anterior break in the cyma line. IMPRESSION: 1. Chronic pain of both feet 2. Lumbosacral radiculopathy 3. Pes planus of both feet 4. Metatarsalgia of left foot PLAN: Pt was seen and examined, history reviewed. Patient with findings of radiculopathy to bilateral feet. Patient was educated on how the lumbar spine and rest with the nerves that go to the lower legs. Patient is currently going to a livestock trucker and increasing mobility through the hips lower than the upper legs as well as the calf muscles. Patient instructed to continue with physical therapy to provide better range of motion and decrease strain on the nerves of the lower back and legs. Patient was referred to physiatry for further workup oflower back pathology Patient also has findings of pes planus bilaterally which with a collapsing midfoot due to flexibility Patient's shoes were evaluated and handout was given explaining correct shoe gear that would help in supporting the midfoot Orthotic suggestions were given and the specific model was handed to the patient to be purchased Break-in period was defined and patient was educated on as there can be increased pain in the process of getting used to an orthotic in her shoe Biomechanics were reviewed with patient and how this flexible flatfoot deformity is affecting her ability to walk and causing increased strain on other joints of the foot Patient showed verbal and adequate understanding Patient with mild complaints of discomfort to the balls of their feet. Clinical exam confirm that its likely secondary to fat pad atrophy. Patient would benefit from additional cushion to help redistribute the pressure to the central portion of the foot. Patient shown different offloading measures (metatarsal pads). Luis Felipe Raman DPM documented in this encounter Plan of Treatment Upcoming Encounters Date Type Department Care Team (Late st Contact Info) Description 05/25/2024 10:00 AM EST Treatment Outpatient Rehabilitation - [address] [phone] Sangeeta Epstein PTA 05/29/2024 10:00 AM EST Treatment Outpatient Rehabilitation - [address] [phone] Sangeeta Epstein PTA 06/01/2024 10:00 AM EST Treatment Outpatient Rehabilitation [address] [phone] Sangeeta Epstein, RESIDENCE LEASING AGENT 06/05/2024 10:00 AM EST Treatment Outpatient [address] [phone] Sangeeta Epstein, RESIDENCE LEASING AGENT 06/08/2024 10:30 AM EST Treatment Outpatient [address] [phone] Jayden Archuleta, PT 10/28/2024 8:30 AM EDT Office Visit Adult [address] [phone] Farzana Herring MD [address] [place], [place] 02/05/2025 3:00 PM EDT Office Visit [address] [phone] Farzana Herring MD [address] [place], [place] Scheduled Referrals Name Type Priority Associated Diagnoses Orde r Schedule Ambulatory referral to Physical Medicine Rehab Outpatient Referral Routine Lumbosacral radiculopathy 1 Occurrences starting 05/12/2024 until 05/12/2025 documented as of this encounter Goals Goal Patient Goal Type Associated Problems Recent Progress Patient-Stated? Author STG's 6 weeks General Yes Jayden Archuleta, PT Note: Pt will perform correct technique [...] documented as of this encounter Visit Diagnoses Diagnosis Chronic pain of both feet- Primary Lumbosacral radiculopathy Thoracic or lumbosacral neuritis or radiculitis, unspecified Pes planus of both feet Metatarsalgia of left foot documented in this encounter Orders Outpatient Referral Count Last Ordered Date Fir st Ordered Date AMB REFERRAL TO PODIATRY 05/12/2024 documented in this encounter Care Teams Patient Accounting Representative Relationship Specialty Start Date End Date Farzana Herring MD [address] [place] [address] PCP - General Internal Medicine 04/23/24 documented as of this encounter
--- OUTSIDE RECORDS SUMMARY | 2024-05-22 08:04 | XMS_ITS | Encounter Summary ---
Author Organization [facility] Address [address] [place] [address] Care Team Providers Care Cabinet And Trim Installer Name Role Phone Farzana Herring MD Primary Care Provider [phone] Reason for Visit * Reason Onset Date Comments Back Pain 04/23/2024 Encounter Details Date Type Department Care Team ([facility] Contact Info) Description 04/23/2024 Telephone Adult Medicine [facility] [place] [address] [place] [address] Farzana Herring MD [address] [place] [address] Back Pain Social History Tobacco Use Types Packs/Day Years [...] as of this encounter Progress Notes * Bella Rush RN - 04/23/2024 12:59 PM EST Called and spoke with pt. Pt c/o lower back pain for 5 years now, denies any recent changes in pain. Pt sts went to PT about a year ago and really helped with pain. Gets spasms in buttocks and both legs to calves. No numbness no loss of urinary or bowel control no known recent injury. Pt sts a transfer pt no new last seen but adult med 10/29/23. Appt for 04/30 with pcp for back pain advised to needs to keep appt in oct also for PE/DATABASE DEVELOPER appt * Scarlet Satya - 04/23/2024 11:56 AM EST Patient call requires triage: Symptoms patient is presenting: back pain - not mva or w/c - patient new to Dr Herring and has new patient visit in 01/2025 How long has patient had these symptoms?: worsening over past few weeks For ALL patients calling to schedule any appointment (routine, sick visit, follow up, consult, etc.) in the outpatient setting please ask the following questions: Do you have fever of higher than 101, sore throat with difficulty swallowing or severe shortness ofbreath? no If YES to any of these above symptoms, send a message to triage and do not book. Red dot. If no, an audio or video visit should be booked. Have you had close contact with someone with Coronavirus in the last 14 days? no Have you traveled abroad? no Have you traveled recently to another state outside of [place], [place], [place], [place], [place], [place], [place]? no o If yes, did you quarantine for 14 days or have a negative covid test? no If yes to any of the above, patient is not to be scheduled in office until after 14 day quarantine or negative covid test. If pain or injury related was it due to an accident at work or from a motor vehicle accident? If yes, date of accident/Injury: No If yes, gather 3rd democrat insurance information Third Libertarian Information: not applicable PCP: Farzana Herring MD Payor: / No coverage found. documented in this encounter Plan of Treatment Upcoming Encounters Date Type Department Care Team (Late st Contact Info) Description 05/25/2024 10:00 AM EST Treatment Outpatient Rehabilitation - [address] [phone] Sangeeta Epstein PTA 05/29/2024 10:00 AM EST Treatment Outpatient Rehabilitation - [address] [phone] Sangeeta Epstein, SACK DEPARTMENT SUPERVISOR 06/01/2024 10:00 AM EST Treatment Outpatient [address] [phone] Sangeeta Epstein, SACK DEPARTMENT SUPERVISOR 06/05/2024 10:00 AM EST Treatment Outpatient [address] [phone] Sangeeta Epstein, SACK DEPARTMENT SUPERVISOR 06/08/2024 10:30 AM EST Treatment Outpatient [address] [phone] Jayden Archuleta, PT 10/28/2024 8:30 AM EDT Office Visit Adult [address] [phone] Farzana Herring MD [address] [place], [place] 02/05/2025 3:00 PM EDT Office Visit Adult [address] [phone] Farzana Herring MD [address] [place], [place] documented as of this encounter Visit Diagnoses Not on filedocumented in this encounter Care Teams Cabinet And Trim Installer Relationship Specialty Start Date End Date Farzana Herring MD [address] [place], [place] PCP - General Internal Medicine 04/23/24 documented as of this encounter
--- OUTSIDE RECORDS SUMMARY | 2024-05-22 08:04 | XMS_ITS | Encounter Summary ---
Author Organization [facility] Address [address] [place] [address] Care Team Providers Care Traffic Investigator Name Role Phone Farzana Herring MD Primary Care Provider [phone] Reason for Visit * Consultation (Routine) - Authorized Specialty Diagnoses / Procedures Referred By Pablito correa Referred To Contact Physical Therapy Diagnoses Chronic pain of both hips Farzana Herring MD [address] [place] [id number] Referral ID Status Reason Start Date Expiration Date Visits Requested Visits Authorized [id number] Authorized Specialty Services Required 04/30/2024 04/30/2025 13 13 Encounter Details Date Type Department Care Team (Latest Contact Info) Description 05/11/2024 10:30 AM EST Evaluation Outpatient Rehabilitation [address] [phone] Jayden Archuleta, PT Chronic pain of both hips (Primary Dx) Social History Tobacco Use Types Packs/Day Years [...] of this encounter Progress Notes * Jayden Archuleta PT - 05/11/2024 10:30 AM EST Images from the original note were not included. [facility] - Outpatient PHYSICAL THERAPY EVALUATION Date: 05/11/2024 Visit Number: 1 Patient Name: Olivia Jacome : 1965 Age: 58 y.o. Gender: female Diagnosis: ICD-10-CM ICD-9-CM 1. Chronic pain of both hips M25.551 719.45 Ambulatory referral to Physical Therapy and Athletic Training M25.552 338.29 G89.29 Date of Onset/Surgery: 05/11/2021 Referring Provider: Farzana Herring MD Insurance: Payor: UNITED [employer] MEDICARE / Plan: LIFE1 [employer] MEDICARE ADVANTAGE / Product Type: *No Product type* / Patient identified by: Jayden Archuleta PT Language: Speaks and understands Citizen Of [place] as preferred language with no finger lift operator required Chart Reviewed: Yes Medications: Current Outpatient [...] (Patient not taking: Reported on 04/30/2024) butalbit/acetamin/caff/codeine (ZKFOOODQYC-SKTPAWXMUK-EUF-COD ORAL) YMUHWSQTZW-TNQE-ICAI-COD OR Take by mouth cetirizine (ZyrTEC) 10 [...] restrictions Documentation completed by Jayden Archuleta PT [address] Dept: [phone] Dept PATIENT NAME: Olivia Jacome : 1965 [...] Description 05/25/2024 10:00 AM EST Treatment Outpatient [address] [phone] Sangeeta Epstein PTA 05/29/2024 10:00 AM EST Treatment Outpatient Rehabilitation - [address] [phone] Lucian Sangeeta, OPTICAL MODEL MAKER AND TESTER 06/01/2024 10:00 AM EST Treatment Outpatient Rehabilitation - [address] [phone] Sangeeta Epstein, OPTICAL MODEL MAKER AND TESTER 06/05/2024 10:00 AM EST Treatment Outpatient Rehabilitation - [address] [phone] Gilbertodara Sangeeta, OPTICAL MODEL MAKER AND TESTER 06/08/2024 10:30 AM EST Treatment Outpatient [facility] - [address] [phone] Jayden Archuleta, PT 10/28/2024 8:30 AM EDT Office Visit Adult [address] [phone] Farzana Herring MD [address] [place], [place] 02/05/2025 3:00 PM EDT Office Visit [address] [phone] Farzana Herring MD [address] [place], [place] documented as of this encounter Goals [...] Visit Diagnoses Diagnosis Chronic pain of both hips- Primary documented in this encounter Orders Outpatient Referral Count Last Ordered Date Fir st Ordered Date AMB REFERRAL TO PHYSICAL [facility] TRA[facility]ING 1 05/11/2024 documented in this encounter Care Teams Traffic Investigator Relationship Specialty Start Date End Date Farzana Herring MD [address] [place] [address] PCP - General Internal Medicine 04/23/24 documented as of this encounter
--- OUTSIDE RECORDS SUMMARY | 2024-05-22 08:04 | XMS_ITS | Encounter Summary ---
Author Organization [facility] Address [address] [place] [address] Care Team Providers Care Commercial Baker Helper Name Role Phone Farzana Herring MD Primary Care Provider [phone] Reason for Visit * Consultation (Routine) - Authorized Specialty Diagnoses / Procedures Referred By Pablito correa Referred To Contact Physical Therapy Diagnoses Chronic pain of both hips Farzana Herring MD [address] [place] [address] Referral ID Status Reason Start Date Expiration Date Visits Requested Visits Authorized [id number] Authorized Specialty Services Required 04/30/2024 04/30/2025 13 13 Encounter Details Date Type Department Care Team ([facility] Contact Info) Description 05/18/2024 11:00 AM EST Treatment Outpatient Rehabilitation [address] [phone] Sangeeta Epstein PTA Chronic pain of both hips (Primary Dx) [...] as of this encounter Progress Notes * Sangeeta Epstein PTA - 05/18/2024 11:00 AM EST [facility] - Outpatient PHYSICAL THERAPY DAILY TREATMENT NOTE - OP Date: 05/18/2024 Visit Number: 3 Patient Name: Olivia Jacome : 1965 Age: 58 y.o. Gender: female Diagnosis: ICD-10-CM ICD-9-CM 1. Chronic pain of both hips M25.551 719.45 M25.552 338.29 G89.29 Date of Onset/Surgery: 05/11/2021 Referring Provider: Farzana Herring MD Insurance: Payor: UNITED HE[employer] MEDICARE / Plan: [address] MEDICARE ADVANTAGE / Product Type: *No Product type* / Patient Identified by: Sangeeta Epstein PTA Language: Hungarian Medications: Current Outpatient Medications on File Prior [...] (Patient not taking: Reported on 04/30/2024) butalbit/acetamin/caff/codeine (KYLLVQVDJU-KDYIVEJOAX-ACQ-COD ORAL) JQBSDMKQVO-GLKM-EEQC-COD OR Take by mouth cetirizine (ZyrTEC) 10 [...] if needed for allergies. 90 each 1 meloxicam (Mobic) 15 mg tablet Take 1 tablet (15 mg total) by mouth 1 (one) time each day. 30 tablet 0 OMEPRAZOLE ORAL Take by mouth. No current facility-administered medications on file prior to visit. Allergies: is allergic to amoxicillin, other, and sulfa (sulfonamide antibiotics). Precautions: Fall risk: No Patient/Caregiver Goals: SUBJECTIVE Subjective Report: I was helping my sister clean out her closet on Saturday, and after doing that my legs were hurting really bad, especially the left one. The pain lasted for about 3 days. Chart Reviewed: Yes Pain No pain now OBJECTIVE TREATMENT INTERVENTION: Modalities: None performed Procedures: Nustep x5 min Seated piriformis stretch 30 secs x3 HEP Hip flexor stretch with leg hanging off table with strap 30 sec x3 HEP HL clam 3x10 with GTB Bridges 3x10 Seated hip IR with GTB and foam roll squeeze 2x10 Educated on return to gym HEP of TA isometrics, supine HS stretches, Wig Wags and side lying hip abduction, Seated piriformisstretch, Supine hip flexor stretch. ASSESSMENT/Response to Treatment Good . Pt given HEP with printed handout. Discussed floor transfers with sister and having her sister's PT train them on correct movement. Patient Education: Education provided: Yes Education Provided To: Patient utilizing Explanation and Demonstration mode(s) of education Response to Education: Applied Knowledge and Verbal Understanding PLAN POC Development/Review: No Change in the Plan of Care; Participants: Patient Total Treatment Time: 30 Modalities: Therapeutic procedures: Documentation completed by Sangeeta Epstein PTA documented in this encounter Plan of Treatment Upcoming Encounters Date Type Department Care Team (Late st Contact Info) Description 05/25/2024 10:00 AM EST Treatment Outpatient Rehabilitation [address] [phone] Sangeeta Epstein PTA 05/29/2024 10:00 AM EST Treatment Outpatient Rehabilitation [address] [phone] Sangeeta Epstein PTA 06/01/2024 10:00 AM EST Treatment Outpatient Rehabilitation [address] [phone] Sangeeta Epstein PTA 06/05/2024 10:00 AM EST Treatment Outpatient Rehabilitation [address] [phone] GilbertoSangeeta diamond, SUPERVISOR COMMERCIAL FISH HATCHERY 06/08/2024 10:30 AM EST Treatment Outpatient Rehabilitation - [address] [phone] Jayden Archuleta, PT 10/28/2024 8:30 AM EDT Office Visit [address] [phone] Farzana Herring MD [address] [place], [place] 02/05/2025 3:00 PM EDT Office Visit [address] [phone] Farzana Herring MD [address] [place], [place] documented as of this encounter Goals [...] both hips- Primary documented in this encounter Care Teams Commercial Baker Helper Relationship Specialty Start Date End Date Farzana Herring MD [address] [place] [address] PCP - General Internal Medicine 04/23/24 documented as of this encounter
--- OUTSIDE RECORDS SUMMARY | 2024-05-22 08:04 | XMS_ITS | Encounter Summary ---
Author Organization [facility] Address [address] [place] [address] Care Team Providers Care Night Patrol Inspector Name Role Phone Farzana Herring MD Primary Care Provider [phone] Reason for Visit * Consultation (Routine) - Authorized Specialty Diagnoses / Procedures Referred By Pablito correa Referred To Contact Physical Therapy Diagnoses Chronic pain of both hips Farzana Herring MD [address] [place] [address] Referral ID Status Reason Start Date Expiration Date Visits Requested Visits Authorized [id number] Authorized Specialty Services Required 04/30/2024 04/30/2025 13 13 Encounter Details Date Type Department Care Team ([facility] Contact Info) Description 05/13/2024 10:00 AM EST Treatment Outpatient [address] [phone] Sangeeta Epstein PTA Chronic pain of both [...] Progress Notes * Sangeeta Epstein PTA - 05/13/2024 10:00 AM EST [facility] - Outpatient PHYSICAL THERAPY DAILY TREATMENT NOTE - OP Date: 05/13/2024 Visit Number: 2 Patient Name: Olivia Jacome : 1965 Age: 58 y.o. Gender: female Diagnosis: ICD-10-CM ICD-9-CM 1. Chronic pain of both hips M25.551 719.45 M25.552 338.29 G89.29 Date of Onset/Surgery: 05/11/2021 Referring Provider: Farzana Herring MD Insurance: Payor: UNITED HEALTHCARE MEDICARE / Plan: [address] MEDICARE ADVANTAGE / Product Type: *No Product type* / Patient Identified by: Sangeeta Epstein PTA Language: Barbadian Medications: Current Outpatient Medications on File Prior [...] (Patient not taking: Reported on 04/30/2024) butalbit/acetamin/caff/codeine (MYJPWINCGN-CDYHIIHIOP-YZK-COD ORAL) [id number]-ZKOT-HJHT-COD OR Take by mouth cetirizine (ZyrTEC) 10 [...] risk: No Patient/Caregiver Goals: SUBJECTIVE Subjective Report: The pills that my doctor gave me are giving me insomnia, I don't want to take them. Chart Reviewed: Yes Pain No pain OBJECTIVE TREATMENT INTERVENTION: Modalities: None performed Procedures: Seated piriformis stretch 30 secs x3 Hip flexor stretch off with strap 30 sec x3 HL clam 2x10 Bridges 2x10 Seated hip IR with GTB and foam roll squeeze 2x10 ASSESSMENT/Response to Treatment Good Good compliance with HEP. Pt had c/o of discomfort in B glutes, added piriformis stretch with good response. Pt educated on ways to reduce inflammation through diet. Patient Education: Education provided: Yes Education Provided [...] 10:00 AM EST Treatment Outpatient Rehabilitation - [address] [phone] Sangeeta Epstein, POTATO CHIP PROCESSING SUPERVISOR 05/29/2024 10:00 AM EST Treatment Outpatient Rehabilitation [address] [phone] Sangeeta Epstein, POTATO CHIP PROCESSING SUPERVISOR 06/01/2024 10:00 AM EST Treatment Outpatient Rehabilitation - [address] [phone] Sangeeta Epstein, POTATO CHIP PROCESSING SUPERVISOR 06/05/2024 10:00 AM EST Treatment Outpatient Rehabilitation - [address] [phone] Sangeeta Epstein, POTATO CHIP PROCESSING SUPERVISOR 06/08/2024 10:30 AM EST Treatment Outpatient Rehabilitation [address] [phone] Jayden Archuleta, PT 10/28/2024 8:30 AM EDT Office Visit [facility] [address] [place] [phone] Farzana Herring MD [address] [place] 02/05/2025 3:00 PM EDT Office Visit [facility] [address] [place] [phone] Farzana Herring MD [address] [place] documented as of this encounter Goals Goal Patient Goal Type Associated Problems Recent Progress Patient-Stated? Author STG's 6 weeks General Yes Jayden Archuleta PT Note: Pt will perform correct technique for sup<->sit transfers w/ min VC's in 5/5 trials. Pt is Independent and compliant with initial HEP. Pt will return to exercising 2 times/ week w/out increased hip pain. Pt will demonstrate lower abd/TA strength of 3+/5 or better to increase tolerance to IADL's. LTG's 12 visits General Yes Jayden Archuleta PT Note: Pt will I demonstrate proper [...] Primary documented in this encounter Care Teams Night Patrol Inspector Relationship Specialty Start Date End Date Farzana Herring MD [address] [place] PCP - General Internal Medicine 04/23/24 documented as of this encounter
--- OUTSIDE RECORDS SUMMARY | 2024-05-22 08:04 | XMS_ITS | Clinical Summary ---
Author Organization [address] Address [address] [place] [phone] Phone Care Team Providers Care Assembling Motor Builder Name Role Phone Farzana Herring MD Primary Care Provider [phone] Allergies Active Allergy Reactions Criticality Noted Date Comments Amoxicillin 06/14/2023 Other 05/16/2023 Flu Virus Vaccine Sulfa (Sulfonamide Antibiotics) 04/2023 Sulfa Drugs Medications Medication Sig Dispensed Refills Start Date End Date Status azelastine (ASTELIN) 137 mcg (0.1 %) nasal spray 2 Sprays by Each Nare route 2 times daily. Use in each nostril as directed 07/18/2023 Active biotin 1 mg capsule Take by mouth. Active butalbit/acetami n/caff/codeine (BUTALBITAL-ACET [id number] ORAL) BUTALBITAL-AP AP-CAFF-COD OR Take by mouth Active cetirizine (ZyrTEC) 10 mg capsule Take by mouth. Active levothyroxine (SYNTHROID, LEVOTHROID) 25 mcg tablet Take 1 Tablet by mouth daily. Active escitalopram (Lexapro) 20 mg tablet Take 1 Tablet by mouth daily. 10/29/2023 Active OMEPRAZOLE ORAL Take by mouth. Active atorvastatin (LIPITOR) 10 mg tablet Take 1 tablet (10 mg total) by mouth 1 (one) time each day. 90 tablet 1 04/30/2024 Active acetaminophen (Tylenol 8 Hour) 650 mg 8 hr tablet Take 1 tablet (650 mg total) by mouth every 8 (eight) hours if needed for mild pain. Do not crush, chew, or split. 60 tablet 2 04/30/2024 Active loratadine (CLARITIN) 10 mg tablet Take 1 tablet (10 mg total) by mouth 1 (one) time each day if needed for allergies. 90 each 1 04/30/2024 Active meloxicam (Mobic) 15 mg tablet Take 1 tablet (15 mg total) by mouth 1 (one) time each day. 30 tablet 05/12/2024 Active atorvastatin (LIPITOR) 10 mg tablet Take 1 tablet (10 mg total) by mouth 1 (one) time each day. 90 tablet 1 03/23/2024 5 Discontinued(Reor tere) atorvastatin (LIPITOR) 10 mg tablet Take 1 tablet (10 mg total) by mouth 1 (one) time each day. 90 tablet 04/30/2024 5 Discontinued Active Problems Problem Noted Date Diagnosed Date Overweight (BMI 25.0-29.9) 04/30/2024 Chronic pain of both hips 04/30/2024 Allergy 06/14/2023 Hyperglycemia 06/14/2023 Hypothyroidism 06/14/2023 Pure hypercholesterolemia 06/14/2023 Encounters Date Type Department Care Team Description 05/18/2024 11:00 AM EST Treatment Outpatient Rehabilitation [address] [phone] Sangeeta Epstein PTA Chronic pain of both hips (Primary Dx) 05/13/2024 10:00 AM EST Treatment Outpatient [address] [place] [address] [phone] Sangeeta Epstein, WAREHOUSE EXAMINER Chronic pain of both hips (Primary Dx) 05/12/2024 3:00 PM EST Consult Orthopedic Surgery - [address] [phone] Luis Felipe Raman, DPM Chronic pain of both feet (Primary Dx); Lumbosacral radiculopathy; Pes planus of both feet; Metatarsalgia of left foot 05/11/2024 10:30 AM EST Evaluation Outpatient Rehabilitation [address] [phone] Jayden Archuleta, PT Chronic pain of both hips (Primary Dx) 05/11/2024 Plan of Care Documentation Outpatient Rehabilitation - [address] [phone] 04/30/2024 11:12 AM EST - 04/30/2024 11:59 PM EST Hospital Encounter [address] [phone] Chronic pain of both hips Discharge Disposition: Home or Self Care 04/30/2024 11:10 AM EST - 04/30/2024 11:59 PM EST Hospital Encounter [address] [phone] Chronic midline low back pain with bilateral sciatica Discharge Disposition: Home or Self Care 04/30/2024 11:00 AM EST - 04/30/2024 11:59 PM EST Hospital Encounter XRAY - [address] [phone] Chronic pain of both feet Discharge Disposition: Home or Self Care 04/30/2024 10:30 AM EST Office Visit Adult Medicine [address] [phone] Farzana Herring MD Hyperlipidemia, unspecified hyperlipidemia type (Primary Dx); Hypothyroidism, unspecified type; Chronic pain of both hips; Overweight (BMI 25.0-29.9); Chronic midline low back pain with bilateral sciatica; History of gestational diabetes; Family history of diabetes mellitus; Hyperglycemia; Chronic pain of both feet; Muscle spasm 04/23/2024 Telephone Adult Medicine [address] [phone] Farzana Herring MD Back Pain from Last 3 Months Medical History Medical History Date Comments Allergy DX:Allergy Hypothyroidism DX:Hypothyroidis m Pure hypercholesterolemia DX:Pur e hypercholesterolemia Social History Tobacco Use Types Packs/Day Years [...] file Not on file Not on file Obstetrics History Last Filed Vital Signs Vital Sign Reading [...] Mass Index 28.32 05/12/2024 2:43 PM EST Plan of Treatment Upcoming Encounters Date Type Department Care Team (Late st Contact Info) Description 05/25/2024 10:00 AM EST Treatment Outpatient Rehabilitation - [address] [phone] Sangeeta Epstein, WAREHOUSE EXAMINER 05/29/2024 10:00 AM EST Treatment Outpatient [facility] - [address] [phone] Sangeeta Epsetin, WAREHOUSE EXAMINER 06/01/2024 10:00 AM EST Treatment Outpatient [facility] - [address] [phone] Sangeeta Epstein, WAREHOUSE EXAMINER 06/05/2024 10:00 AM EST Treatment Outpatient [facility] - [address] [phone] Sangeeta Epstein, WAREHOUSE EXAMINER 06/08/2024 10:30 AM EST Treatment Outpatient [facility] - [address] [phone] Jayden Archuleta, PT 10/28/2024 8:30 AM EDT Office Visit Adult Medicine [address] [phone] Farzana Herring MD [address] [place] [address] 02/05/2025 3:00 PM EDT Office Visit Adult Medicine [facility] [address] [facility] [place] [phone] Farzana Herring MD [address] [place] [address] Health Maintenance Due Date Last Done Comments Breast Cancer Screening 1965 DTaP,Tdap,and Td Vaccines (1 - Tdap) 1984 Hepatitis B Vaccines (1 of 3 - 19+ 3-dose series) 1984 Cervical Cancer Screening: P ap Smear 1986 Zoster Vaccines (1 of 2) 06/29/2015 Colorectal Cancer Screening: Colonoscopy 11/08/2023 Depression Screening 11/08/2023 HIV Screening 11/08/2023 Medicare Annual Wellness Visit 11/08/2023 Social Influencers of Health Screening 11/08/2023 COVID-19 Vaccine (1 - 2023-2 5 season) 2023 Influenza Vaccine (#1) 2023 Cholesterol Screening (Lipid Panel) 05/11/2029 05/11/2024, 05/16/2023 Hepatitis C Screening Completed 05/16/2023 HIB Vaccines Aged Out No longer eligi ble based on patient's age to complete this topic HPV Vaccines Aged Out No longer eligi ble based on patient's age to complete this topic Hepatitis A Vaccines Aged Out No long er eligible based on patient's age to complete this topic IPV Vaccines Aged Out No longer eligi ble based on patient's age to complete this topic MMR Vaccines Aged Out No longer eligi ble based on patient's age to complete this topic Meningococcal ACWY Vaccine Aged Out N o longer eligible based on patient's age to complete this topic Pneumococcal Vaccine: Pediatrics (0 to 5 Years) and At-Risk Patients (6 to 64 Years) Aged Out No longer eligible b ased on patient's age to complete this topic RSV Immunization Patients Under 20 months Aged Out No longer eligible b ased on patient's age to complete this topic Varicella Vaccines Aged Out No longer eligible based on patient's age to complete this topic Goals Goal Patient Goal Type Associated Problems [...] or better to increase tolerance to IADL's. Procedures Procedure Name Priority Date/Time Associated Diagnosis Comments LIPID PANEL WITH REFLEX TO DIRECT LDL Routine 05/11/2024 10:08 AM EST Hyperlipidemia, unspecified hyperlipidemia type THYROID STIMULATING HORMONE WITH REFLEX TO FREE T4 AND FREE T3 Routine 05/11/2024 10:08 AM EST Hypothyroidism, unspecified type HEMOGLOBIN A1C Routine 05/11/2024 10:08 AM EST Hyperlipidemia, unspecified hyperlipidemia type Overweight (BMI 25.0-29.9) History of gestational diabetes Family history of diabetes mellitus Hyperglycemia COMPREHENSIVE METABOLIC PANEL Routine 05/11/2024 10:08 AM EST Muscle spasm MAGNESIUM Routine 05/11/2024 10:08 AM EST Muscle spasm PHOSPHORUS Routine 05/11/2024 10:08 AM EST Muscle spasm XR HIPS 5+ VIEWS WO OR W PELVIS BILAT Routine 04/30/2024 11:50 AM EST Chronic pain of both hips XR LUMBAR SPINE 4+ VIEWS Routine 04/30/2024 11:49 AM EST Chronic midline low back pain with bilateral sciatica XR FOOT 3+ VIEWS BILAT Routine 04/30/2024 11:48 AM EST Chronic pain of both feet HEPATITIS C SCREENING Routine 05/16/2023 from Last 3 Months or Most Recently Relevant to Health Maintenance Results * Thyroid stimulating hormone with reflex to free t4 and free t3 (05/11/2024 10:08 AM EST) Pathologist [facility] TSH 2.95 0.40 - 4.00 mcIU/mL LAB CHEMISTRY METHOD 05/11/2024 3:06 PM EST [facility] Blood Venous blood specimen / Unknown Venipuncture / Unknown 05/11/2024 10:08 AM EST 05/11/2024 10:08 AM EST Farzana Herring MD LAB BLOOD ORDERABLE S [facility] [address] [place] [address], [place] [phone] * (ABNORMAL) Lipid panel with reflex to direct LDL (05/11/2024 10:08 AM EST) Pathologist [facility] Cholesterol 207(H) 0 - 200 mg/dL LAB CHEMISTRY METHOD 05/11/2024 2:59 PM [facility] Triglycerides 145 0 - 150 mg/dL LAB CHEMISTRY METHOD 05/11/2024 2:59 PM EST [facility] HDL 49 >=40 mg/dL LAB CHEMISTRY METHOD 05/11/2024 2:59 PM [facility] LDL Calculated 129(H) 0 - 100 mg/dL LAB CHEMISTRY METHOD 05/11/2024 2:59 PM [facility] VLDL Cholesterol Rambo 29 mg/dL LAB CHEMISTRY METHOD 05/11/2024 2:59 PM [facility] Non HDL Chol. (LDL+VLDL) 158(H) <145 mg/dL LAB CHEMISTRY METHOD 05/11/2024 2:59 PM EST [facility] Chol/HDL Ratio 4.2 0.0 - 4.4 LAB CHEMISTRY METHOD 05/11/2024 2:59 PM EST [facility] Blood Venous blood specimen / Unknown Venipuncture / Unknown 05/11/2024 10:08 AM EST 05/11/2024 10:08 AM EST Farzana Herring MD LAB BLOOD ORDERABLE S Performing Organization Address City/[facility]/ZIP Co de Phone Number [facility] [address] [place] [address], * Phosphorus (05/11/2024 10:08 AM EST) Phosphorus 3.4 2.5 - 4.5 mg/dL LAB CHEMISTRY METHOD 05/11/2024 2:59 PM EST [facility] Blood Venous blood specimen / Unknown Venipuncture / Unknown 05/11/2024 10:08 AM EST 05/11/2024 10:08 AM EST Farzana Herring MD LAB BLOOD ORDERABLE S Performing Organization Address City/[facility]/ZIP Co de Phone Number [facility] [address] [place] [address], * Magnesium (05/11/2024 10:08 AM EST) Magnesium 2.1 1.9 - 2.6 mg/dL LAB CHEMISTRY METHOD 05/11/2024 2:59 PM EST [facility] Blood Venous blood specimen / Unknown Venipuncture / Unknown 05/11/2024 10:08 AM EST 05/11/2024 10:08 AM EST Farzana Herring MD LAB BLOOD ORDERABLE S [facility] [address] [place] [address], [place] [phone] * Hemoglobin A1c (05/11/2024 10:08 AM EST) [facility] Hemoglobin A1C 6.1 <6.5 % LAB CHEMISTRY METHOD 05/11/2024 1:57 PM [facility] Mean Bld Glu Estim. 128 mg/dL LAB CHEMISTRY METHOD 05/11/2024 1:57 PM [facility] Blood Venous blood specimen / Unknown Venipuncture / Unknown 05/11/2024 10:08 AM EST 05/11/2024 10:08 AM EST Farzana Herring MD LAB BLOOD ORDERABLE S [facility] [address] [place] [address], * (ABNORMAL) Comprehensive metabolic panel (05/11/2024 10:08 AM EST) [facility] Sodium 138 133 - 145 mmol/L LAB CHEMISTRY METHOD 05/11/2024 3:28 PM [facility] Potassium 4.9 3.5 - 5.5 mmol/L LAB CHEMISTRY METHOD 05/11/2024 3:28 PM [facility] Chloride 106 96 - 110 mmol/L LAB CHEMISTRY METHOD 05/11/2024 3:28 PM [facility] CO2 28 21 - 32 mmol/L LAB CHEMISTRY METHOD 05/11/2024 3:28 PM [facility] Anion Gap 4 3 - 11 LAB CHEMISTRY METHOD 05/11/2024 3:28 PM [facility] Glucose 137(H) 70 - 100 mg/dL LAB CHEMISTRY METHOD 05/11/2024 3:28 PM [facility] BUN 18 5 - 25 mg/dL LAB CHEMISTRY METHOD 05/11/2024 3:28 PM [facility] Creatinine 0.98 0.50 - 1.10 mg/dL LAB CHEMISTRY METHOD 05/11/2024 3:28 PM [facility] eGFR 67 >=60 mL/min/1. 73m2 LAB CHEMISTRY METHOD 05/11/2024 3:28 PM [facility] Comment:Calculation based on the??Chronic Kidney Disease Epidemiology Collaboration (CKD-EPI) equation refit??without adjustment for race. BUN/Creatinine Ratio 18.4 LAB CHEMISTRY METHOD 05/11/2024 3:28 PM [facility] Calcium 9.6 8.5 - 10.5 mg/dL LAB CHEMISTRY METHOD 05/11/2024 3:28 PM [facility] AST (SGOT) 47(H) 10 - 42 unit/L LAB CHEMISTRY METHOD 05/11/2024 3:28 PM [facility] ALT (SGPT) 68(H) 10 - 60 unit/L LAB CHEMISTRY METHOD 05/11/2024 3:28 PM [facility] Alkaline Phosphatase 126(H) 42 - 121 unit/L LAB CHEMISTRY METHOD 05/11/2024 3:28 PM [facility] Total Protein 7.0 6.0 - 8.0 g/dL LAB CHEMISTRY METHOD 05/11/2024 3:28 PM [facility] Albumin 4.1 3.2 - 5.0 g/dL LAB CHEMISTRY METHOD 05/11/2024 3:28 PM [facility] Total Bilirubin 0.4 0.0 - 1.4 mg/dL LAB CHEMISTRY METHOD 05/11/2024 3:28 PM [facility] Blood Venous blood specimen / Unknown Venipuncture / Unknown 05/11/2024 10:08 AM EST 05/11/2024 10:08 AM EST Farzana Herring MD [facility]LOOD [facility] [address] [place] [address], * XR Hips 5+ Views wo or w Pelvis bilat (04/30/2024 11:50 AM EST) Anatomical Region Laterality Modality Lower Extremities, Hip Bilateral Radiograp hic Imaging 04/30/2024 7:32 PM EST Impressions 04/30/2024 7:34 PM EST No hip abnormality identified. POS - [id number] -------- FINAL REPORT -------- Dictated By: Radha Nicholson Dictated Date: 04/30/2024 19:32 ET Assigned Physician: Radha Nicholson Reviewed and Electronically Signed By: Radha Nicholson Signed Date: 04/30/2024 19:34 ET Workstation ID: [id number] Transcribed By: Self Edit Transcribed Date: 04/30/2024 19:32 ET Narrative 04/30/2024 7:34 PM EST EXAM: Pelvic and bilateral hip x-ray. HISTORY: Chronic bilateral hip pain. COMPARISON: None VIEWS: AP view of the pelvis and AP and frog-lateral views of both hips performed. FINDINGS: ?? Hip joint spaces are maintained without significant periarticular spurring. ??No femoroacetabular impingement morphology identified. No evidence of an acute fracture or dislocation. ??Pelvic ring is intact. ??No destructive bone lesion. Procedure Note Radha Nicholson MD - 04/30/2024 EXAM: Pelvic and bilateral hip x-ray. HISTORY: Chronic bilateral hip pain. COMPARISON: None VIEWS: AP view of the pelvis and AP and frog-lateral views of both hipsperformed. FINDINGS: Hip joint spaces are maintained without significant periarticularspurring. No femoroacetabular impingement morphology identified. Noevidence of an acute fracture or dislocation. Pelvic ring is intact. Nodestructive bone lesion. IMPRESSION: No hip abnormality identified. POS - [id number] -------- FINAL REPORT -------- Dictated By: Radha Nicholson Dictated Date: 04/30/2024 19:32 ET Assigned Physician: Radha Nicholson Reviewed and Electronically Signed By: Radha Nicholson Signed Date: 04/30/2024 19:34 ET Workstation ID: [id number] Transcribed By: Self Edit Transcribed Date: 04/30/2024 19:32 ET Authorizing Provider Result Christiano Herring MD IMG XR PROCEDURES * XR Lumbar Spine 4+ Views (04/30/2024 11:49 AM EST) Anatomical Region Laterality Modality Spine, L-spine Radiographic Yahaira ging 04/30/2024 7:26 PM EST Impressions 04/30/2024 7:31 PM EST Multilevel degenerative changes. POS - [id number] -------- FINAL REPORT -------- Dictated By: Radha Nicholson Dictated Date: 04/30/2024 19:26 ET Assigned Physician: Radha Nicholson Reviewed and Electronically Signed By: Radha Nicholson Signed Date: 04/30/2024 19:31 ET Workstation ID: [id number] Transcribed By: Self Edit Transcribed Date: 04/30/2024 19:26 ET Narrative 04/30/2024 7:31 PM EST EXAM: Lumbar spine x-ray HISTORY: Chronic low back pain with bilateral sciatica. COMPARISON: 05/16/2023 FINDINGS: 4 views of the lumbar spine were performed. 5 lumbar type vertebral bodies. Minimal levoscoliosis of the lower spine. ??Vertebral body heights are maintained. ??Very mild disc space narrowing at L3-4 through L5-S1. ??Multilevel endplate spurring. ??No evidence of spondylolysis or spondylolisthesis. ??Facet arthropathy from L3-4 through L5-S1. Procedure Note Radha Nicholson MD - 04/30/2024 EXAM: Lumbar spine x-ray HISTORY: Chronic low back pain with bilateral sciatica. COMPARISON: 05/16/2023 FINDINGS: 4 views of the lumbar spine were performed. 5 lumbar type vertebral bodies. Minimal levoscoliosis of the lower spine.Vertebral body heights are maintained. Very mild disc space narrowing atL3-4 through L5- S1. Multilevel endplate spurring. No evidence ofspondylolysis or spondylolisthesis. Facet arthropathy from L3-4 throughL5-S1. IMPRESSION: Multilevel degenerative changes. POS - [id number] -------- FINAL REPORT -------- Dictated By: Radha Nicholson Dictated Date: 04/30/2024 19:26 ET Assigned Physician: Radha Nicholson Reviewed and Electronically Signed By: Radha Nicholson Signed Date: 04/30/2024 19:31 ET Workstation ID: [id number] Transcribed By: Self Edit Transcribed Date: 04/30/2024 19:26 ET Farazna Herring MD IMG XR PROCEDURES * XR Foot 3+ Views bilat (04/30/2024 11:48 AM EST) Anatomical Region Laterality Modality Lower Extremities, Foot Bilateral Radiogra phic Imaging 04/30/2024 7:34 PM EST Impressions 04/30/2024 7:39 PM EST Bilateral pes planus. ??Tiny bilateral calcaneal spurs. POS - [id number] -------- FINAL REPORT -------- Dictated By: Radha Nicholson Dictated Date: 04/30/2024 19:34 ET Assigned Physician: Radha Nicholson Reviewed and Electronically Signed By: Radha Nicholson Signed Date: 04/30/2024 19:39 ET Workstation ID: [id number] Transcribed By: Self Edit Transcribed Date: 04/30/2024 19:34 ET Narrative 04/30/2024 7:39 PM EST EXAM: Bilateral foot x-ray HISTORY: Chronic bilateral foot pain. COMPARISON: None FINDINGS: 3 weightbearing views of both feet were performed. Decreased calcaneal pitch bilaterally as seen with pes planus deformity. ??No evidence of an acute fracture or malalignment. ??Joint spaces are maintained. ??No destructive bone lesion. ??Tiny bilateral posterior calcaneal spurs. Procedure Note Radha Nicholson MD - 04/30/2024 EXAM: Bilateral foot x-ray HISTORY: Chronic bilateral foot pain. COMPARISON: None FINDINGS: 3 weightbearing views of both feet were performed. Decreased calcaneal pitch bilaterally as seen with pes planus deformity.No evidence of an acute fracture or malalignment. Joint spaces aremaintained. No destructive bone lesion. Tiny bilateral posteriorcalcaneal spurs. IMPRESSION: Bilateral pes planus. Tiny bilateral calcaneal spurs. POS - [id number] -------- FINAL REPORT -------- Dictated By: Radha Nicholson Dictated Date: 04/30/2024 19:34 ET Assigned Physician: Radha Nicholson Reviewed and Electronically Signed By: Radha Nicholson Signed Date: 04/30/2024 19:39 ET Workstation ID: [id number] Transcribed By: Self Edit Transcribed Date: 04/30/2024 19:34 ET Farzana Herring MD IMG XR PROCEDURES * Hepatitis C Screening (05/16/2023) Hepatitis C Screening abstracted Historical Provider MD NEHA Shankar from Last 3 Months or Most Recently Relevant to Health Maintenance Guarantor Name Account Type Relation to Patient Date of Phone Billing Address [place] Jacome Personal/Family Self 1965 [address] [place] [id number] Care Teams Assembling Motor Builder Relationship Specialty Start Date End Date Farzana Herring MD [address] [place] [address] [place] [id number] PCP - General Internal Medicine 04/23/24
--- OUTSIDE RECORDS SUMMARY | 2024-05-22 08:04 | XMS_ITS | Encounter Summary ---
Author Organization [facility] Address [address] [place] [address] Care Team Providers Care Employment Trainer Name Role Phone Farzana Herring MD Primary Care Provider [phone] Encounter Details Date Type Department Care Team (Latest Contact Info) Description 04/30/2024 11:12 AM EST - 04/30/2024 11:59 PM [facility] Hospital Encounter XRAY - [place] [address] [place] [address] Chronic pain of both hips Discharge Disposition: Home or Self Care Social History Tobacco Use Types Packs/Day Years [...] on file documented as of this encounter Medications at Time of Discharge Medication Sig Dispensed Refills Start Date End Date acetaminophen (Tylenol 8 Hour) 650 mg 8 hr tablet Take 1 tablet (650 mg total) by mouth every 8 (eight) hours if needed for mild pain. Do not crush, chew, or split. 60 tablet 2 04/30/2024 atorvastatin (LIPITOR) 10 mg tablet Take 1 tablet (10 mg total) by mouth 1 (one) time each day. 90 tablet 1 04/30/2024 azelastine (ASTELIN) 137 mcg (0.1 %) nasal spray 2 Sprays by Each Nare route 2 times daily. Use in each nostril as directed 07/18/2023 biotin 1 mg capsule Take by mouth. butalbit/acetamin/caff/c odeine (QWQCXOJJOZ-NFSIOFPXOS-M AF-COD ORAL) [id number]- COD OR Take by mouth cetirizine (ZyrTEC) 10 mg capsule Take by mouth. escitalopram (Lexapro) 20 mg tablet Take 1 Tablet by mouth daily. 10/29/2023 levothyroxine (SYNTHROID, LEVOTHROID) 25 mcg tablet Take 1 Tablet by mouth daily. loratadine (CLARITIN) 10 mg tablet Take 1 tablet (10 mg total) by mouth 1 (one) time each day if needed for allergies. 90 each 1 04/30/2024 OMEPRAZOLE ORAL Take by mouth. documented as of this encounter Discharge Disposition Disposition Code Departure Means Destination Home or Self Care documented in this encounter Plan of Treatment Upcoming Encounters Date Type Department Care Team (Late st Contact Info) Description 05/25/2024 10:00 AM EST Treatment Outpatient [address] [phone] Sangeeta Epstein, REFERRAL AGENT 05/29/2024 10:00 AM EST Treatment Outpatient [facility] - [address] [phone] Sangeeta Epstein, REFERRAL AGENT 06/01/2024 10:00 AM EST Treatment Outpatient [address] [phone] Sangeeta Epstein, REFERRAL AGENT 06/05/2024 10:00 AM EST Treatment Outpatient [address] [phone] Sangeeta Epstein, REFERRAL AGENT 06/08/2024 10:30 AM EST Treatment Outpatient [address] [phone] Jayden Archuleta, PT 10/28/2024 8:30 AM EDT Office Visit Adult Medicine [address] [phone] Farzana Herring MD [address] [place] [address] 02/05/2025 3:00 PM EDT Office Visit Adult Medicine [facility] [place] [address] [facility] [place] [address] Farzana Herring MD [address] [facility] [place] [address] documented as of this encounter Procedures Procedure Name Priority Date/Time Associated Diagnosis Comments XR HIPS 5+ VIEWS WO OR W PELVIS BILAT Routine 04/30/2024 11:50 AM EST Chronic pain of both hips documented in this encounter Results * XR Hips 5+ Views wo or w Pelvis bilat (04/30/2024 11:50 AM EST) Anatomical Region Laterality Modality Lower Extremities, Hip Bilateral Radiograp hic Imaging 04/30/2024 7:32 PM EST Impressions 04/30/2024 7:34 PM EST No hip abnormality identified. POS - [id number] -------- FINAL REPORT -------- Dictated By: Radha Nicholson Dictated Date: 04/30/2024 19:32 ET Assigned Physician: Radha Nicholson Reviewed and Electronically Signed By: Radha Nicholson Signed Date: 04/30/2024 19:34 ET Workstation ID: [id number] Transcribed By: Self Edit Transcribed Date: 04/30/2024 [...] IMPRESSION: No hip abnormality identified. POS - [id number] -------- FINAL REPORT -------- Dictated By: Radha Nicholson Dictated Date: 04/30/2024 19:32 ET Assigned Physician: Radha Nicholson Reviewed and Electronically Signed By: Radha Nicholson Signed Date: 04/30/2024 19:34 ET Workstation ID: [id number] Transcribed By: Self Edit Transcribed Date: 04/30/2024 19:32 ET Farzana Herring MD IMG XR PROCEDURES documented in this encounter Visit Diagnoses Diagnosis Chronic pain of both hips documented in this encounter Care Teams Employment Trainer Relationship Specialty Start Date End Date Farzana Herring MD [address] [place] [address] PCP - General Internal Medicine 04/23/24 documented as of this encounter
--- OUTSIDE RECORDS SUMMARY | 2024-05-22 08:04 | XMS_ITS | Encounter Summary ---
Author Organization [facility] Address [address] [place] [address] Care Team Providers Care Iron And Steel Work Supervisor Name Role Phone Farzana Herring MD Primary Care Provider [phone] Encounter Details Date Type Department Care Team (Latest Contact Info) Description 04/30/2024 11:00 AM EST - 04/30/2024 11:59 PM [facility] Hospital Encounter XRAY - [place] [address] [place] [address] Chronic pain of both feet Discharge Disposition: Home or Self Care Social [...] mg capsule Take by mouth. butalbit/acetamin/caff/c odeine (TFLGHBMNOI-AYQMDKDKFJ-A AF-COD ORAL) [id number]- COD OR Take by mouth cetirizine (ZyrTEC) [...] Description 05/25/2024 10:00 AM EST Treatment Outpatient [address] [phone] Sangeeta Epstein, TEXTILE ENGINEER 05/29/2024 10:00 AM EST Treatment Outpatient [facility] - [address] [phone] Sangeeta Epstein, TEXTILE ENGINEER 06/01/2024 10:00 AM EST Treatment Outpatient [address] [phone] Sangeeta Epstein, TEXTILE ENGINEER 06/05/2024 10:00 AM EST Treatment Outpatient [address] [phone] Sangeeta Epstein, TEXTILE ENGINEER 06/08/2024 10:30 AM EST Treatment Outpatient [address] [phone] Jayden Archuleta, PT 10/28/2024 8:30 AM EDT Office Visit Adult Medicine [address] [phone] Farzana Herring MD [address] [place] [address] 02/05/2025 3:00 PM EDT Office Visit Adult Medicine [facility] [address] [facility] [address] Farzana Herring MD [address] [facility] [place] documented as of this encounter Procedures Procedure Name Priority Date/Time Associated Diagnosis Comments XR FOOT 3+ VIEWS BILAT Routine 04/30/2024 11:48 AM EST Chronic pain of both feet documented in this encounter Results * XR Foot 3+ Views bilat (04/30/2024 11:48 AM EST) Anatomical Region Laterality Modality Lower Extremities, Foot Bilateral Radiogra phic Imaging 04/30/2024 7:34 PM EST Impressions 04/30/2024 7:39 PM EST Bilateral pes planus. ??Tiny bilateral calcaneal spurs. POS - [id number] -------- FINAL REPORT -------- Dictated By: Radha Nicholson Dictated Date: 04/30/2024 19:34 ET Assigned Physician: Radha Nicholson Reviewed and Electronically Signed By: Radha Nicholson Signed Date: 04/30/2024 19:39 ET Workstation ID: [id number] Transcribed By: Self Edit Transcribed Date: 04/30/2024 [...] planus. Tiny bilateral calcaneal spurs. POS - [id number] -------- FINAL REPORT -------- Dictated By: Radha Nicholson Dictated Date: 04/30/2024 19:34 ET Assigned Physician: Radha Nicholsno Reviewed and Electronically Signed By: Radha Nicholson Signed Date: 04/30/2024 19:39 ET Workstation ID: [id number] Transcribed By: Self Edit Transcribed Date: 04/30/2024 19:34 ET Farzana Herring MD IMG XR PROCEDURES documented in this encounter Visit Diagnoses Diagnosis Chronic pain of both feet documented in this encounter Care Teams Iron And Steel Work Supervisor Relationship Specialty Start Date End Date Farzana Herring MD [address] [place] [address] PCP - General Internal Medicine 04/23/24 documented as of this encounter
--- OUTSIDE RECORDS SUMMARY | 2024-05-22 08:04 | XMS_ITS | Encounter Summary ---
Author Organization [facility] Address [address] [place] [address] Care Team Providers Care Nuclear Supervising Operator Name Role Phone Farzana Herring MD Primary Care Provider [phone] Encounter Details Date Type Department Care Team (Latest Contact Info) Description 04/30/2024 11:10 AM EST - 04/30/2024 11:59 PM [facility] Hospital Encounter XRAY - [place] [address] [place] [address] Chronic midline low back pain with bilateral sciatica Discharge Disposition: Home or Self Care Social [...] mg capsule Take by mouth. butalbit/acetamin/caff/c odeine (ZIIYUTHVIU-HMTRMUXQUI-E AF-COD ORAL) [id number]- COD OR Take by mouth cetirizine (ZyrTEC) [...] Description 05/25/2024 10:00 AM EST Treatment Outpatient [facility] - [address] [phone] Sangeeta Epstein, ADVANCED SOLUTIONS ARCHITECT 05/29/2024 10:00 AM EST Treatment Outpatient [facility] - [address] [phone] Sangeeta Epstein, ADVANCED SOLUTIONS ARCHITECT 06/01/2024 10:00 AM EST Treatment Outpatient [address] [phone] Sangeeta Epstein, ADVANCED SOLUTIONS ARCHITECT 06/05/2024 10:00 AM EST Treatment Outpatient [address] [phone] Sangeeta Epstein, ADVANCED SOLUTIONS ARCHITECT 06/08/2024 10:30 AM EST Treatment Outpatient [address] [phone] Jayden Archuleta, PT 10/28/2024 8:30 AM EDT Office Visit Adult Medicine [address] [phone] Farzana Herring MD [address] [place] [address] 02/05/2025 3:00 PM EDT Office Visit Adult Medicine [facility] [address] [facility] [place] [address] Farzana Herring MD [address] [place] [place] documented as of this encounter Procedures Procedure Name Priority Date/Time Associated Diagnosis Comments XR LUMBAR SPINE 4+ VIEWS Routine 04/30/2024 11:49 AM EST Chronic midline low back pain with bilateral sciatica documented in this encounter Results * XR Lumbar Spine 4+ Views (04/30/2024 11:49 AM EST) Anatomical Region Laterality Modality Spine, L-spine Radiographic Yahaira ging 04/30/2024 7:26 PM EST Impressions 04/30/2024 7:31 PM EST Multilevel degenerative changes. POS - [id number] -------- FINAL REPORT -------- Dictated By: Radha Nicholson Dictated Date: 04/30/2024 19:26 ET Assigned Physician: Radha Nicholson Reviewed and Electronically Signed By: Radha Nicholson Signed Date: 04/30/2024 19:31 ET Workstation ID: [id number] Transcribed By: Self Edit Transcribed Date: 04/30/2024 [...] throughL5-S1. IMPRESSION: Multilevel degenerative changes. POS - [id number] -------- FINAL REPORT -------- Dictated By: Radha Nicholson Dictated Date: 04/30/2024 19:26 ET Assigned Physician: Radha Nicholson Reviewed and Electronically Signed By: Radha Nicholson Signed Date: 04/30/2024 19:31 ET Workstation ID: [id number] Transcribed By: Self Edit Transcribed Date: 04/30/2024 19:26 ET Farzana Herring MD IMG XR PROCEDURES documented in this encounter Visit Diagnoses Diagnosis Chronic midline low back pain with bilateral sciatica documented in this encounter Care Teams Nuclear Supervising Operator Relationship Specialty Start Date End Date Farzana Herring MD [address] [address] PCP - General Internal Medicine 04/23/24 documented as of this encounter
--- NOTE | 2024-05-22 08:06 | AM.OFFWIN_ITS ---
Intake Vital Signs 05/22/24 08:06 Height 5 ft 4 in Weight 166 lb BMI 28.5 BP 110/74 Blood Pressure Location Rt brachial Position Sitting Respiration 17 Pulse 130 H Pulse Source Pulse Oximeter Temp 99.8 F Temp Source Oral Pulse Oximetry (%) 96 Oxygen Delivery Method Room Air Intake Visit Reasons: EP Allergic reaction food, eye,lip(swelling) Intake Note: Pt states ate amharic food on saturday and woke up the next day with facial swelling ? allergric reaction Patient Tobacco Use Status: Never used Tobacco Allergies zinc acetate [From Banophen Anti-Itch] Allergy (Mild, Verified 05/22/24 08:08) Hives Sulfa (Sulfonamide Antibiotics) Allergy (Unknown, Verified 05/22/24 08:08) headache amoxicillin Allergy (Verified 05/22/24 08:08) Swelling topiramate Adverse Reaction (Unknown, Verified 05/22/24 08:08) confusion Olay Soap Allergy (Intermediate, Uncoded 05/22/24 08:08) Hives HPI HPI Comments History of Present Illness Details This is a 58-year-old female presenting to the walk-in clinic with concerns for an allergic reaction. Patient states she ate chicken mayberry mein from a [employer] restaurant 2 days ago and believes she may be having an allergic reaction to the soy. She reports facial and lip swelling as well as a diffuse rash throughout her body. She denies any wheezing, shortness of breath/difficulty breathing, throat swelling, or chest tightness. She also reports some flu-like symptoms for the past 2 days including nasal congestion, rhinorrhea, dry cough, fatigue, malaise, and fever/chills. She denies any chest pain. She denies any lightheadedness/dizziness. She reports decreased oral intake and decreased appetite due to her symptoms. [facility] Medical History Allergies Sinusitis Depression Social History Alcohol intake: never Patient Tobacco Use Status: Never used Tobacco Review of Systems Const All systems reviewed & are unremarkable except as noted in HPI and below Reports no additional complaints Eyes Reports no additional complaints ENT Reports no additional complaints Card Reports no additional complaints Resp Reports no additional complaints GI Reports no additional complaints Reports no additional complaints Musc Reports no additional complaints Skin/Breast Reports system reviewed and no additional complaints, except as documented Neuro Reports no additional complaints Psych Reports no additional complaints Endo Reports no additional complaints Reid/Lymph Reports no additional complaints Aller/Immun Reports no additional complaints Physical Exam Vital Signs: Last Vital Signs Temp 99.8 F 05/22/24 08:06 Pulse 130 H 05/22/24 08:06 Resp 17 05/22/24 08:06 BP 110/74 05/22/24 08:06 Pulse Ox 96 05/22/24 08:06 Oxygen Delivery Method Room Air 05/22/24 08:06 BMI result Body Mass Index 28.5 Const Other: Vital signs reviewed. Constitutional: Non-toxic appearing. No acute distress. Well-developed and well-nourished. HEENT: Normocephalic and atraumatic. There is bilateral periorbital edema and erythema as well as mild swelling of her lips. Tympanic membranes without erythema, edema, or bulging bilaterally. External auditory canals without erythema or edema bilaterally. Dry mucous membranes. No pharyngeal erythema or exudates. Skin: There is diffuse urticaria throughout body sparing her face/neck. Neck: Full and painless range of motion. No cervical lymphadenopathy. Cardio: Tachycardic but regular rhythm. No murmurs, gallops, or rubs. No lower extremity edema. No JVD. Pulmonary: No respiratory distress. No accessory muscle usage. Clear to auscultation bilaterally without wheezing, crackles, or rhonchi. Gastrointestinal: Soft, nontender, and nondistended in all 4 quadrants. Musculoskeletal: Normal range of motion in joints throughout the body. No deformity or other signs of injury. Neuro: Alert and oriented x4. Cranial nerves 2-12 grossly intact. No focal deficits appreciated. Psych: Normal mood and affect. 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 She has no evidence of anaphylaxis without chest tightness or wheezing or shortness of breath. Recommended continuing with asbd-fmi-ocefand antihistamines and patient was given a prescription for PO prednisone 40 mg x 2 days followed by 30 mg x 2 days followed by 20 mg x 3 days followed by 10 mg x2 days. She was advised to avoid allergens in the future. Patient was advised to follow-up here or proceed directly to the emergency room if she were to develop any chest tightness, wheezing, or shortness of breath. (2) Facial swelling: Code(s): R22.0 - Localized swelling, mass and lump, head Plan: This is a 58-year-old female who presented to the walk-in clinic with concerns for an allergic reaction with facial swelling and diffuse urticaria after eating soy, which she believes she is allergic to. She has no evidence of anaphylaxis without chest tightness or wheezing or shortness of breath. Recommended continuing with aidl-myc-gwmioiq antihistamines and patient was given a prescription for PO prednisone 40 mg x 2 days followed by 30 mg x 2 days followed by 20 mg x 3 days followed by 10 mg x2 days. She was advised to avoid allergens in the future. Patient was advised to follow-up here or proceed directly to the emergency room if she were to develop any chest tightness, wheezing, or shortness of breath. (3) Acute upper respiratory infection, unspecified: Code(s): J06.9 - Acute upper respiratory infection, unspecified Plan: Patient had also complained about some viral URI symptoms such as nasal congestion, rhinorrhea, dry cough, fever/chills, and malaise/fatigue. These could be related to the allergic reaction; however, patient likely has a viral upper respiratory tract infection. COVID/flu/RSV testing was sent. Recommended symptomatic management including rest, increased fluids, wszy-gob-fzhrivu decongestants/throat lozenges, and acetaminophen/ibuprofen for pain/fever. (4) Sinus tachycardia: Code(s): R00.0 - Tachycardia, unspecified Plan: Patient was found to have sinus tachycardia with a heart rate of 130 beats per minute during assessment of vital signs. An EKG was obtained, which showed sinus tachycardia 112 beats per minute without any acute ischemic changes. Patient is tachycardic he is likely in the setting of acute illness combined with mild dehydration. She was instructed to increase her oral hydration. She was instructed to follow-up here or proceed to the emergency room if she were to develop pain/dizziness, chest pain, or shortness for breath. Patient verbalized understanding and she is in agreement with the plan. Orders: Orders SARS-CoV2/FLU/RSV Today J06.9 - Acute upper respiratory infection, unspecified AMB EKG-In Office Today R00.0 - Tachycardia, unspecified Medications: New prednisone Take 4 tablets daily x 2 days followed by 3 tablets daily x2 days followed by 2 tablets daily x2 days followed by 1 tablet daily x2 days. 10 mg PO DIRECTED 20 tabs 0RF Coding Level of Care Code Est Pt Level 3 (54234) Diagnoses Urticaria due to food allergy L50.0 Facial swelling R22.0 Acute upper respiratory infection, unspecified J06.9 Sinus tachycardia R00.0 CPT Codes EKG - CPT: 25152-Tyuwvfngbekdjykfy, Complete ([id number])
== END | disposition home or self-care (01) ==

== ENCOUNTER 2024-05-25 12:17 | Outpatient (AMB) | payer MEDICARE, MEDICAID, SELFPAY ==
[2024-05-25 13:07] VITALS: BP 118/80; PULSE 72; TEMP 36.4; O2SAT 97
--- NOTE | 2024-05-25 13:07 | MHC.OFFWIV ---
Intake Vital Signs 05/25/24 13:07 Weight 164 lb BP 118/80 Blood Pressure Location Rt brachial Position Sitting Pulse 72 Pulse Source Pulse Oximeter Temp 97.5 F Temp Source Oral Pulse Oximetry (%) 97 Oxygen Delivery Method Room Air Intake Visit Reasons: EP allergy reaction still([phone]) Intake Note: Patient here for allergic reaction Patient Tobacco Use Status: Never used Tobacco Allergies zinc acetate [From Banophen Anti-Itch] Allergy (Mild, Verified 05/25/24 13:08) Hives Sulfa (Sulfonamide Antibiotics) Allergy (Unknown, Verified 05/25/24 13:08) headache amoxicillin Allergy (Verified 05/25/24 13:08) Swelling topiramate Adverse Reaction (Unknown, Verified 05/25/24 13:08) confusion Olay Soap Allergy (Intermediate, Uncoded 05/25/24 13:08) Hives Do you need a note to return to daycare/school/sports/work: No HPI HPI Comments History of Present Illness Details History - The patient is a 58-year-old female presenting with an allergic reaction accompanied by rash and severe itching. - The allergic reaction commenced 5 days ago with significant rash and worsening pruritus, chiefly affecting the legs and resulting in increased eye swelling. - The patient's allergic episodes have been recurrent over two years, with this one noted for its severity. Symptoms initially subsided but resurfaced on the torso and arms. - Continued management with prednisone, starting at 40 mg daily, now on day 3 of her taper, but it remains inadequate despite tapering attempts. - Past interventions with antihistamines like Benadryl and hydroxyzine were deemed insufficient by the patient. - There is a potential adverse drug reaction implicated with Mucinex, suspected to have exacerbated the allergic reaction. - The patient also reported ear discomfort with fluid retention but without infection and belief that it may relate to cold weather exposure. Physical Exam General: Cooperative, healthy appearing, comfortable and no acute distress Orientation/consciousness: Patient oriented x3 Limitations: No limitations Head: Normal to inspection Ears: Hearing grossly normal bilaterally, external ears normal, TM's normal bilaterally, slight fluid present but no infection Nose: Normal external nose present, Normal nares present and No nasal discharge present Face and sinus: Normal facial exam and Yes sinuses nontender Mouth: Normal oral and palatal mucosa present and moist mucous membranes Throat: Yes tonsils normal, Yes uvula midline. Posterior oropharynx erythema Eyes: Appearance normal, both eyes and all related structures Neck: Normal visual inspection Respiratory: Clear to auscultation bilaterally. Normal respiratory effort, able to speak in complete sentences, no respiratory distress, not tachypneic, no tripod positioning and no use of accessory muscles Cardiovascular: Regular rate and rhythm. Normal S1 and S2 Skin: several circular, raised, erythematous rash on bilateral legs, lower and upper back Neuro: Patient oriented x3 Extremities: Normal to inspection and Yes no clubbing, cyanosis or edema PFSH Medical History Allergies Sinusitis Depression Social History Alcohol intake: never Patient Tobacco Use Status: Never used Tobacco Review of Systems Const All systems reviewed & are unremarkable except as noted in HPI and below Physical Exam Vital Signs: Last Vital Signs Temp 97.5 F 05/25/24 13:07 Pulse 72 05/25/24 13:07 BP 118/80 05/25/24 13:07 Pulse Ox 97 05/25/24 13:07 Oxygen Delivery Method Room Air 05/25/24 13:07 Assessment & Plan Assessment & Plan (1) Allergic dermatitis: Code(s): L23.9 - Allergic contact dermatitis, unspecified cause Plan: The patient's allergic reaction with rash and itchiness will be addressed with an adjusted prednisone dosage adding 10mg tablets to her existing taper, to result in 50 mg for 3 days then taper to 30mg, 20mg and 10mg over 7 days to gain symptomatic control, gave pt a written out schedule on the taper. Increased Hydroxyzine to 25mg (from 10mg) will be utilized pre-bedtime to manage persistent itching, noting the sedation risk and interactions with escitalopram, to be used sparingly and occasionally. Ibuprofen will be proposed to assist with throat and ear discomfort and inflammation and other supportive measures such as warm salt water gargles are recommended. The plan elucidates on avoiding triggers and managing any potential adverse reactions to current medications. Clear guidelines on drug dosage, tapering schedule, and symptom monitoring were provided to ensure optimized therapy efficacy and patient safety. Patient was informed and verbally consented to the use of an ambient scribe for clinic note documentation during this visit Medications: New prednisone take 2 tablets on day 1, 3 tablets on days 2 and 3, 2 tablets on days 4 and 5 and one tablet on days 6 and 7. To be used in addition to prior prescription of prednisone. 10 mg PO DIRECTED 14 tabs 0RF hydroxyzine HCl 25 mg PO BEDTIME PRN 7 tabs 0RF itching Discontinued hydroxyzine HCl Discontinued Reason: Doctor's Order 10 mg PO Q6-8H PRN 20 tabs 0RF itching Coding Level of Care Code Est Pt Level 4 (85403) Diagnoses Allergic dermatitis L23.9
== END 2024-05-25 13:54 | disposition home or self-care (01) ==
PROVIDERS: Visit Provider Physician Assistant
DX: L23.9 Allergic contact dermatitis, unspecified cause (principal)

== ENCOUNTER → 2024-05-25 12:17 | Outpatient (BNVA) | payer MEDICARE, MEDICAID, SELFPAY | DX: L23.9 Allergic contact dermatitis, unspecified cause (principal) | CPT/HCPCS: 99212 ==

== ENCOUNTER 2024-07-20 08:46 | Outpatient (AMB) | payer MEDICARE, MEDICAID, SELFPAY ==
--- OUTSIDE RECORDS SUMMARY | 2024-07-20 09:27 | XMS_ITS | Clinical Summary ---
Author Organization [address] Address [address] [place] [phone] Phone Care Team Providers Care [employer] Name Role Phone Farzana Herring MD Primary Care Provider [phone] Allergies Active Allergy Reactions Criticality Noted Date Comments Amoxicillin 06/14/2023 Other 05/16/2023 Flu Virus Vaccine Sulfa (Sulfonamide Antibiotics) 04/2023 Sulfa Drugs Medications azelastine (ASTELIN) 137 mcg (0.1 %) nasal spray 2 Sprays by Each Nare route 2 times daily. Use in each nostril as directed 07/18/2023 Active biotin 1 mg capsule Take by mouth. Active butalbit/acetam in/caff/codeine (BUTALBITAL-CRUZ [id number] ORAL) BUTALBITAL-AP AP-CAFF-COD OR Take by mouth [...] for allergies. 90 each 1 04/30/2024 Active Active Problems Problem Noted Date Diagnosed Date Overweight (BMI 25.0-29.9) 04/30/2024 Chronic pain of both hips 04/30/2024 Allergy 06/14/2023 Hyperglycemia 06/14/2023 Hypothyroidism 06/14/2023 Pure hypercholesterolemia 06/14/2023 Encounters Date Type Department Care Team Description 06/08/2024 10:30 AM EST Treatment Outpatient [address] [phone] Jayden Archuleta, PT Chronic pain of both hips (Primary Dx) 06/05/2024 10:00 AM EST Treatment Outpatient [address] [phone] Sangeeta Epstein, VOCATIONAL ED INSTRUCTOR Chronic pain of both hips (Primary Dx) 05/29/2024 10:00 AM EST Treatment Outpatient [address] [phone] Sangeeta Epstein, VOCATIONAL ED INSTRUCTOR Chronic pain of both hips (Primary Dx) 05/25/2024 10:00 AM EST Treatment Outpatient [address] [phone] Sangeeta Epstein, VOCATIONAL ED INSTRUCTOR Chronic pain of both hips (Primary Dx) 05/18/2024 11:00 AM EST Treatment Outpatient [address] [phone] Sangeeta Epstein, VOCATIONAL ED INSTRUCTOR Chronic pain of both hips (Primary Dx) 05/13/2024 10:00 AM EST Treatment Outpatient [address] [phone] Sangeeta Epstein, VOCATIONAL ED INSTRUCTOR Chronic pain of both hips (Primary Dx) 05/12/2024 3:00 PM EST Consult Orthopedic Surgery - [address] [phone] Luis Felipe Raman, DPM Chronic pain of both feet (Primary Dx); Lumbosacral radiculopathy; Pes planus of both feet; Metatarsalgia of left foot 05/11/2024 10:30 AM EST Evaluation Outpatient Rehabilitation - [address] [phone] Jayden Archuleta, PT Chronic pain of both hips (Primary Dx) 05/11/2024 Plan of Care Documentation Outpatient Rehabilitation - [address] [phone] 04/30/2024 11:12 AM EST - 04/30/2024 11:59 PM EST Hospital Encounter [facility] [phone] Chronic pain of both hips Discharge Disposition: Home or Self Care 04/30/2024 11:10 AM EST - 04/30/2024 11:59 PM EST Hospital Encounter [address] [phone] Chronic midline low back pain with bilateral sciatica Discharge Disposition: Home or Self Care 04/30/2024 11:00 AM EST - 04/30/2024 11:59 PM EST Hospital Encounter [address] [phone] Chronic pain of both feet Discharge Disposition: Home or Self Care 04/30/2024 10:30 AM EST Office Visit Adult Medicine [address] [phone] Farzana Herring MD Hyperlipidemia, unspecified hyperlipidemia type (Primary Dx); Hypothyroidism, unspecified type; Chronic pain of both hips; Overweight (BMI 25.0-29.9); Chronic midline low back pain with bilateral sciatica; History of gestational diabetes; Family history of diabetes mellitus; Hyperglycemia; Chronic pain of both feet; Muscle spasm 04/23/2024 Telephone Adult Medicine [address] [phone] Farzana Herring MD Back Pain from Last 3 Months Medical History Medical History Date Comments Allergy DX:Allergy Hypothyroidism DX:Hypothyroidis m Pure hypercholesterolemia DX:Pur e hypercholesterolemia Social History Tobacco Use Types Packs/Day Years Used Date Smoking Tobacco: Never Smokeless Tobacco: Never Alcohol Use Standard Drinks/Week Comments Never 0 (1 standard drink = 0.6 oz pur e alcohol) Comments Unknown Sex and Gender Information Value Date Recorded Sex Assigned at Not on file Legal Sex Female 11:03 AM EDT Gender Identity Not on file Sexual Orientation Not on file Obstetrics History Last Filed [...] Care Team (Late st Contact Info) Description 10/28/2024 8:30 AM EDT Office Visit Adult Medicine [address] [phone] Farzana Herring MD [address] [place] [address] 02/05/2025 3:00 PM EDT Office Visit Adult [address] [phone] Farzana Herring MD [address] [place] [address] Health Maintenance Due Date Last Done Comments Breast Cancer Screening 1965 DTaP,Tdap,and Td Vaccines (1 - Tdap) 1984 Hepatitis B Vaccines (1 of 3 - 19+ 3-dose series) 1984 Cervical Cancer Screening: P ap Smear 1986 Pneumococcal Vaccine: 50+ Years (1 of 1 - PCV) 06/29/2015 Zoster Vaccines (1 of 2) 06/29/2015 Colorectal Cancer Screening: Colonoscopy 11/08/2023 Depression Screening 11/08/2023 HIV Screening 11/08/2023 Medicare Annual Wellness Visit 11/08/2023 Social Influencers of Health Screening 11/08/2023 COVID-19 Vaccine (1 - 2023-2 5 season) 2023 Influenza Vaccine (Season Ended) 2024 Cholesterol Screening (Lipid Panel) 05/11/2029 05/11/2024, 05/16/2023 RSV Immunization Adult Patients (1 - 1-dose 75+ series) 2040 Hepatitis C Screening Completed 05/16/2023 HIB Vaccines [...] patient's age to complete this topic Meningococcal B Vacine Aged Out No lo nger eligible based on patient's age to complete [...] on patient's age to complete this topic Procedures Procedure Name Priority Date/Time Associated Diagnosis [...] AM EST Chronic pain of both feet HM HEPATITIS C SCREENING Routine 05/16/2023 from Last 3 Months or Most Recently Relevant to Health Maintenance Results * Thyroid stimulating hormone with reflex to free t4 and free t3 (05/11/2024 10:08 AM EST) TSH 2.95 0.40 - 4.00 mcIU/mL LAB CHEMISTRY METHOD 05/11/2024 3:06 PM EST [facility] Blood Venous blood specimen / Unknown Venipuncture / Unknown 05/11/2024 10:08 AM EST 05/11/2024 10:08 AM EST us Farzana Herring MD LAB BLOOD ORDERABLES Final Result [facility] [address] [place] [address], [place] [phone] * (ABNORMAL) Lipid panel with reflex to direct LDL (05/11/2024 10:08 AM EST) Cholesterol 207(H) 0 - 200 mg/dL LAB CHEMISTRY METHOD 05/11/2024 2:59 PM [facility] Triglycerides 145 0 - 150 mg/dL LAB CHEMISTRY METHOD 05/11/2024 2:59 PM EST [facility] HDL 49 >=40 mg/dL LAB CHEMISTRY METHOD 05/11/2024 2:59 PM EST [facility] LDL Calculated 129(H) 0 - 100 mg/dL LAB CHEMISTRY METHOD 05/11/2024 2:59 PM [facility] VLDL Cholesterol Rambo 29 mg/dL LAB CHEMISTRY METHOD 05/11/2024 2:59 PM [facility] Non HDL Chol. (LDL+VLDL) 158(H) <145 mg/dL LAB CHEMISTRY METHOD 05/11/2024 2:59 PM [facility] Chol/HDL Ratio 4.2 0.0 - 4.4 LAB CHEMISTRY METHOD 05/11/2024 2:59 PM EST [facility] Blood Venous blood specimen / Unknown Venipuncture / Unknown 05/11/2024 10:08 AM EST 05/11/2024 10:08 AM EST us Farzana Herring MD LAB BLOOD ORDERABLES Final Result [facility] [address] [place] [address], * Phosphorus (05/11/2024 10:08 AM EST) Phosphorus 3.4 2.5 - 4.5 mg/dL LAB CHEMISTRY METHOD 05/11/2024 2:59 PM [facility] Blood Venous blood specimen / Unknown Venipuncture / Unknown 05/11/2024 10:08 AM EST 05/11/2024 10:08 AM EST Farzana Herring MD LAB BLOOD ORDERABLES Final Result Performing Organization Address City/[facility]/ZIP Co de Phone Number [facility] [address] [place] [address], [place] [phone] * Magnesium (05/11/2024 10:08 AM EST) Magnesium 2.1 1.9 - 2.6 mg/dL LAB CHEMISTRY METHOD 05/11/2024 2:59 PM EST [facility] Blood Venous blood specimen / Unknown Venipuncture / Unknown 05/11/2024 10:08 AM EST 05/11/2024 10:08 AM EST Farzana Herring MD LAB BLOOD ORDERABLES Final Result Performing Organization Address [facility]/ZIP Co de Phone Number [facility] [address] [place] [address], [place] [phone] * Hemoglobin A1c (05/11/2024 10:08 AM EST) Pathologist [facility] Hemoglobin A1C 6.1 <6.5 % LAB CHEMISTRY METHOD 05/11/2024 1:57 PM EST [facility] Mean Bld Glu Estim. 128 mg/dL LAB CHEMISTRY METHOD 05/11/2024 1:57 PM EST [facility] Blood Venous blood specimen / Unknown Venipuncture / Unknown 05/11/2024 10:08 AM EST 05/11/2024 10:08 AM EST Farzana Herring MD LAB BLOOD ORDERABLES Final Result Performing Organization Address City/[facility]/ZIP Co de Phone Number [facility] [address] [place] [address], [place] [phone] * (ABNORMAL) Comprehensive metabolic panel (05/11/2024 10:08 AM EST) Pathologist [facility] Sodium 138 133 - 145 mmol/L LAB CHEMISTRY METHOD 05/11/2024 3:28 PM [facility] Potassium 4.9 3.5 - 5.5 mmol/L LAB CHEMISTRY METHOD 05/11/2024 3:28 PM [facility] Chloride 106 96 - 110 mmol/L LAB CHEMISTRY METHOD 05/11/2024 3:28 PM [facility] CO2 28 21 - 32 mmol/L LAB CHEMISTRY METHOD 05/11/2024 3:28 PM [facility] Anion Gap 4 3 - 11 LAB CHEMISTRY METHOD 05/11/2024 3:28 PM [facility] Glucose 137(H) 70 - 100 mg/dL LAB CHEMISTRY METHOD 05/11/2024 3:28 PM [facility] BUN 18 5 - 25 mg/dL LAB CHEMISTRY METHOD 05/11/2024 3:28 PM [facility] Creatinine 0.98 0.50 - 1.10 mg/dL LAB CHEMISTRY METHOD 05/11/2024 3:28 PM [facility] eGFR 67 >=60 mL/min/1. 73m2 LAB CHEMISTRY METHOD 05/11/2024 3:28 PM [facility] Comment:Calculation based on the??Chronic Kidney Disease Epidemiology Collaboration (CKD-EPI) equation refit??without adjustment for race. BUN/Creatinine Ratio 18.4 LAB CHEMISTRY METHOD 05/11/2024 3:28 PM [facility] Calcium 9.6 8.5 - 10.5 mg/dL LAB CHEMISTRY METHOD 05/11/2024 3:28 PM [facility] AST (SGOT) 47(H) 10 - 42 unit/L LAB CHEMISTRY METHOD 05/11/2024 3:28 PM [facility] ALT (SGPT) 68(H) 10 - 60 unit/L LAB CHEMISTRY METHOD 05/11/2024 3:28 PM [facility] Alkaline Phosphatase 126(H) 42 - 121 unit/L LAB CHEMISTRY METHOD 05/11/2024 3:28 PM EST [facility] Total Protein 7.0 6.0 - 8.0 g/dL LAB CHEMISTRY METHOD 05/11/2024 3:28 PM EST [facility] Albumin 4.1 3.2 - 5.0 g/dL LAB CHEMISTRY METHOD 05/11/2024 3:28 PM EST [facility] Total Bilirubin 0.4 0.0 - 1.4 mg/dL LAB CHEMISTRY METHOD 05/11/2024 3:28 PM EST [facility] Blood Venous blood specimen / Unknown Venipuncture / Unknown 05/11/2024 10:08 AM EST 05/11/2024 10:08 AM EST us Farzana Herring MD LAB BLOOD ORDERABLES Final Result [facility] [address] [place] [address], * XR Hips 5+ Views wo or w Pelvis bilat (04/30/2024 11:50 AM EST) Anatomical Region Laterality Modality Lower Extremities, Hip Bilateral Radiograp hic Imaging 04/30/2024 7:32 PM EST Impressions 04/30/2024 7:34 PM EST No hip abnormality identified. POS - [id number] -------- FINAL REPORT -------- Dictated By: Radha Nicholson Dictated Date: 04/30/2024 19:32 ET Assigned Physician: Radha Nicholson Reviewed and Electronically Signed By: Radha Nicholson Signed Date: 04/30/2024 19:34 ET Workstation ID: [id number] Transcribed By: Self Edit Transcribed Date: 04/30/2024 [...] IMPRESSION: No hip abnormality identified. POS - [id number] -------- FINAL REPORT -------- Dictated By: Radha Nicholson Dictated Date: 04/30/2024 19:32 ET Assigned Physician: Radha Nicholson Reviewed and Electronically Signed By: Radha Nicholson Signed Date: 04/30/2024 19:34 ET Workstation ID: [id number] Transcribed By: Self Edit Transcribed Date: 04/30/2024 19:32 ET us Farzana Herring MD IMG XR PROCEDURES Final Res ult * XR Lumbar Spine 4+ Views (04/30/2024 11:49 AM EST) Anatomical Region Laterality Modality Spine, L-spine Radiographic Yahaira ging 04/30/2024 7:26 PM EST Impressions 04/30/2024 7:31 PM EST Multilevel degenerative changes. POS - [id number] -------- FINAL REPORT -------- Dictated By: Radah Nicholson Dictated Date: 04/30/2024 19:26 ET Assigned Physician: Radha Nicholson Reviewed and Electronically Signed By: Radha Nicholson Signed Date: 04/30/2024 19:31 ET Workstation ID: [id number] Transcribed By: Self Edit Transcribed Date: 04/30/2024 [...] throughL5-S1. IMPRESSION: Multilevel degenerative changes. POS - [id number] -------- FINAL REPORT -------- Dictated By: Radha Nicholson Dictated Date: 04/30/2024 19:26 ET Assigned Physician: Radha Nicholson Reviewed and Electronically Signed By: Radha Nicholson Signed Date: 04/30/2024 19:31 ET Workstation ID: [id number] Transcribed By: Self Edit Transcribed Date: 04/30/2024 19:26 ET us Farzaan Herring MD IMG XR PROCEDURES Final Res ult * XR Foot 3+ Views bilat (04/30/2024 11:48 AM EST) Anatomical Region Laterality Modality Lower Extremities, Foot [facility]ilateral [facility] 04/30/2024 7:34 PM EST Impressions 04/30/2024 7:39 PM EST Bilateral pes planus. ??Tiny bilateral calcaneal spurs. POS - [id number] -------- FINAL REPORT -------- Dictated By: Radha Nicholson Dictated Date: 04/30/2024 19:34 ET Assigned Physician: Radha Nicholson Reviewed and Electronically Signed By: Radha Nicholson Signed Date: 04/30/2024 19:39 ET Workstation ID: [id number] Transcribed By: Self Edit Transcribed Date: 04/30/2024 [...] planus. Tiny bilateral calcaneal spurs. POS - [id number] -------- FINAL REPORT -------- Dictated By: Radha Nicholson Dictated Date: 04/30/2024 19:34 ET Assigned Physician: Radha Nicholson Reviewed and Electronically Signed By: Radha Nicholson Signed Date: 04/30/2024 19:39 ET Workstation ID: [id number] Transcribed By: Self Edit Transcribed Date: 04/30/2024 19:34 ET us Farzana Herring MD IMG XR PROCEDURES Final Res ult * Hepatitis C Screening (05/16/2023) Hepatitis C Screening abstracted us Historical Provider HEALTH MAINTENANCE Final Result from Last 3 Months or Most Recently Relevant to Health Maintenance Insurance * Guarantor: Olivia Jacome Account Type Relation to Patient Date of Phone Billing Address Personal/Family Self [address] [place] [id number] MEDICAID - [place] [employer] MEDICARE Care Teams [employer] Relationship Specialty Start Date End Date Farzana Herring MD [address] [facility] [place] [id number] PCP - General Internal Medicine 04/23/24
[2024-07-20 09:28] VITALS: BP 126/78; PULSE 117; O2SAT 98
--- NOTE | 2024-07-20 09:28 | AM.OFFWIN_ITS ---
Intake Vital Signs 07/20/24 09:28 Weight 162 lb BP 126/78 Blood Pressure Location Lt brachial Position Sitting Pulse 117 H Pulse Source Pulse Oximeter Pulse Oximetry (%) 98 Oxygen Delivery Method Room Air Intake Visit Reasons: EP Rash on leg Intake Note: Patient here for rash on legs that started this morning after taking Vitamin D3 1000IU Patient Tobacco Use Status: Never used Tobacco Allergies zinc acetate [From Banophen Anti-Itch] Allergy (Mild, Verified 07/20/24 09:32) Hives Sulfa (Sulfonamide Antibiotics) Allergy (Unknown, Verified 07/20/24 09:32) headache amoxicillin Allergy (Verified 07/20/24 09:32) Swelling topiramate Adverse Reaction (Unknown, Verified 07/20/24 09:32) confusion Olay Soap Allergy (Intermediate, Uncoded 07/20/24 09:32) Hives Do you need a note to return to daycare/school/sports/work: No HPI HPI Comments History of Present Illness Details History of Present Illness - The patient is a 59-year-old female pr esenting with itchy hives/rash following vitamin intake last night. The episode began after she took a vitamin D pill, awakening with significant hives and a severe itch. She reports experiencing puffy eyes. Denies a feeling like her throat is closing up or trouble breathing or wheezing. She did not take any medications before she left her house this morning to come to the clinic. She does have a history of allergies and states she does have an EpiPen at home if she needs one. She is also aware how to use it. Further, she has had a recent illness and insufficient fluid intake due to impaired hydration. The patient also describes symptoms of an upper respiratory tract infection, such as persistent cough, congestion, and a stuffy nose, following exposure to a sick partner. Her respiratory symptoms began several days ago and appear to coincide with her current state of illness. Physical Exam General: Cooperative, healthy appearing, comfortable, no acute distress and well developed Orientation: Patient oriented x3 Limitations: No limitations Head: Normal to inspection Ears: Hearing grossly normal bilaterally Nose: Normal External nose present Face and sinus: Normal facial exam Eyes: Appearance normal, both eyes and all related structures Neck: Normal visual inspection and Yes full ROM Respiratory: Normal respiratory effort and able to speak in complete sentences. Skin: Urticarial rash on bilateral thighs and abdomen, not warm, ecchymosis. Neuro: Patient oriented x3 Extremities: Normal to inspection [facility] Medical History Allergies Sinusitis Depression Social History Alcohol intake: never Patient Tobacco Use Status: Never used Tobacco Physical Exam Vital Signs: Last Vital Signs Pulse 126 H 07/20/24 09:28 BP 126/78 07/20/24 09:28 Pulse Ox 98 07/20/24 09:28 Oxygen Delivery Method Room Air 07/20/24 09:28 Assessment & Plan Assessment & Plan (1) Allergic dermatitis: Code(s): L23.9 - Allergic contact dermatitis, unspecified cause Plan: VSS except slight sinus tachycardia most likely secondary to some dehydration as she is also sick with an upper respiratory tract infections, patient well- appearing, urticarial rash on both legs and her chest. Prescribed prednisone, she has a EpiPen at home as well as hydroxyzine for symptomatic relief. Prescribe prednisone with a taper schedule starting at 50 mg for two days, followed by 40 mg, 30 mg, 20 mg, and finally 10 mg, each for two days, to manage urticaria and inflammation. Utilize hydroxyzine, an antihistamine previously prescribed, for pruritus. The prescription details emphasize diligent hydration to alleviate dehydration marked by elevated heart rate, advising fluid and electrolyte consumption. In addition, a cough suppressant is prescribed for relief from upper respiratory symptoms, with attention to a well-rounded diet for nutritional needs. The counseling includes dietary sources of vitamins to avoid adverse reactions from supplements. Patient was informed and verbally consented to the use of an ambient scribe for clinic note documentation during this visit. (2) URI, acute: Code(s): J06.9 - Acute upper respiratory infection, unspecified Plan: as above Medications: New benzonatate 200 mg PO BEDTIME PRN 10 caps 0RF cough prednisone see taper instructions; 50 mg Daily x2 days, 40mg x2 days, 30 mg daily x2 days, 20 mg daily x2 days, 10 mg daily x2 days 10 mg PO DIRECTED 30 tabs 0RF Coding Level of Care Code New Pt Level 4 (52568) Diagnoses Allergic dermatitis L23.9 URI, acute J06.9
== END 2024-07-20 10:05 | disposition home or self-care (01) ==
PROVIDERS: Visit Provider Physician Assistant
DX: L23.9 Allergic contact dermatitis, unspecified cause (principal); J06.9 Acute upper respiratory infection, unspecified

== ENCOUNTER → 2024-07-20 08:46 | Outpatient (BNVA) | payer MEDICARE, MEDICAID, SELFPAY | PROVIDERS: Visit Provider Physician Assistant | DX: L23.9 Allergic contact dermatitis, unspecified cause (principal); J06.9 Acute upper respiratory infection, unspecified | CPT/HCPCS: 99212 ==

== ENCOUNTER 2024-09-07 14:21 | Emergency (ER) | payer MEDICARE, MEDICAID, SELFPAY ==
[2024-09-07 14:31] VITALS: BP 141/100; PULSE 115; RESP 18; TEMP 36.6; O2SAT 98; BMI 23.7
--- NOTE | 2024-09-07 14:31 | ED_ITS ---
HPI - General Adult General Chief complaint: Nausea/Vomiting/Diarrhea Stated complaint: Food Poisoning Time Seen by Provider: 09/07/24 16:48 Source: patient Mode of arrival: ambulatory Limitations: no limitations History of Present Illness ED Provider: Dr. Mindy Rushing HPI narrative: Patient comes to the emergency room complaining of nausea vomiting x1. Patient states that she ate sausage earlier today and her had the same symptoms. Patient denies any nausea at this time, no abdominal pain. Denies any diarrhea, denies fever chills. Related Data Home Medications ?Medication ?Instructions ?Recorded ?Confirmed atorvastatin 10 mg tablet 10 mg PO DAILY 02/07/23 11/09/23 escitalopram oxalate 20 mg tablet 20 mg PO DAILY 02/07/23 11/09/23 (Lexapro) levothyroxine 25 mcg tablet 25 mcg PO DAILY 02/07/23 11/09/23 lorazepam 1 mg tablet 1 mg PO BID 02/07/23 11/09/23 omeprazole 20 mg capsule,delayed 20 mg PO BID 02/07/23 11/09/23 release azelastine 137 mcg (0.1 %) nasal intranasal 05/29/23 11/09/23 spray Previous Rx's ?Medication ?Instructions ?Recorded epinephrine 0.3 mg/0.3 mL 0.3 mg (0.3 mL) IM Q10M PRN 02/11/24 injection, auto-injector anaphylaxis #2 ea hydroxyzine HCl 25 mg tablet 25 mg PO BEDTIME PRN itching #7 05/25/24 tabs benzonatate 200 mg capsule 200 mg PO BEDTIME PRN cough #10 07/20/24 caps prednisone 10 mg tablet 10 mg PO DIRECTED #30 tabs 07/20/24 ondansetron HCl 4 mg tablet 4 mg PO Q6H PRN nausea and 09/07/24 vomiting #10 tabs Allergies Allergy/AdvReac Type Severity Reaction Status Date / Time zinc acetate Allergy Mild Hives Verified 09/07/24 14:33 [From Banophen Anti-Itch] Sulfa (Sulfonamide Allergy Unknown headache Verified 09/07/24 14:33 Antibiotics) amoxicillin Allergy Swelling Verified 09/07/24 14:33 topiramate AdvReac Unknown confusion Verified 09/07/24 14:33 Olay Soap Allergy Intermediate Hives Uncoded 09/07/24 14:33 Review of Systems 2 Review of Systems: Constitutional : No Weight loss, No Fever, No Chills, No Night Sweats, No Fatigue, No Malaise ENT/Mouth : No Hearing loss, No Ear Pain, No Nasal Congestion, No Sinus Pain, No Hoarseness, No sore throat, No Rhinorrhea, No Swallowing Difficulty Eyes: No Eye Pain, No Swelling, No Redness, No Foreign Body, No Discharge, No Vision Changes Cardiovascular : No Chest Pain, No SOB, No Dyspnea on Exertion, No Orthopnea, No Edema, No Palpitations Respiratory : No Cough, No Sputum, No Wheezing, No Smoke Exposure, No Dyspnea Gastrointestinal : Complaining of nausea and vomiting, No Diarrhea, No Constipation, No abdominal Pain, No Hematochezia, No Melena Genitourinary : no irregular bleeding, No Dysuria, No Urinary Frequency, No Hematuria, No Urinary Incontinence, No Urgency, No Flank Pain, No Urinary Flow Changes, No Hesitancy Musculoskeletal : No joint pain, No Myalgias, No Joint Swelling Skin : No Skin Lesions, No rash Neuro : No Weakness, No Numbness, No Paresthesias, No Loss of Consciousness, No Dizziness, No Headache Psych : No Anxiety/Panic, No Depression, No SI/HI/AH/VH, No Social Issues, Heme/Lymph: No Bruising, No Bleeding,No Lymphadenopathy Endocrine : No Polyuria, No Polydipsia, No Temperature Intolerance [facility] Past Medical History Medical History Allergies Sinusitis Depression Social History Social History Alcohol intake: never Patient Tobacco Use Status: Never used Tobacco Smoked in Last 30 Days: No Use of substances other than those prescribed or required for medical reasons: No Advance Directives: No Advance Directives Information Provided: Yes Do you have a plan to hurt others: No Plan Patient : No Physical Exam ED Vital Signs: Vital Signs - 24 hr 09/07/24 14:31 09/07/24 16:01 Temperature 98 F 98.5 F Pulse Rate 115 H 99 Respiratory Rate 18 18 Blood Pressure 141/100 H 131/69 Pulse Oximetry 98 100 Oxygen Delivery Method Room Air Room Air BMI result Body Mass Index 23.7 Const Other: Appearance: Alert. Oriented X3. No acute distress. Eyes: Pupils equal, round and reactive to light. ENT: Pharynx normal. Moist mucous membranes Neck: Normal inspection. Neck supple. No lymph nodes noted. No crepitus CVS: Normal heart rate and rhythm. Pulses normal. Normal S1 and S2 Respiratory: No respiratory distress. Breath sounds normal. No Wheezing. No rales Abdomen: Soft and nontender. No rigidity. No distention. Skin: Skin warm and dry. Normal skin color. Normal skin turgor. Extremities: No lower extremity edema. No Lacerations. No Rash Neuro: Oriented X 3. No motor deficit. No sensory deficit. Moving all extremities. No slurred speech. CN 2 through 12 grossly intact Psych: calm, cooperative, normal affect Course Course Course Narrative: RME, this is a rapid medical exam performed by Monty Santana please refer to primary provider for complete H&P- 59 year old female presents for evaluation of abdominal pain, nausea, and vomiting. Symptoms started after eating sausage and her was also sick. She has not had anything to eat or drink since . Plan for labs, Medical Decision Making Medical Decision Making [facility] Narrative: My interpretation of labs: No significant abnormality in patient's hematology, chemistry serology Patient is in her room p.o. challenging herself , eating and drinking Patient was offered p.o. Zofran. Patient states that she feels well and feels comfortable going home. I discussed with the patient that she may have a few more episodes of nausea vomiting and even diarrhea at home. She will have medication available to her. Lab Data [facility] Lab Attestation statement: I reviewed the patient's lab results. 09/07/24 14:44 09/07/24 14:44 Labs: Lab Results 09/07/24 09/07/24 Range/Units 14:44 14:49 WBC 8.8 (4.8-10.8) X10*3/uL RBC 4.60 (4.20-5.50) X10*6/uL Hgb 13.7 (12.0-16.0) g/dl Hct 39.4 (37.0-47.0) % MCV 85.7 (80.0-98.0) fL MCH 29.8 (27.0-33.0) pg MCHC 34.8 (31.0-35.0) g/dl RDW 13.2 (11.0-16.0) % Plt Count 278 (160-400) X10*3/uL MPV 9.7 (9.4-12.3) fL Immature Gran % (Auto) 0.3 (0.0-0.4) % Neut % (Auto) 72.5 (45-73) % Lymph % (Auto) 19.5 L (20-40) % [place] % (Auto) 7.0 (2-11) % Eos % (Auto) 0.6 (0-4) % Baso % (Auto) 0.1 (0-2) % Lymph # (Auto) 1.7 (1.2-4.9) X10*3/uL [place] # (Auto) 0.6 (0.1-1.2) X10*3/uL Eos # (Auto) 0.1 (0.0-0.4) X10*3/uL Baso # (Auto) 0.0 (0.0-0.2) X10*3/uL Abs Immat Gran (auto) 0.03 (0.00-0.03) X10*3/uL Absolute Neuts (auto) 6.4 (2.0-8.3) x10*3/uL Absolute Nucleated RBC 0.000 (0.0-0.012) X10*3/uL Nucleated RBC % (auto) 0.0 (0.0-0.2) /100WBC Sodium 138 (135-145) mmol/L Potassium 3.4 (3.3-5.1) mmol/L Chloride 102 (96-108) mmol/L Carbon Dioxide 25 (22-29) mmol/L Anion Gap 14 (12-20) BUN 17 H (9-16) mg/dL Creatinine 0.89 (0.5-1.4) mg/dL Estim Creat Clear Calc 58.7 Estimated GFR > 60 Random Glucose 123 H (60-115) mg/dL Calcium 9.7 (8.4-10.2) mg/dL Magnesium 2.0 (1.6-2.6) mg/dL Total Bilirubin 1.0 (0.0-1.0) mg/dL Direct Bilirubin 0.4 (0.0-0.5) mg/dL AST 31 (5-31) U/L ALT 42 H (0-31) U/L Alkaline Phosphatase 88 (39-117) U/L Troponin I High Sens < 2.7 (<3.5-17.0) ng/L Total Protein 6.9 (6.5-8.0) g/dL Albumin 4.6 (3.5-5.0) g/dL Lipase 17 (8-78) U/L Urine Color Yellow Urine Appearance Hazy Urine pH 5.5 (5.0-9.0) Ur Specific [place] >= 1.030 H (1.005-1.025) Urine Protein Trace (Neg-Trace) mg/dL Urine Glucose (UA) Negative (Negative) mg/dL Urine Ketones Negative (Negative) mg/dL Urine Blood Negative (Negative) Urine Nitrite Negative (Negative) Ur Leukocyte Esterase Small (1+) H (Negative) Urine RBC 0-2 (0-2) /HPF Urine WBC 0-5 (0-5) /HPF Ur Squamous Epith Cells 3-5 (0-2) /HPF Urine Bacteria None Seen (None Seen) Hyaline Casts 0-2 (0-2) /LPF Influenza Type A (PCR) NEGATIVE (Negative) Influenza Type B (PCR) NEGATIVE (Negative) RSV RNA Qual (PCR) NEGATIVE (Negative) SARS-CoV-2 RNA (RT-PCR) NEGATIVE (Negative) Discharge Plan Discharge Clinical Impression: Nausea & vomiting Patient Disposition: Home, Self-Care Instructions: Acute Nausea and Vomiting (ED) Additional Instructions: Please follow-up with your primary care physician tomorrow. If you have any worsening or new symptoms, please return to the emergency room or call 911 Prescriptions: New ondansetron HCl 4 mg tablet 4 mg PO Q6H PRN (Reason: nausea and vomiting) Qty: 10 0RF No Action omeprazole 20 mg capsule,delayed release(DR/EC) 20 mg PO BID escitalopram oxalate [Lexapro] 20 mg tablet 20 mg PO DAILY atorvastatin 10 mg tablet 10 mg PO DAILY lorazepam 1 mg tablet 1 mg PO BID levothyroxine 25 mcg tablet 25 mcg PO DAILY azelastine 137 mcg (0.1 %) aerosol,spray intranasal benzonatate 200 mg capsule 200 mg PO BEDTIME PRN (Reason: cough) Qty: 10 0RF prednisone 10 mg tablet 10 mg PO DIRECTED Qty: 30 0RF Rx Instructions: see taper instructions; 50 mg Daily x2 days, 40mg x2 days, 30 mg daily x2 days, 20 mg daily x2 days, 10 mg daily x2 days epinephrine 0.3 mg/0.3 mL auto-injector 0.3 mg IM Q10M PRN (Reason: anaphylaxis) Qty: 2 0RF Rx Instructions: for 2 doses hydroxyzine HCl 25 mg tablet 25 mg PO BEDTIME PRN (Reason: itching) Qty: 7 0RF Print Language: [place]
--- NOTE | 2024-09-07 14:31 | ECG_ITS ---
Test Reason : PAIN Blood Pressure : */* mmHG Vent. Rate : 105 BPM Atrial Rate : 105 BPM P-R Int : 142 ms QRS Dur : 82 ms QT Int : 342 ms P-R-T Axes : 59 64 -6 degrees QTcB Int : 452 ms Sinus tachycardia T wave abnormality, consider inferior ischemia Abnormal ECG When compared with ECG of 11-Jun-2023 22:11, Nonspecific T wave abnormality now evident in Anterior leads Referred By: Pernell Santana Electronically Signed By: Bipin Aj
[2024-09-07 14:49] LABS: MANUAL DIFF FLAG NO
[2024-09-07 14:51] LABS: Basophils Percent Auto 0.1 % (0-2); Eosinophils Absolute Auto 0.1 X10*3/uL (0.0-0.4); Eosinophils Percent Auto 0.6 % (0-4); Hematocrit 39.4 % (37.0-47.0); Hemoglobin 13.7 g/dl (12.0-16.0); Imm Gran Abs Auto 0.03 X10*3/uL (0.00-0.03); Imm Gran Pct Auto 0.3 % (0.0-0.4); Lymphocytes Absolute Auto 1.7 X10*3/uL (1.2-4.9); Lymphocytes Percent Auto 19.5 % (20-40); Mean Corpuscular HGB Conc 34.8 g/dl (31.0-35.0); Mean Corpuscular Hemoglobin 29.8 pg (27.0-33.0); Mean Corpuscular Volume 85.7 fL (80.0-98.0); Mean Platelet Volume 9.7 fL (9.4-12.3); Monocytes Absolute Auto 0.6 X10*3/uL (0.1-1.2); Neutrophils Absolute Auto 6.4 x10*3/uL (2.0-8.3); Neutrophils Percent Auto 72.5 % (45-73); Platelet Count 278 X10*3/uL (160-400); Red Cell Distribution Width 13.2 % (11.0-16.0); White Blood Count 8.8 X10*3/uL (4.8-10.8)
[2024-09-07 14:58] LABS: Appearance Urine Hazy; Color Urine Yellow; Glucose Urine UA Negative (Negative); Leukocyte Esterase Urine Small (1+) (Negative); Nitrite Urine Negative (Negative); PH 5.5 (5.0-9.0); Specific Gravity - Urine >= 1.030 (1.005-1.025); UMIC TRIGGER UACC YES; Urine Blood Negative (Negative); Urine Ketones Negative (Negative); Urine Protein Trace mg/dL (Neg-Trace)
[2024-09-07 15:10] LABS: Troponin-I High Sensitivity < 2.7 ng/L (<3.5-17.0)
[2024-09-07 15:10] LABS: Bacteria Urine None Seen (None Seen); Hyaline Casts Urine 0-2 /LPF (0-2); RBC Urine 0-2 /HPF (0-2); UACC Culture Trigger YES; WBC Urine 0-5 /HPF (0-5)
[2024-09-07 15:11] LABS: Alanine Aminotransferase 42 U/L (0-31); Albumin Level 4.6 g/dL (3.5-5.0); Alkaline Phosphatase 88 U/L (39-117); Anion Gap 14 (12-20); Aspartate Amino Transferase 31 U/L (5-31); Bilirubin Direct 0.4 mg/dL (0.0-0.5); Blood Urea Nitrogen 17 mg/dL (9-16); Calcium 9.7 mg/dL (8.4-10.2); Carbon Dioxide 25 mmol/L (22-29); Chloride 102 mmol/L (96-108); Creatinine Clr Calc Pharmacy 58.7; Estimated Glomerular Filt Rate > 60; Glucose Random 123 mg/dL (60-115); Lipase 17 U/L (8-78); Potassium 3.4 mmol/L (3.3-5.1); Sodium 138 mmol/L (135-145); Total Protein 6.9 g/dL (6.5-8.0)
[2024-09-07 15:26] LABS: Influenza A PCR NEGATIVE (Negative); Influenza B PCR NEGATIVE (Negative); Resp Syncy Virus RNA Qual PCR NEGATIVE (Negative); SARS COV2 PCR INHOUSE NEGATIVE (Negative)
[2024-09-07 16:01] VITALS: BP 131/69; PULSE 99; RESP 18; TEMP 36.9; O2SAT 100
--- NOTE | 2024-09-07 17:06 | ED_ITS ---
HPI - Nausea/Vomiting/Diarrhea General Chief complaint: Nausea/Vomiting/Diarrhea Stated complaint: Food Poisoning Time Seen by Provider: 09/07/24 16:48 Source: patient Mode of arrival: ambulatory Limitations: no limitations Related Data Home Medications ?Medication ?Instructions ?Recorded ?Confirmed atorvastatin 10 mg tablet 10 mg PO DAILY 02/07/23 11/09/23 escitalopram oxalate 20 mg tablet 20 mg PO DAILY 02/07/23 11/09/23 (Lexapro) levothyroxine 25 mcg tablet 25 mcg PO DAILY 02/07/23 11/09/23 lorazepam 1 mg tablet 1 mg PO BID 02/07/23 11/09/23 omeprazole 20 mg capsule,delayed 20 mg PO BID 02/07/23 11/09/23 release azelastine 137 mcg (0.1 %) nasal intranasal 05/29/23 11/09/23 spray Previous Rx's ?Medication ?Instructions ?Recorded epinephrine 0.3 mg/0.3 mL 0.3 mg (0.3 mL) IM Q10M PRN 02/11/24 injection, auto-injector anaphylaxis #2 ea hydroxyzine HCl 25 mg tablet 25 mg PO BEDTIME PRN itching #7 05/25/24 tabs benzonatate 200 mg capsule 200 mg PO BEDTIME PRN cough #10 07/20/24 caps prednisone 10 mg tablet 10 mg PO DIRECTED #30 tabs 07/20/24 ondansetron HCl 4 mg tablet 4 mg PO Q6H PRN nausea and 09/07/24 vomiting #10 tabs Allergies Allergy/AdvReac Type Severity Reaction Status Date / Time zinc acetate Allergy Mild Hives Verified 09/07/24 14:33 [From Banophen Anti-Itch] Sulfa (Sulfonamide Allergy Unknown headache Verified 09/07/24 14:33 Antibiotics) amoxicillin Allergy Swelling Verified 09/07/24 14:33 topiramate AdvReac Unknown confusion Verified 09/07/24 14:33 Olay Soap Allergy Intermediate Hives Uncoded 09/07/24 14:33 [facility] Past Medical History Medical History Allergies Sinusitis Depression Social History Social History Alcohol intake: never Patient Tobacco Use Status: Never used Tobacco Smoked in Last 30 Days: No Use of substances other than those prescribed or required for medical reasons: No Advance Directives: No Advance Directives Information Provided: Yes Do you have a plan to hurt others: No Plan Patient : No Physical Exam 2 Vital Signs: Vital Signs: Last Vital Signs Temp 98.5 F 09/07/24 16:01 Pulse 99 09/07/24 16:01 Resp 18 09/07/24 16:01 BP 131/69 09/07/24 16:01 Pulse Ox 100 09/07/24 16:01 O2 Del Method Room Air 09/07/24 16:01 BMI result Body Mass Index 23.7 Medical Decision Making Lab Data 09/07/24 14:44 09/07/24 14:44 Labs: Lab Results 09/07/24 09/07/24 Range/Units 14:44 14:49 WBC 8.8 (4.8-10.8) X10*3/uL RBC 4.60 (4.20-5.50) X10*6/uL Hgb 13.7 (12.0-16.0) g/dl Hct 39.4 (37.0-47.0) % MCV 85.7 (80.0-98.0) fL MCH 29.8 (27.0-33.0) pg MCHC 34.8 (31.0-35.0) g/dl RDW 13.2 (11.0-16.0) % Plt Count 278 (160-400) X10*3/uL MPV 9.7 (9.4-12.3) fL Immature Gran % (Auto) 0.3 (0.0-0.4) % Neut % (Auto) 72.5 (45-73) % Lymph % (Auto) 19.5 L (20-40) % [place] % (Auto) 7.0 (2-11) % Eos % (Auto) 0.6 (0-4) % Baso % (Auto) 0.1 (0-2) % Lymph # (Auto) 1.7 (1.2-4.9) X10*3/uL [place] # (Auto) 0.6 (0.1-1.2) X10*3/uL Eos # (Auto) 0.1 (0.0-0.4) X10*3/uL Baso # (Auto) 0.0 (0.0-0.2) X10*3/uL Abs Immat Gran (auto) 0.03 (0.00-0.03) X10*3/uL Absolute Neuts (auto) 6.4 (2.0-8.3) x10*3/uL Absolute Nucleated RBC 0.000 (0.0-0.012) X10*3/uL Nucleated RBC % (auto) 0.0 (0.0-0.2) /100WBC Sodium 138 (135-145) mmol/L Potassium 3.4 (3.3-5.1) mmol/L Chloride 102 (96-108) mmol/L Carbon Dioxide 25 (22-29) mmol/L Anion Gap 14 (12-20) BUN 17 H (9-16) mg/dL Creatinine 0.89 (0.5-1.4) mg/dL Estim Creat Clear Calc 58.7 Estimated GFR > 60 Random Glucose 123 H (60-115) mg/dL Calcium 9.7 (8.4-10.2) mg/dL Magnesium 2.0 (1.6-2.6) mg/dL Total Bilirubin 1.0 (0.0-1.0) mg/dL Direct Bilirubin 0.4 (0.0-0.5) mg/dL AST 31 (5-31) U/L ALT 42 H (0-31) U/L Alkaline Phosphatase 88 (39-117) U/L Troponin I High Sens < 2.7 (<3.5-17.0) ng/L Total Protein 6.9 (6.5-8.0) g/dL Albumin 4.6 (3.5-5.0) g/dL Lipase 17 (8-78) U/L Urine Color Yellow Urine Appearance Hazy Urine pH 5.5 (5.0-9.0) Ur Specific [place] >= 1.030 H (1.005-1.025) Urine Protein Trace (Neg-Trace) mg/dL Urine Glucose (UA) Negative (Negative) mg/dL Urine Ketones Negative (Negative) mg/dL Urine Blood Negative (Negative) Urine Nitrite Negative (Negative) Ur Leukocyte Esterase Small (1+) H (Negative) Urine RBC 0-2 (0-2) /HPF Urine WBC 0-5 (0-5) /HPF Ur Squamous Epith Cells 3-5 (0-2) /HPF Urine Bacteria None Seen (None Seen) Hyaline Casts 0-2 (0-2) /LPF Influenza Type A (PCR) NEGATIVE (Negative) Influenza Type B (PCR) NEGATIVE (Negative) RSV RNA Qual (PCR) NEGATIVE (Negative) SARS-CoV-2 RNA (RT-PCR) NEGATIVE (Negative) Discharge Plan Discharge Clinical Impression: Nausea & vomiting Patient Disposition: Home, Self-Care Instructions: Acute Nausea and Vomiting (ED) Additional Instructions: Please follow-up with your primary care physician tomorrow. If you have any worsening or new symptoms, please return to the emergency room or call 911 Prescriptions: New ondansetron HCl 4 mg tablet 4 mg PO Q6H PRN (Reason: nausea and vomiting) Qty: 10 0RF No Action omeprazole 20 mg capsule,delayed release(DR/EC) 20 mg PO BID escitalopram oxalate [Lexapro] 20 mg tablet 20 mg PO DAILY atorvastatin 10 mg tablet 10 mg PO DAILY lorazepam 1 mg tablet 1 mg PO BID levothyroxine 25 mcg tablet 25 mcg PO DAILY azelastine 137 mcg (0.1 %) aerosol,spray intranasal benzonatate 200 mg capsule 200 mg PO BEDTIME PRN (Reason: cough) Qty: 10 0RF prednisone 10 mg tablet 10 mg PO DIRECTED Qty: 30 0RF Rx Instructions: see taper instructions; 50 mg Daily x2 days, 40mg x2 days, 30 mg daily x2 days, 20 mg daily x2 days, 10 mg daily x2 days epinephrine 0.3 mg/0.3 mL auto-injector 0.3 mg IM Q10M PRN (Reason: anaphylaxis) Qty: 2 0RF Rx Instructions: for 2 doses hydroxyzine HCl 25 mg tablet 25 mg PO BEDTIME PRN (Reason: itching) Qty: 7 0RF Print Language: [place]
[2024-09-07] MEDS: Ondansetron ODT 4 MG TAB.RAPDIS TRANSLINGU (17:17)
[2024-09-07 17:20] VITALS: BP 131/69; PULSE 99; RESP 18; TEMP 36.9; O2SAT 100
== END 2024-09-07 17:21 | disposition home or self-care (01) ==
PROVIDERS: Physician Assistant; Emergency Provider Emergency Medicine
DX: R11.2 Nausea with vomiting, unspecified (principal); Z03.818 Encounter for observation for suspected exposure to other biological agents ruled out; Z79.899 Other long term (current) drug therapy
CPT/HCPCS: 0241U; 36415; 80048; 80076; 81001; 83690; 83735; 84484; 85025; 87086; 87147; 93005; 99283; 99285

== ENCOUNTER → 2024-09-07 14:31 | Outpatient (BNV) | payer MEDICARE, MEDICAID, SELFPAY | PROVIDERS: Emergency Provider Emergency Medicine; Visit Provider Internal Medicine Cardiovascular Disease | DX: R00.0 Tachycardia, unspecified (principal) | CPT/HCPCS: 93010 ==

== ENCOUNTER 2024-09-24 09:18 | Outpatient (AMB) | payer MEDICARE, MEDICAID, SELFPAY ==
[2024-09-24 09:58] VITALS: BP 124/74; PULSE 90; TEMP 36.8; O2SAT 98; BMI 26.4
--- NOTE | 2024-09-24 09:58 | AM.OFFWIN_ITS ---
Intake Vital Signs 09/24/24 09:58 Height 5 ft 4 in Weight 154 lb BMI 26.4 BP 124/74 Blood Pressure Location Rt brachial Position Sitting Pulse 90 Pulse Source Pulse Oximeter Temp 98.2 F Temp Source Oral Pulse Oximetry (%) 98 Oxygen Delivery Method Room Air Intake Visit Reasons: EP eye redness Intake Note: Pt presents to the office today for c/o left eye redness. Pt states she woke up like this. Patient Tobacco Use Status: Never used Tobacco Allergies zinc acetate [From Banophen Anti-Itch] Allergy (Mild, Verified 09/24/24 10:02) Hives Sulfa (Sulfonamide Antibiotics) Allergy (Unknown, Verified 09/24/24 10:02) headache amoxicillin Allergy (Verified 09/24/24 10:02) Swelling topiramate Adverse Reaction (Unknown, Verified 09/24/24 10:02) confusion Olay Soap Allergy (Intermediate, Uncoded 09/24/24 10:02) Hives HPI HPI Comments History of Present Illness Details Patient is a 59-year-old female complaining of left inner eye/outer nose swelling after eating cherries and pistachios yesterday. She states she has multiple food allergies and she is not sure which 1 she is allergic to but her eye was swollen when she woke up this morning. She can not use Benadryl because it makes her too tired and she has to go to work but she does use Pataday allergy eyedrops daily and says she did use them this morning and it did not help reduce the swelling. She tells me that when this happens the only thing that helps his prednisone. She denies any changes in her vision or blurry vision REPLACED BY [facility] Medical History Allergies Sinusitis Depression Social History Alcohol intake: never Patient Tobacco Use Status: Never used Tobacco Review of Systems Const All systems reviewed & are unremarkable except as noted in HPI and below Physical Exam Vital Signs: Last Vital Signs Temp 98.2 F 09/24/24 09:58 Pulse 90 09/24/24 09:58 BP 124/74 09/24/24 09:58 Pulse Ox 98 09/24/24 09:58 Oxygen Delivery Method Room Air 09/24/24 09:58 BMI result Body Mass Index 26.4 Const General: cooperative, healthy appearing, comfortable, no acute distress and well developed Orientation/consciousness: patient oriented x3 Limitations: no limitations HEENT Head: Yes normal to inspection Ears: hearing grossly normal bilaterally General nose exam: Normal external nose present Face and sinus: Yes normal facial exam Eyes General: appearance normal, both eyes and all related structures Visual Palma: normal visual palma by confrontation Alignment and Position: alignment normal Periorbital: periorbital findings abnormal left (inner canthus edema) Eyelids: Yes eyelids normal Conjunctivae: conjunctivae normal Pupils: Equal, round and reactive pupils present and Pupils normal by confrontation EOM: EOMs intact bilaterally Neck Neck: Yes normal visual inspection and Yes full ROM Resp Effort & Inspection: normal respiratory effort and able to speak in complete sentences Skin General skin exam: no rashes or lesions noted Neuro General: patient oriented x3 Cranial nerves: Yes Equal, round and reactive pupils present Extrem General: Yes normal to inspection Assessment & Plan Assessment & Plan (1) Allergic eye reaction: Code(s): H57.9 - Unspecified disorder of eye and adnexa Plan: Gave her 10 mg of prednisone for 5 days, encouraged her to take Benadryl at night and continue the Pataday drops. Ended she stay away from neal's and pistachios. Medications: New prednisone 10 mg PO QAM 5 tabs 0RF Coding Level of Care Code Est Pt Level 3 (62627) Diagnoses Allergic eye reaction H57.9
== END 2024-09-24 10:45 | disposition home or self-care (01) ==
PROVIDERS: Visit Provider Physician Assistant
DX: H57.9 Unspecified disorder of eye and adnexa (principal)

== ENCOUNTER → 2024-09-24 09:18 | Outpatient (BNVA) | payer MEDICARE, MEDICAID, SELFPAY | PROVIDERS: Visit Provider Physician Assistant | DX: H57.9 Unspecified disorder of eye and adnexa (principal) | CPT/HCPCS: 99212 ==

== ENCOUNTER 2025-01-07 08:12 | Outpatient (AMB) | payer MEDICARE, MEDICAID, SELFPAY ==
--- NOTE | 2025-01-07 08:13 | AM.OFFWIN_ITS ---
Intake Vital Signs 01/07/25 08:14 Height 5 ft 4 in Weight 156 lb BMI 26.8 BP 110/80 Blood Pressure Location Rt brachial Position Sitting Respiration 16 Pulse 100 Pulse Source Pulse Oximeter Temp 98.2 F Temp Source Oral Pulse Oximetry (%) 97 Oxygen Delivery Method Room Air Intake Visit Reasons: ep reaction to covid shot hives Intake Note: Pt is here today c/o hives due to getting the covid vaccine Patient Tobacco Use Status: Never used Tobacco Allergies zinc acetate (From Banophen Anti-Itch) Allergy (Mild, Verified 01/07/25 08:19) Hives Sulfa (Sulfonamide Antibiotics) Allergy (Unknown, Verified 01/07/25 08:19) headache amoxicillin Allergy (Verified 01/07/25 08:19) Swelling topiramate Adverse Reaction (Unknown, Verified 01/07/25 08:19) confusion Olay Soap Allergy (Intermediate, Uncoded 01/07/25 08:19) Hives COVID vaccine Adverse Reaction (Uncoded 01/07/25 08:19) hives HPI HPI Comments History of Present Illness Details History - The patient is a 59-year-old female pr esenting with hives following a COVID-19 vaccination. - The hives appeared after the COVID-19 vaccine all over her body. - She states that she has been very itch y all over. - She has a history of allergic reaction s, notably to beeswax, necessitating the removal of beeswax-containing products. - Environmental allergies have been prob lematic, linked to changes in climate and allergens. - She reports mild shortness of breath a nd wheezing, related to a recent cold. - Claritin has been used for symptom man agement, offering temporary relief but then the itching returns. - She denies swelling to the lips, sore throat, CP, or SOB. Physical Exam General: Cooperative, healthy appearing, comfortable, no acute distress and well developed Orientation: Patient oriented x3 Limitations: No limitations Neck: Normal visual inspection and Yes full ROM Respiratory: Normal respiratory effort and able to speak in complete sentences. Clear to auscultation bilaterally. No w/r/r noted. Cardiovascular: RRR, no m/r/g noted. Normal S1 and S2 Skin: Diffuse uricaria noted on the abdomen, flanks, back and legs. No lesions noted. Patient was informed and verbally consented to the use of an ambient scribe for clinic note documentation during this visit [facility] Medical History Allergies Sinusitis Depression Social History Alcohol intake: never Patient Tobacco Use Status: Never used Tobacco Review of Systems Const All systems reviewed & are unremarkable except as noted in HPI and below Physical Exam Vital Signs: Last Vital Signs Temp 98.2 F 01/07/25 08:14 Pulse 100 01/07/25 08:14 Resp 16 01/07/25 08:14 BP 110/80 01/07/25 08:14 Pulse Ox 97 01/07/25 08:14 Oxygen Delivery Method Room Air 01/07/25 08:14 BMI result Body Mass Index 26.8 Assessment & Plan Assessment & Plan (1) Rash: Code(s): R21 - Rash and other nonspecific skin eruption Plan Most likely urticaria after the covid vaccine Plan - Initiate treatment with prednisone, Pepcid, and Claritin for urticaria management. - Prescribe prednisone 60 mg for five days as a high-dose burst therapy to manage severe urticaria. - Advise the patient to seek emergency care if symptoms worsen, including shortness of breath or chest pain. Medications: New prednisone 60 mg (3 x 20 mg) PO daily 15 tabs 0RF famotidine (Pepcid) 20 mg PO DAILY 30 tabs 0RF 30 days Coding Level of Care Code Est Pt Level 3 (52049) Diagnoses Rash R21
[2025-01-07 08:14] VITALS: BP 110/80; PULSE 100; RESP 16; TEMP 36.8; O2SAT 97; BMI 26.8
== END 2025-01-07 08:35 | disposition home or self-care (01) ==
PROVIDERS: Visit Provider Physician Assistant Medical
DX: R21 Rash and other nonspecific skin eruption (principal)

== ENCOUNTER → 2025-01-07 08:12 | Outpatient (BNVA) | payer MEDICARE, MEDICAID, SELFPAY | PROVIDERS: Visit Provider Physician Assistant Medical | DX: R21 Rash and other nonspecific skin eruption (principal) | CPT/HCPCS: 99212 ==

== ENCOUNTER 2025-02-25 17:28 | Emergency (ER) | payer MEDICARE, MEDICAID, SELFPAY ==
--- NOTE | ~2025-02-25 | XR_ITS ---
CLINICAL HISTORY: 8 days constipation 1 view abdomen Comparison: None provided Findings: Nonobstructive bowel gas pattern. Large stool burden in the colon. No large volume pneumoperitoneum. No pneumatosis. No abnormal calcifications. No acute fractures. IMPRESSION: Large volume stool in the colon. This document has been electronically signed by: Basilia Castro MD on 02/25/2025 18:56:31
[2025-02-25 17:38] VITALS: BP 138/63; PULSE 107; RESP 18; TEMP 37.2; O2SAT 98; BMI 26.3
--- NOTE | 2025-02-25 17:40 | ED_ITS ---
HPI - General Adult General Chief complaint: General Medical Stated complaint: General Medical Time Seen by Provider: 02/25/25 21:04 Source: patient Limitations: no limitations History of Present Illness ED Provider: Ileana Medrano PA-C HPI narrative: 59-year-old female with a history of obesity, chronic constipation, hyperlipidemia, GERD, hypothyroidism, who presents with constipation. Patient's last bowel movement was 4 days ago. Denies abdominal distention, nausea vomiting or inability to pass flatus. Patient states it is typical for her to go several days without having a bowel movement. She states she has increased her fiber intake. Related Data Home Medications ?Medication ?Instructions ?Recorded ?Confirmed atorvastatin 10 mg tablet 10 mg PO DAILY 02/07/2310/14 levothyroxine 25 mcg tablet 25 mcg PO DAILY 02/07/23 0 11/09/23 lorazepam 1 mg tablet 1 mg PO BID 02/07/23 4 omeprazole 20 mg capsule,delayed 20 mg PO BID 02/07/23 11/09/23 release azelastine 137 mcg (0.1 %) nasal intranasal 05/29/23 0 11/09/23 spray Previous Rx's ?Medication ?Instructions ?Recorded epinephrine 0.3 mg/0.3 mL 0.3 mg (0.3 mL) IM Q10M PRN 02/11/24 injection, auto-injector anaphylaxis #2 ea ondansetron HCl 4 mg tablet 4 mg PO Q6H PRN nausea and 09/07/24 vomiting #10 tabs famotidine 20 mg tablet (Pepcid) 20 mg PO DAILY 30 day s #30 tabs 01/07/25 prednisone 20 mg tablet 60 mg (3 x 20 mg) PO daily # 15 tabs 01/07/25 Allergies Allergy/AdvReac Type Severity Reaction Status Date / Time zinc acetate (From Banophen Allergy Mild Hives Verified 02/25/25 17:39 Anti-Itch) Sulfa (Sulfonamide Allergy Unknown headache Verified 02/25/25 17:39 Antibiotics) amoxicillin Allergy Swelling Verified 02/25/25 17:39 topiramate AdvReac Unknown confusion Verified 02/25/25 17:39 Olay Soap Allergy Intermediate Hives Uncoded 01/07/25 08:19 COVID vaccine AdvReac hives Uncoded 01/07/25 08:19 Review of Systems Review of Systems: Yes all other systems are reviewed and are negative Constitutional: Constitutional: Denies fatigue and Denies fever(s) Cardiovascular: Cardiovascular: Denies chest pain and Denies dyspnea Respiratory: Respiratory: Denies dyspnea Gastrointestinal: Gastrointestinal: Denies abdominal pain, Denies bloating, Reports constipation, Denies nausea and Denies vomiting Endocrine: Endocrine: Denies fatigue PMFSH Past Medical History Attestation statement: The following information was validated with the patient. Medical History Allergies Sinusitis Depression Social History Social History Alcohol intake: never Patient Tobacco Use Status: Never used Tobacco Smoked in Last 30 Days: No Use of substances other than those prescribed or required for medical reasons: No Advance Directives: No Advance Directives Information Provided: Yes Patient : No Physical Exam ED Vital Signs: Vital Signs - 24 hr 02/25/25 17:38 02/25/25 20:51 Temperature 99.0 F 98.1 F Pulse Rate 107 H 103 H Respiratory Rate 18 15 Blood Pressure 138/63 143/86 H Pulse Oximetry 98 96 Oxygen Delivery Method Room Air Room Air BMI result Body Mass Index 26.3 Const Other: Alert well-appearing Orientation/consciousness: patient oriented x3 Resp Effort & Inspection: normal respiratory effort Cardio Other: normal peripheral perfusion GI Other: soft objectively mildly distended, nontender no guarding Skin Other: warm dry no rash Neuro General: patient oriented x3, gait normal, no focal motor deficits and CN's II- XI intact bilaterally Psych Other: cooperative Course Course Course Narrative: RME: 59 yold female presents to the ED for 8 days of constipation and today patient finally had 4 bowel movements. Patient was sent to the ED by PCP to make sure there no other constipations. Patient presently is asymptoamtic. Medical Decision Making Medical Decision Making [facility] Narrative: 59-year-old female with a history of obesity, chronic constipation, hyperlipidemia, GERD, hypothyroidism, who presents with constipation. Patient's last bowel movement was 4 days ago. Denies abdominal distention, nausea vomiting or inability to pass flatus. Patient states it is typical for her to go several days without having a bowel movement. She states she has increased her fiber intake. problem: Age, hypothyroidism, chronic constipation History: Per patient I have considered the following differential diagnoses: Constipation, obstipation, bowel obstruction, fecal impaction Plan: KUB ordered from triage, she is considerably constipated without fecal impaction. She has no symptoms concerning for bowel obstruction. We will send her with a an aggressive bowel regimen I have independently reviewed the following tests: KUB:Findings: Nonobstructive bowel gas pattern. Large stool burden in the colon. No large volume pneumoperitoneum. No pneumatosis. No abnormal calcifications. No acute fractures. IMPRESSION: Large volume stool in the colon. Differential Diagnosis Differential Diagnoses: The differential diagnosis associated with the presentation includes see MDM Admission/Observation Consideration of admission/observation: Escalation of care including admission/observation considered not applicable Radiology Impression Discussion of test interpretation with radiology: I have reviewed the radiologist's reading. Discharge Plan Discharge Clinical Impression: Constipation Patient Disposition: Home, Self-Care Instructions: Constipation (ED) Additional Instructions: The x-ray reveals a you were considerably constipated. See home care instructions. If you consume additional fiber, you need to consume additional water, drank up to 96 oz a day. Otherwise the fiber itself will Cause constipation. Take 3 capsules of Colace tomorrow morning, then moving forward, take [id number] Colace, 2 times a day. Take mljh-flu-axalwls MiraLax, every hour, until you begin having multiple large volume bowel movements. You are essentially doing a bowel prep. I would start this process tomorrow morning. once you clear your current stool burden, you need to stay on the Colace twice a day, like I said in the above directions, use the MiraLax 3 times a day, to help maintain regular Bowel habits. Follow up with your primary care as needed. Prescriptions: No Action ondansetron HCl 4 mg tablet 4 mg PO Q6H PRN (Reason: nausea and vomiting) Qty: 10 0RF omeprazole 20 mg capsule,delayed release(DR/EC) 20 mg PO BID atorvastatin 10 mg tablet 10 mg PO DAILY lorazepam 1 mg tablet 1 mg PO BID levothyroxine 25 mcg tablet 25 mcg PO DAILY azelastine 137 mcg (0.1 %) aerosol,spray intranasal prednisone 20 mg tablet 60 mg PO daily Qty: 15 0RF famotidine [Pepcid] 20 mg tablet 20 mg PO DAILY 30 Days Qty: 30 0RF epinephrine 0.3 mg/0.3 mL auto-injector 0.3 mg IM Q10M PRN (Reason: anaphylaxis) Qty: 2 0RF Rx Instructions: for 2 doses Interventions: ED Discharge Assessment Last Done: 02/25/25 22:13 Discharge Date/Time: 02/25/25 22:21 Print Language: Malian
[2025-02-25 20:51] VITALS: BP 143/86; PULSE 103; RESP 15; TEMP 36.7; O2SAT 96
--- OUTSIDE RECORDS SUMMARY | 2025-02-25 20:52 | XMS_ITS | Clinical Summary ---
Author Organization [address] Address [address] [place] [phone] Phone Care Team Providers Care Automotive Worker Name Role Phone Hussein Delgado MD Primary Care Provider Allergies Active Allergy Reactions Criticality Noted Date Comments Amoxicillin 06/14/2023 Other 05/16/2023 Flu Virus Vaccine Sulfa (Sulfonamide Antibiotics) 04/2023 Sulfa Drugs Medications butalbit/acetam in/caff/codeine (BUTALBITAL-CRUZ [id number] ORAL) BUTALBITAL-AP AP-CAFF-COD OR Take by mouth Unknown presriber Active atorvastatin (LIPITOR) 10 mg tablet Take 1 tablet (10 mg total) by mouth 1 (one) time each day. 90 tablet 1 5 Active levothyroxine (SYNTHROID, LEVOTHROID) 25 mcg tablet Take 1 tablet (25 mcg total) by mouth 1 (one) time each day. 90 tablet 1 5 Active loratadine (CLARITIN) 10 mg tablet Take 1 tablet (10 mg total) by mouth 1 (one) time each day if needed for allergies. 90 each 1 5 Active omeprazole (PriLOSEC) [address] capsule Take 1 capsule (20 mg total) by mouth 2 (two) times a day. 180 capsule 5 Active benzonatate (TESSALON) 100 mg capsule Take 1 capsule (100 mg total) by mouth 3 (three) times a day if needed for cough. Do not crush or chew. 42 capsule 02/28/20 Active acetaminophen (Tylenol 8 Hour) 650 mg 8 hr tablet Take 1 tablet (650 mg total) by mouth every 8 (eight) hours if needed for mild pain. Do not crush, chew, or split. 60 tablet 2 5 01/29/20 Discontinu ed(Therapy completed) omeprazole (PriLOSEC) [address] capsule TAKE 1 CAPSULE BY MOUTH 1 TIME EACH DAY. 90 capsule 01/28/20 Discontinu ed(Reorder ) Hospital, Clinic, or Other Facility Administered Medication Ordered Dose Route Frequency Start Date End Date Status triamcinolone acetonide (KENALOG-40) 40 mg/mL injection 40 mgIndications:Trigge r thumb of left hand,Trigger thumb of right hand 40 mg Once PRN Procedure 01/27/2025 01/27/2025 Ended triamcinolone acetonide (KENALOG-40) 40 mg/mL injection 40 mgIndications:Trigge r thumb of left hand,Trigger thumb of right hand 40 mg Once PRN Procedure 01/27/2025 01/27/2025 Ended Active Problems Problem Noted Date Diagnosed Date Anxiety and depression 10/28/2024 Hyperlipidemia 10/28/2024 Overweight (BMI 25.0-29.9) 04/30/2024 Chronic pain of both hips 04/30/2024 Allergy 06/14/2023 Hyperglycemia 06/14/2023 Hypothyroidism 06/14/2023 Pure hypercholesterolemia 06/14/2023 Encounters Date Type Department Care Team Description 02/22/2025 Telephone Adult Medicine [address] [phone] Hussein Delgado MD 01/28/2025 2:00 PM EDT Office Visit Adult Medicine [address] [phone] Rashaun Urias NP Acute cough (Primary Dx); Sore throat; Elevated blood pressure reading; Gastroesophageal reflux disease without esophagitis 01/27/2025 8:30 AM EDT Office Visit Orthopedic Surgery - [address] [place] [phone] Kurt Zuniga MD Trigger thumb of left hand (Primary Dx); Trigger thumb of right hand 01/15/2025 Telephone Adult [address] [phone] Sulaiman [place] 01/15/2025 Telephone Adult [address] [phone] Farzana Herring MD 01/07/2025 Telephone Adult Medicine [address] [phone] Farzana Herring MD from Last 3 Months Surgical History Surgery Date Site/Laterality Comments HAND SURGERY 04/15/2020 - 04/14/2021 Right fractured from fall injury Medical History Medical History Date Comments Allergy DX:Allergy Hypothyroidism DX:Hypothyroidis m Pure hypercholesterolemia DX:Pur e hypercholesterolemia Social History Tobacco Use Types Packs/Day Years Used Date Smoking Tobacco: Never Smokeless Tobacco: Never Tobacco Cessation:Counseling Given: Not Answered Alcohol Use Standard Drinks/Week Comments Never 0 (1 standard drink = 0.6 oz pur e alcohol) Housing Instability Answer Date Recorde d Are you worried that in the next 2 months you may not have stable housing? No 01/28/2025 Food Access & Nutrition Answer Date Rec orded Do you have access to a vari ety of food including fruits and vegetables? Yes 01/28/2025 Access to Healthcare Answer Date Record ed Within the last 3 months, ho w many times did you visit the emergency department for your medical care? 2 01/28/2025 Health Literacy Answer Date Recorded How often do you need to hav e someone help you when you read instructions, pamphlets, or other written material from your doctor or pharmacy? Often 01/28/2025 Caregiver: How often do you need to have someone help you when you read instructions, pamphlets, or other written material from your doctor or pharmacy? Not on file 01/28/2025 Financial Risk Answer Date Recorded How hard is it for you to pa y for the very basics like food, housing, medical care, and air conditioning / heating? Not very hard 01/28/2025 Transportation Answer Date Recorded Has the lack of transportati on kept you from meetings, work, or from getting things needed for daily living? No Has the lack of transportati on kept you from medical appointments or from getting medications? No 01/28/2025 Social Isolation Answer Date Recorded How often do you feel lonely or isolated from th ose around you? Never 01/28/2025 Food Risk Answer Date Recorded Within the past 12 months we worried whether our food would run out before we got money to buy more. Never true 01/28/2025 Within the past 12 months th e food we bought just didn't last and we didn't have money to get more. Never true 01/28/2025 Dependent Care Answer Date Recorded Do you need help finding or paying for care for your loved ones. For example, attendant children's institution or elderly care for an older adult? No 01/28/2025 Education Answer Date Recorded Do you think completing more education or training, like finishing a GED, going to college, or learning a trade, would be helpful for you? No 01/28/2025 Employment and Income Answer Date Recor ded During the last four weeks, have you been actively looking for work? No 01/28/2025 Living Situation Answer Date Recorded What is your living situation? Unrecognized valu e 01/28/2025 Comments No Sex and Gender Information Value Date Recorded Sex Assigned at Not on file Legal Sex Female 11:03 AM EDT Gender Identity Not on file Sexual Orientation Not on file Obstetrics History Last Filed Vital Signs Vital Sign Reading Time Taken Comments Blood Pressure 148/84 01/28/2025 2:35 PM EDT Pulse 79 01/28/2025 1:51 PM EDT Temperature 36.3 C (97.4 F) 01/28/2025 1:51 PM EDT Respiratory Rate 12 04/30/2024 10:32 AM EST Oxygen Saturation 99% 01/28/2025 1:51 PM EDT Inhaled Oxygen Concentration - - Weight 70.8 kg (156 lb) 01/28/2025 1:51 PM EDT Height 162.6 cm (5' 4 ) 01/28/2025 1:51 PM EDT Body Mass Index 26.78 01/28/2025 1:51 PM EDT Plan of Treatment Upcoming Encounters Date Type Department Care Team (Late st Contact Info) Description 03/23/2025 1:00 PM EST Office Visit Adult Medicine [address] [phone] Hussein Delgado MD [address] [place] [address] 03/24/2025 8:30 AM EST Office Visit Orthopedic Surgery - [address] [phone] Luis Felipe Raman, DPTeagan [address] [address] 10/07/2025 11:30 AM EDT Office Visit Adult [address] [phone] Hussein Delgado MD [address] [place] [address] Health Maintenance Due Date Last Done Comments Breast Cancer Screening 1965 Colorectal Cancer Screening: Colonoscopy 1965 DTaP,Tdap,and Td Vaccines (1 - Tdap) 1984 Hepatitis B Vaccines (1 of 3 - 19+ 3-dose series) 1984 Cervical Cancer Screening: P ap Smear 1986 Pneumococcal Vaccine: 50+ Years (1 of 1 - PCV) 06/29/2015 HIV Screening 11/08/2023 Medicare Annual Wellness Visit 11/08/2023 Influenza Vaccine (#1) 2024 Zoster Vaccines (2 of 2) 03/02/2025 01/05/2025 Social Influencers of Health Screening 01/28/2026 01/28/2025 Cholesterol Screening (Lipid Panel) 10/28/2029 10/28/2024, 05/11/2024, 05/16/2023 RSV Immunization Adult Patients (1 - 1-dose 75+ series) 2040 Hepatitis C Screening Completed 05/16/2023 COVID-19 Vaccine Completed 01/05/2025 Depression Screening Completed 01/28/2025 HIB Vaccines Aged Out No longer eligi [...] age to complete this topic Meningococcal B Vaccine Aged Out No l onger eligible based on patient's age to complete this topic RSV Immunization Patients Under 20 months Aged Out No longer eligible b ased on patient's age to complete this topic Varicella Vaccines Aged Out No longer eligible based on patient's age to complete this topic Procedures Procedure Name Priority Date/Time Associated Diagnosis Comments MT INJECTION SINGLE TENDON SHEATH OR LIGAMENT APONEUROSIS Routine 01/27/2025 8:30 AM EDT Trigger thumb of left hand Trigger thumb of right hand LIPID PANEL WITH REFLEX TO DIRECT LDL Routine 10/28/2024 8:59 AM EDT Hyperlipidemia, unspecified hyperlipidemia type HEPATITIS C SCREENING Routine 05/16/2023 from Last 3 Months or Most Recently Relevant to Health Maintenance Results * MT INJECTION SINGLE TENDON SHEATH OR LIGAMENT APONEUROSIS (01/27/2025 8:30 AM EDT) Kurt Alaniz MD - 01/27/2025 8:30 AM EDT Kurt Zuniga MD 01/27/2025 9:25 AM Hand / UE Inj/Asp: bilateral thumb A1 for trigger finger Indications: pain Details: 27 G needle, volar approach Medications (Right): 40 mg triamcinolone acetonide 40 mg/mL Medications (Left): 40 mg triamcinolone acetonide 40 mg/mL Outcome: tolerated well, no immediate complications Site was prepped in standard fashion using alcohol swab, sterile technique was used to perform the injection, the patient tolerated the procedure well and a band-aid dressing was applied Informed Consent: Site: Bilateral thumb Laterality: Bilateral Relevant images/test results available and reviewed: yes Health status cleared: Yes Procedure/treatment, purpose, treatment alternatives, risks/potential complications and benefits explained: yes Risk/complications/benefits details: Risk/complications/benefits details: Risks and benefits of corticosteroid injection were discussed, including risk of pain, bleeding, infection, tissue attenuation, tendon rupture, changes in skin color, and injury to surrounding structures such as arteries, veins and nerves. We also discussed the patient may develop worsening pain for a few days before having improvement in their symptoms. Patient questions answered: yes Patient agrees, verbalizes understanding, and wants to proceed: yes Consent given by: Patient Informed consent discussion completed by Physician/COLTEN with patient: Verbal Pre-procedure timeout performed: yes us Kurt Zuniga MD IN CLINIC/BEDSIDE ORDERABLES Fin al Result * (ABNORMAL) Lipid panel with reflex to direct LDL (10/28/2024 8:59 AM EDT) Cholesterol 192 0 - 200 mg/dL LAB CHE[facility]STR[facility] Triglycerides 183(H) 0 - 150 mg/dL LAB CHEMISTRY METHOD 10/28/2024 1:53 PM [facility] HDL 49 >=40 mg/dL LAB CHEMISTRY METHOD 10/28/2024 1:53 PM [facility] LDL Calculated 106(H) 0 - 100 mg/dL LAB CHEMISTRY METHOD 10/28/2024 1:53 PM [facility] VLDL Cholesterol Rambo 36.6 mg/dL LAB CHEMISTRY METHOD 10/28/2024 1:53 PM [facility] Non HDL Chol. (LDL+VLDL) 143 <145 mg/dL LAB CHEMISTRY METHOD 10/28/2024 1:53 PM [facility] Chol/HDL Ratio 3.9 0.0 - 4.4 LAB CHEMISTRY METHOD 10/28/2024 1:53 PM [facility] Blood Venous blood specimen / Unknown Venipuncture / Unknown 10/28/2024 8:59 AM EDT 10/28/2024 8:59 AM EDT Farzana Herring MD LAB BLOOD ORDERABLES Final Result [facility] [address] [place] [address], [place] [phone] * Hepatitis C Screening (05/16/2023) [facility] Hepatitis C Screening abstracted Historical Provider HEALTH MAINTENANCE Final Result from Last 3 Months or Most Recently Relevant to Health Maintenance Insurance [employer] MEDICARE Care Teams Automotive Worker Relationship Specialty Start Date End Date Hussein Delgado MD [address] [place] [phone] PCP - General Internal Medicine 01/15/25
--- OUTSIDE RECORDS SUMMARY | 2025-02-25 20:52 | XMS_ITS | Encounter Summary ---
Author Organization [facility] Address [address] [place] [address] Care Team Providers Care It Analyst Name Role Phone Hussein Delgado MD Primary Care Provider Reason for Visit * Reason Onset Date Comments Abdominal Cramping 02/22/2025 Encounter Details Date Type Department Care Team (Late st Contact Info) Description 02/22/2025 Telephone Adult Medicine [facility] [address] [place], [place] [phone] Hussein Delgado MD [address] [place], [place] Social History Tobacco Use Types Packs/Day Years [...] on file Sexual Orientation Not on file documented as of this encounter Progress Notes * Mary Garcia RN - 02/25/2025 10:09 AM EST Pt. States she has been having problems with constipation . I can't have a BM without taking Doculax pt. States this has been going on for a month . She took 2 Doculax and next day took 3 , she finally had a very small brown bm today but prior to this very small bm has not had a bm x 7-8 days , Her abd. Is bloated, distended and hard. No abd. Pain , no n/v , no fever or chills no cp or sob . I have constipation but this is scary I advised pt. Although she had a very sm. bm today if her abd. Is hard, distended and and prior has not had a BM x 7-8 days to be evaluated in the ER. Pt. agrees * Brianna Berger - 02/25/2025 9:46 AM EST Patient still constipated over a month. Dulcolax didn't work. Please advise * Berna St RN - 02/22/2025 10:04 AM EST Spoke with the pt Is only able to move bowels if using dulcolax History or constipation It worries her that the only time she moves bowels is with dulcolax Used Milarlax X1 without results Not having any pain for the past 1 month and feeling like this is unusual because of her lack of BM Before the dulcolax she can get pains until she moves her bowels and this is not happening recently. Has not had any pains in the past 4 months Pt is scheduled for follow up 03/23, added constipation to the appt note Advised home care for constipation, stated understanding Advised of symptoms that would warrant ER visit, she stated understanding * Khushboo Vergara - 02/22/2025 8:47 AM EST Patient call requires triage: Symptoms patient is presenting: haven't used the bathroom in one month, stomach pain. How long has patient had these symptoms?: 1 month For ALL patients calling to schedule any [...] traveled recently to another state outside of [place], [place], [place], [place], [place], [place], [place]? no o If yes, did you quarantine [...] of accident/Injury: No If yes, gather 3rd constitution party insurance information Third Green Party Information: not applicable PCP: Hussein Delgado MD Payor: [employer]ARE / Plan: [employer] MEDICARE COMPLETE / Product Type: *No Product type* / documented in this encounter Plan of Treatment Upcoming Encounters Date Type Department Care Team (Late st Contact Info) Description 03/23/2025 1:00 PM EST Office Visit Adult Medicine [address] [phone] Hussein Delgado MD [address] [place] [address] 03/24/2025 8:30 AM EST Office Visit Orth[facility] - [place] [address] [id number] Luis Felipe Raman DPM [address] [address] 10/07/2025 11:30 AM EDT Office Visit Adult Medicine [address] [phone] Hussein Delgado MD [address] [place] [address] documented as of this encounter Visit Diagnoses Not on filedocumented in this encounter Additional Health Concerns Assessment Noted Time PHQ-9 Depression Total Score: 6 01/29/20 25 2:02 PM EDT documented as of this encounter Care Teams It Analyst Relationship Specialty Start Date End Date Hussein Delgado MD [address] [place] [address] PCP - General Internal Medicine 01/15/25 documented as of this encounter
[2025-02-25 22:13] VITALS: BP 143/86; PULSE 103; RESP 15; TEMP 36.7; O2SAT 96
== END 2025-02-25 22:21 | disposition home or self-care (01) ==
PROVIDERS: Emergency Provider Emergency Medicine
DX: K59.00 Constipation, unspecified (principal); Z79.899 Other long term (current) drug therapy
CPT/HCPCS: 74018; 99284

== ENCOUNTER → 2025-02-25 17:39 | Outpatient (BNV) | payer MEDICARE, MEDICAID, SELFPAY | PROVIDERS: Visit Provider Student in an Organized Health Care Education/Training Program | DX: K59.00 Constipation, unspecified (principal) | CPT/HCPCS: 74018 ==